=== PATIENT | female | born 2000 | race Caucasian/White ===

== ENCOUNTER 2021-12-07 10:39 | Emergency (ER) | payer MEDICAID, SELFPAY ==
--- NOTE | ~2021-12-07 | XR_ITS ---
EXAMINATION: XR ABDOMEN KUB CLINICAL INDICATION: Constipation COMPARISON: CT abdomen and pelvis from 04/28/2017 TECHNIQUE: AP view of the abdomen. FINDINGS: Nonobstructive bowel gas pattern. Mild fecal loading of the ascending colon. Osseous structures are intact. Visualized portions of the lower chest are unremarkable. Soft tissues are unremarkable. XR/XR KUB IMPRESSION: 1. Nonobstructive bowel gas pattern. 2. Mild fecal loading of the ascending colon.
[2021-12-07 10:44] VITALS: BP 144/91; PULSE 100; RESP 19; TEMP 36.6; O2SAT 98; BMI 25.6
[2021-12-07 10:56] LABS: MANUAL DIFF FLAG NO
[2021-12-07 10:57] LABS: Basophils Percent Auto 0.3 % (0-2); Eosinophils Absolute Auto 0.2 X10*3/uL (0.0-0.4); Eosinophils Percent Auto 2.5 % (0-4); Hematocrit 39.1 % (37.0-47.0); Imm Gran Abs Auto 0.01 X10*3/uL (0.00-0.03); Imm Gran Pct Auto 0.1 % (0.0-0.4); Lymphocytes Absolute Auto 2.4 X10*3/uL (1.2-4.9); Lymphocytes Percent Auto 31.9 % (20-40); Mean Corpuscular HGB Conc 33.2 g/dl (31.0-35.0); Mean Corpuscular Hemoglobin 28.2 pg (27.0-33.0); Mean Corpuscular Volume 84.8 fL (80.0-98.0); Mean Platelet Volume 9.6 fL (9.4-12.3); Monocytes Absolute Auto 0.6 X10*3/uL (0.1-1.2); Neutrophils Absolute Auto 4.4 x10*3/uL (2.0-8.3); Neutrophils Percent Auto 57.2 % (45-73); Platelet Count 398 X10*3/uL (160-400); Red Blood Count 4.61 X10*6/uL (4.20-5.50); Red Cell Distribution Width 11.9 % (11.0-16.0); White Blood Count 7.6 X10*3/uL (4.8-10.8)
[2021-12-07 10:58] LABS: Appearance Urine CLEAR; Color Urine YELLOW; Glucose Urine UA NEG (NEG); Leukocyte Esterase Urine NEG (NEG); Nitrite Urine NEG (NEG); Specific Gravity - Urine 1.015 (1.005-1.025); UACC Culture Trigger NO; Urine Blood 3+ (NEG); Urine Ketones NEG (NEG); Urine Protein NEG (NEG-TRACE)
[2021-12-07 11:05] LABS: Amorphous Sediment Urine 2+ /LPF; Bacteria Urine TRACE /LPF; Mucus Urine 1+ /LPF; RBC Urine 0-2 /HPF (0); Squamous Epithelial Cell Urine 4+ /LPF; WBC Urine 0-2 /HPF (0-4)
[2021-12-07 11:15] LABS: Alanine Aminotransferase 13 U/L (0-31); Albumin Level 4.4 g/dL (3.5-5.0); Alkaline Phosphatase 62 U/L (39-117); Anion Gap 13 (12-20); Aspartate Amino Transferase 14 U/L (5-31); Bilirubin Direct 0.2 mg/dL (0.0-0.5); Bilirubin Total 0.4 mg/dL (0.0-1.0); Blood Urea Nitrogen 8 mg/dL (9-16); Calcium 9.4 mg/dL (8.4-10.2); Carbon Dioxide 25 mmol/L (22-29); Chloride 103 mmol/L (96-108); Creatinine Clr Calc Pharmacy 108.8; Estimated Glomerular Filt Rate > 60; Glucose Random 100 mg/dL (60-115); Lipase 14 U/L (8-78); Potassium 3.9 mmol/L (3.3-5.1); Sodium 137 mmol/L (135-145); Total Protein 7.8 g/dL (6.5-8.0)
[2021-12-07 12:01] LABS: UPreg QC Valid YES; Urine Pregnancy NEGATIVE (NEGATIVE)
[2021-12-07 15:08] VITALS: BP 147/91; PULSE 79; RESP 19; TEMP 36.6; O2SAT 98
--- NOTE | 2021-12-07 15:10 | PC.NURSE ---
epigastric pain, nad, vitals rechecked
== END 2021-12-07 20:12 | disposition left against medical advice (07) ==
PROVIDERS: Emergency Provider Emergency Medicine; PCP Nurse Practitioner Family
DX: R10.9 Unspecified abdominal pain (principal); R11.2 Nausea with vomiting, unspecified
CPT/HCPCS: 36415; 74018; 80048; 80076; 81001; 81025; 83690; 85025; 99282; 99283

== ENCOUNTER 2022-01-04 15:26 | Outpatient (REF) | payer MEDICAID, SELFPAY ==
--- NOTE | ~2022-01-04 | US_ITS ---
EXAMINATION: US OBSTETRICAL ULTRASOUND CLINICAL INFORMATION: Less than 8 weeks of gestation, for size and dates. COMPARISON: None. LMP: 12/07/2021. Gestational age by maternal dates is 4 weeks 0 days. Estimated date of delivery by maternal dates is 09/13/2022. TECHNIQUE: Transabdominal imaging of pelvis is performed. FINDINGS: There is a single intrauterine gestational sac with visible yolk sac. No pole is visualized.. There is no significant subchorionic hemorrhage or hematoma. No heartbeat seen. MATERNAL ADNEXA: The right maternal ovary measures 3.0 x 2.1 x 1.9 cm. There is an involuting corpus luteal cyst The left maternal ovary measures 2.5 x 1.2 x 1.3 cm. No focal lesion seen. There is no significant maternal adnexal mass. No maternal pelvic ascites. US/US OB <= 14 weeks fetus IMPRESSION: There is an intrauterine gestational sac with yolk sac. pole is not seen. The gestational sac measurements correspond to 5 weeks and 3 days.
== END 2022-01-04 15:27 | disposition home or self-care (01) ==
LOC: HO.US 15:26
PROVIDERS: PCP Family Medicine; Visit Provider Family Medicine
DX: Z34.91 Encounter for supervision of normal pregnancy, unspecified, first trimester (principal); Z3A.01 Less than 8 weeks gestation of pregnancy
CPT/HCPCS: 76801

== ENCOUNTER → 2022-08-16 13:23 | Outpatient (BNV) | payer MEDICAID, SELFPAY | PROVIDERS: Visit Provider Internal Medicine Medical Oncology | DX: D50.9 Iron deficiency anemia, unspecified (principal) | CPT/HCPCS: 99204; 99213 ==

== ENCOUNTER 2022-09-26 12:54 | Outpatient (REF) | payer MEDICAID, SELFPAY ==
--- NOTE | ~2022-09-26 | US_ITS ---
EXAMINATION: US OBSTETRICAL ULTRASOUND CLINICAL INFORMATION: Confirm viability COMPARISON: None available.. LMP: 08/09/2022. Gestational age by maternal dates is 16 weeks 6 days. Estimated date of delivery by maternal dates is 05/16/2023. TECHNIQUE: Routine transabdominal pelvic ultrasound was performed FINDINGS: There is a single intrauterine gestational sac with visible yolk sac, embryo/fetus, and cardiac activity. There is no significant subchorionic hemorrhage or hematoma. HR: 123 beats per minute. CRL (crown rump length): 0.35 cm (6 weeks 0 days +/- 4 days). AARTI (estimated date of delivery): 05/22/2023 +/- 4 days. MATERNAL ADNEXA: The right maternal ovary measures 4.30 x 2.81 x 2.44 cm. There are 2 anechoic cysts measuring 2.0 x 1.4 x 1.7 cm and 2.0 x 2.4 x 2.7 cm. The left maternal ovary measures 2.73 x 1.96 x 1.54 cm There is no significant maternal adnexal mass. No maternal pelvic ascites. US/US OB <= 14 weeks fetus IMPRESSION: 1. Single intrauterine gestation with ultrasound gestational age of 6 weeks and 0 days +/- 4 days. 2. Estimated date of delivery is 05/22/2023 +/- 4 days. 3. 2 simple right ovarian cyst.
== END 2022-09-26 12:55 | disposition home or self-care (01) ==
LOC: HO.HMGCX 12:54
PROVIDERS: Visit Provider Family Medicine
DX: Z34.92 Encounter for supervision of normal pregnancy, unspecified, second trimester (principal); Z3A.16 16 weeks gestation of pregnancy
CPT/HCPCS: 76801

== ENCOUNTER 2022-12-07 09:10 | Outpatient (REF) | payer MEDICAID, SELFPAY | END 2022-12-07 09:11 | disposition home or self-care (01) | LOC: HO.MDS 09:10 | PROVIDERS: Visit Provider Internal Medicine Medical Oncology | DX: D50.9 Iron deficiency anemia, unspecified (principal) | CPT/HCPCS: 96365; J1756 ==

== ENCOUNTER 2022-12-14 09:28 | Outpatient (REF) | payer MEDICAID, SELFPAY | END 2022-12-14 09:29 | disposition home or self-care (01) | LOC: HO.MDS 09:28 | PROVIDERS: Visit Provider Internal Medicine Medical Oncology | DX: D50.9 Iron deficiency anemia, unspecified (principal) | CPT/HCPCS: 96365; J1756 ==

== ENCOUNTER 2022-12-21 09:32 | Outpatient (REF) | payer MEDICAID, SELFPAY | END 2022-12-21 09:33 | disposition home or self-care (01) | LOC: HO.MDS 09:32 | PROVIDERS: Visit Provider Internal Medicine Medical Oncology | DX: D50.9 Iron deficiency anemia, unspecified (principal) | CPT/HCPCS: 96365; J1756 ==

== ENCOUNTER 2022-12-28 09:30 | Outpatient (REF) | payer MEDICAID, SELFPAY ==
[2022-12-28 10:35] LABS: MANUAL DIFF FLAG NO
[2022-12-28 10:37] LABS: Basophils Percent Auto 0.5 % (0-2); Eosinophils Absolute Auto 0.2 X10*3/uL (0.0-0.4); Eosinophils Percent Auto 2.5 % (0-4); Hematocrit 36.6 % (37.0-47.0); Hemoglobin 11.4 g/dl (12.0-16.0); Imm Gran Abs Auto 0.01 X10*3/uL (0.00-0.03); Imm Gran Pct Auto 0.2 % (0.0-0.4); Lymphocytes Absolute Auto 1.5 X10*3/uL (1.2-4.9); Lymphocytes Percent Auto 24.8 % (20-40); Mean Corpuscular HGB Conc 31.1 g/dl (31.0-35.0); Mean Corpuscular Hemoglobin 24.1 pg (27.0-33.0); Mean Corpuscular Volume 77.2 fL (80.0-98.0); Mean Platelet Volume 10.2 fL (9.4-12.3); Monocytes Absolute Auto 0.5 X10*3/uL (0.1-1.2); Monocytes Percent Auto 8.2 % (2-11); Neutrophils Absolute Auto 3.9 x10*3/uL (2.0-8.3); Neutrophils Percent Auto 63.8 % (45-73); Platelet Count 369 X10*3/uL (160-400); Red Blood Count 4.74 X10*6/uL (4.20-5.50); Red Cell Distribution Width 19.4 % (11.0-16.0); White Blood Count 6.1 X10*3/uL (4.8-10.8)
[2022-12-28 11:20] LABS: Ferritin 76 ng/mL (10-122)
== END 2022-12-28 09:31 | disposition home or self-care (01) ==
LOC: HO.MDS 09:30
PROVIDERS: Visit Provider Internal Medicine Medical Oncology
DX: D50.9 Iron deficiency anemia, unspecified (principal)
CPT/HCPCS: 36415; 82728; 85025; 96365; J1756

== ENCOUNTER 2023-01-04 09:28 | Outpatient (REF) | payer MEDICAID, SELFPAY | END 2023-01-04 09:29 | disposition home or self-care (01) | LOC: HO.MDS 09:28 | PROVIDERS: Visit Provider Internal Medicine Medical Oncology | DX: D50.9 Iron deficiency anemia, unspecified (principal) | CPT/HCPCS: 96365; J1756 ==

== ENCOUNTER 2023-01-11 09:11 | Outpatient (REF) | payer MEDICAID, SELFPAY | END 2023-01-11 09:12 | disposition home or self-care (01) | LOC: HO.MDS 09:11 | PROVIDERS: Visit Provider Internal Medicine Medical Oncology | DX: D50.9 Iron deficiency anemia, unspecified (principal) | CPT/HCPCS: 96365; J1756 ==

== ENCOUNTER 2023-01-14 13:07 | Outpatient (AMB) | payer MEDICAID, SELFPAY ==
[2023-01-14 13:11] VITALS: BP 140/63; PULSE 84; BMI 27.6
--- NOTE | 2023-01-14 13:11 | A.OFFVIS_ITS ---
Intake Vital Signs 01/14/23 13:11 Height 5 ft 2 in Weight 151 lb BMI 27.6 BP 140/63 H Blood Pressure Location Rt brachial Position Sitting Pulse 84 Intake Visit Reasons: Skin lesion anus Intake Note: This patient presents for an assessment for skin lesions of the anus. Patient c/o; occasional rectal bleeding, describes feeling a tear, describes history of constiapation. In Service Education Teacher Required: No Accompanied by: Mother Allergies fluoxetine [From PROZAC] Allergy (Unknown, Unverified 01/14/23 13:16) HIVES penicillin V Allergy (Unknown, Verified 01/14/23 13:16) hives Medication List - Last Reconciled 01/14/23 by Bravo Jarrell MD acetaminophen 325 mg PO DAILY PRN oxycodone 5 mg PO DAILY PRN HPI Skin lesion anus HPI Details 22-year-old female here for a ?anal lesion . She had noticed this when she was 6 years ago. She says that this has persisted and she has had significant discomfort along with difficulty with hygiene. She wants this removed. She also describes a history of chronic constipation. She denies bleeding. [facility] Medical History (Updated 01/14/23 @ 13:31 by Bravo Jarrell MD) External hemorrhoids with complication Surgical History History of Family History Maternal Grandmother Colon cancer Social History Household Members: Children Housing: House Are you a primary property caretaker to a significant other at home: No Do you presently have visiting nurse or other home services: No Patient Tobacco Use Status: Never used Tobacco Second Hand Smoke Exposure: No service: No Current occupational status: unemployed Review of Systems Const Denies chills and Denies fever(s) Card Denies chest pain, Denies dyspnea and Denies dyspnea on exertion Resp Denies cough, Denies dyspnea and Denies dyspnea on exertion GI Denies hematochezia, Denies change in bowel habits and Reports constipation Denies hematuria Musc Denies back pain and Denies limited range of motion Neuro Denies focal weakness and Denies convulsions Psych Denies depression and Denies mood swings Physical Exam Vital Signs: Last Vital Signs Pulse 84 01/14/23 13:11 BP 140/63 H 01/14/23 13:11 BMI result Body Mass Index 27.6 Const General: comfortable and no acute distress Orientation/consciousness: patient oriented x3 Neck Neck: Yes no lymphadenopathy Resp Auscultation: clear to auscultation bilaterally Cardio Rhythm: regular rhythm GI Other: Rectal exam shows large external hemorrhoidal column on the left anal verge to the anal canal Palpation (GI): Soft to palpation, nontender and no guarding Neuro General: patient oriented x3 Assessment & Plan Assessment & Plan (1) External hemorrhoids with complication: Code(s): K64.4 - Residual hemorrhoidal skin tags Plan: She has a large external hemorrhoidal column as described above. She wants to proceed with hemorrhoidectomy. She describes difficulty with hygiene and recurrent discomfort I explained to the technique of exam under anesthesia and hemorrhoidectomy. I reviewed with her the technique of this procedure as well as the risks, benefits, and alternatives. She says that she wanted this done under local anesthesia. I explained to her that it will be very difficult to do his under local anesthesia because of the location and size of the lesion. I told her that it will be extremely uncomfortable for her to be awake and it may be unsafe. She says he does not want to proceed at this time if this requires anesthesia. I told her and her mother that she is welcome to come back when she decides to proceed. Coding Level of Care Code New Pt Level 3 (58703) Diagnoses External hemorrhoids with complication K64.4
== END 2023-01-14 13:35 | disposition home or self-care (01) ==
PROVIDERS: PCP Family Medicine; Referring Provider Family Medicine; Visit Provider Surgery
DX: K64.4 Residual hemorrhoidal skin tags (principal)
CPT/HCPCS: 99203

== ENCOUNTER → 2023-01-14 13:07 | Outpatient (BNVA) | payer MEDICAID, SELFPAY | PROVIDERS: PCP Family Medicine; Referring Provider Family Medicine; Visit Provider Surgery | DX: K64.4 Residual hemorrhoidal skin tags (principal) | CPT/HCPCS: 99202 ==

== ENCOUNTER 2023-01-18 09:36 | Outpatient (REF) | payer MEDICAID, SELFPAY | END 2023-01-18 09:37 | disposition home or self-care (01) | LOC: HO.MDS 09:36 | PROVIDERS: Visit Provider Internal Medicine Medical Oncology | DX: D50.8 Other iron deficiency anemias (principal) | CPT/HCPCS: 96365; J1756 ==

== ENCOUNTER 2023-01-31 13:41 | Outpatient (REF) | payer MEDICAID, SELFPAY ==
[2023-01-31 14:24] LABS: MANUAL DIFF FLAG NO
[2023-01-31 14:28] LABS: Basophils Percent Auto 0.5 % (0-2); Eosinophils Absolute Auto 0.2 X10*3/uL (0.0-0.4); Hematocrit 38.5 % (37.0-47.0); Hemoglobin 12.4 g/dl (12.0-16.0); Imm Gran Abs Auto 0.01 X10*3/uL (0.00-0.03); Imm Gran Pct Auto 0.2 % (0.0-0.4); Lymphocytes Absolute Auto 2.1 X10*3/uL (1.2-4.9); Lymphocytes Percent Auto 36.7 % (20-40); Mean Corpuscular HGB Conc 32.2 g/dl (31.0-35.0); Mean Corpuscular Hemoglobin 26.4 pg (27.0-33.0); Mean Corpuscular Volume 82.1 fL (80.0-98.0); Monocytes Absolute Auto 0.5 X10*3/uL (0.1-1.2); Monocytes Percent Auto 8.9 % (2-11); Neutrophils Absolute Auto 2.9 x10*3/uL (2.0-8.3); Neutrophils Percent Auto 50.7 % (45-73); Platelet Count 322 X10*3/uL (160-400); Red Blood Count 4.69 X10*6/uL (4.20-5.50); White Blood Count 5.6 X10*3/uL (4.8-10.8)
[2023-01-31 15:06] LABS: Ferritin 117 ng/mL (10-122)
== END 2023-01-31 13:42 | disposition home or self-care (01) ==
LOC: HO.MDS 13:41
PROVIDERS: Visit Provider Internal Medicine Medical Oncology
DX: D50.8 Other iron deficiency anemias (principal)
CPT/HCPCS: 36415; 82728; 85025; 96365; J1756

== ENCOUNTER 2023-06-17 13:40 | Outpatient (REF) | payer MEDICAID, SELFPAY ==
[2023-06-18 08:39] LABS: HCG Tumor Marker 70 mIU/mL
== END 2023-06-17 13:41 | disposition home or self-care (01) ==
LOC: HO.CHCLDS 13:40
PROVIDERS: Visit Provider Family Medicine
DX: Z34.90 Encounter for supervision of normal pregnancy, unspecified, unspecified trimester (principal)
CPT/HCPCS: 36415; 84702

== ENCOUNTER 2023-07-13 14:37 | Emergency (ER) | payer MEDICAID, SELFPAY ==
--- NOTE | ~2023-07-13 | CT_ITS ---
EXAMINATION: CT HEAD WITHOUT CONTRAST CLINICAL INFORMATION: Migraine. COMPARISON: None available. TECHNIQUE: Contiguous axial imaging was performed from the skull base to vertex without intravenous administration of contrast. This CT examination was performed using dose optimization techniques as appropriate, variously including the following: *Automated exposure control. *Adjustment of mA and/or kV according to patient size (this includes techniques or standardized protocols for targeted exams where dose is matched to indication/reason for exam; i.e. extremities or head). *Use of iterative reconstruction technique. DLP: 616 mGy-cm FINDINGS: There is no evidence of acute intracranial hemorrhage or edematous territorial infarction. Perez-white matter differentiation is preserved. There is no abnormal attenuation within the brain parenchyma. The ventricles are normal in morphology and size. No evidence for obstructive hydrocephalus. Normal positioning of the cerebellar tonsils. The suprasellar cistern remains widely patent. No abnormal mass effect or midline shift. No extra-axial fluid collections. No acute soft tissue or osseous abnormalities. Mild mucosal thickening of the paranasal sinuses. The mastoid air cells and middle ear cavities are clear. CT/CT head/brain wo IV con IMPRESSION: No evidence of acute intracranial hemorrhage or edematous territorial infarction. No abnormal mass effect on the noncontrast evaluation.
[2023-07-13 15:41] VITALS: BP 137/91; PULSE 92; RESP 18; TEMP 37.3; O2SAT 100; BMI 26.5
--- NOTE | 2023-07-13 15:41 | ED_ITS ---
HPI - Headache General Chief Complaint: Headache Stated Complaint: headache/ nausea Related Data Home Medications Medication Instructions Recorded Confirmed acetaminophen 325 mg tablet 325 mg PO DAILY PRN Pain 08/16/22 05/07/23 oxycodone 5 mg tablet 5 mg PO DAILY PRN Back Pain 08/16/22 05/07/23 Allergies Allergy/AdvReac Type Severity Reaction Status Date / Time fluoxetine [From PROZAC] Allergy Unknown HIVES Verified 07/13/23 15:41 penicillin V Allergy Unknown hives Verified 07/13/23 15:41 ferrous sulfate AdvReac Stomach Verified 07/13/23 15:41 Upset PMFSH Past Medical History Onset Date is defined in the Problem List Problems that require an onset date and time if occurred within 24 hrs of arrival to the ED Aortic Dissection and Rupture; Neurologic impairment; Cardiopulmonary Arrest; Endotracheal Intubation; Insertion or Replacement of Mechanical Circulatory Assist Device Medical History (Updated 07/16/23 @ 10:02 by ORVILLE Ball) External hemorrhoids with complication Surgical History History of Family History Family History Maternal Grandmother Colon cancer Social History Social History Household Members: Children Housing: House Are you a primary respiratory care practitioner to a significant other at home: No Do you presently have visiting nurse or other home services: No Patient Tobacco Use Status: Never used Tobacco Second Hand Smoke Exposure: No Advance Directives: No Advance Directives Information Provided: Yes service: No Current occupational status: unemployed Physical Exam 2 Vital Signs: Vital Signs: Last Vital Signs Temp 99.2 F 07/13/23 15:41 Pulse 92 07/13/23 15:41 Resp 18 07/13/23 15:41 BP 137/91 H 07/13/23 15:41 Pulse Ox 100 07/13/23 15:41 O2 Del Method Room Air 07/13/23 15:41 BMI result Body Mass Index 26.5 Course Course Course Narrative: This is an RME: Additional HPI, ROS, PE not included below will be deferred to primary provider. This is a 23 y/o F presenting to the ER with complaints of severe headache x 3 days ago. Endorsing vomiting which started today. Left methodist area. Hx of migraines, this headache is different as it is more severe. Pain worsens more with straining (having a BM). Had miscarriage 2 weeks ago > was 6 weeks . Plan: Reevaluation(s) Reevaluation #1: Patient eloped prior to completing treatment Medical Decision Making Lab Data 07/13/23 15:53 07/13/23 15:53 Labs: Lab Results 07/13/23 Range/Units 15:53 WBC 12.4 H (4.8-10.8) X10*3/uL RBC 4.70 (4.20-5.50) X10*6/uL Hgb 13.4 (12.0-16.0) g/dl Hct 39.6 (37.0-47.0) % MCV 84.3 (80.0-98.0) fL MCH 28.5 (27.0-33.0) pg MCHC 33.8 (31.0-35.0) g/dl RDW 11.8 (11.0-16.0) % Plt Count 366 (160-400) X10*3/uL MPV 9.7 (9.4-12.3) fL Immature Gran % (Auto) 0.3 (0.0-0.4) % Neut % (Auto) 81.4 H (45-73) % Lymph % (Auto) 11.5 L (20-40) % [place] % (Auto) 5.3 (2-11) % Eos % (Auto) 1.3 (0-4) % Baso % (Auto) 0.2 (0-2) % Lymph # (Auto) 1.4 (1.2-4.9) X10*3/uL [place] # (Auto) 0.7 (0.1-1.2) X10*3/uL Eos # (Auto) 0.2 (0.0-0.4) X10*3/uL Baso # (Auto) 0.0 (0.0-0.2) X10*3/uL Abs Immat Gran (auto) 0.04 H (0.00-0.03) X10*3/uL Absolute Neuts (auto) 10.1 H (2.0-8.3) x10*3/uL Absolute Nucleated RBC 0.000 (0.0-0.012) X10*3/uL Nucleated RBC % (auto) 0.0 (0.0-0.2) /100WBC Sodium 138 (135-145) mmol/L Potassium 4.6 (3.3-5.1) mmol/L Chloride 106 (96-108) mmol/L Carbon Dioxide 25 (22-29) mmol/L Anion Gap 12 (12-20) BUN 8 L (9-16) mg/dL Creatinine 0.67 (0.5-1.4) mg/dL Estim Creat Clear Calc 115.2 Estimated GFR > 60 Random Glucose 96 (60-115) mg/dL Calcium 9.8 (8.4-10.2) mg/dL Total Bilirubin 0.3 (0.0-1.0) mg/dL AST 33 H (5-31) U/L ALT 38 H (0-31) U/L Alkaline Phosphatase 79 (39-117) U/L Total Protein 7.9 (6.5-8.0) g/dL Albumin 4.1 (3.5-5.0) g/dL Beta HCG, Quant < 2 mIU/mL Urine Color Yellow Urine Appearance Clear Urine pH 6.5 (5.0-9.0) Ur Specific [place] 1.025 (1.005-1.025) Urine Protein Negative (Neg-Trace) mg/dL Urine Glucose (UA) Negative (Negative) mg/dL Urine Ketones Negative (Negative) mg/dL Urine Blood Negative (Negative) Urine Nitrite Negative (Negative) Ur Leukocyte Esterase Negative (Negative) Discharge Plan Discharge Clinical Impression: Headache Patient Disposition: Left W/O Completing Treatment Prescriptions: No Action acetaminophen 325 mg tablet 325 mg PO DAILY PRN (Reason: Pain) oxycodone 5 mg tablet 5 mg PO DAILY PRN (Reason: Back Pain) Discharge Date/Time: 07/13/23 22:19
[2023-07-13 15:58] LABS: MANUAL DIFF FLAG NO
[2023-07-13 16:07] LABS: Appearance Urine Clear; Color Urine Yellow; Glucose Urine UA Negative (Negative); Leukocyte Esterase Urine Negative (Negative); Nitrite Urine Negative (Negative); PH 6.5 (5.0-9.0); Specific Gravity - Urine 1.025 (1.005-1.025); Urine Blood Negative (Negative); Urine Ketones Negative (Negative); Urine Protein Negative (Neg-Trace)
[2023-07-13 16:10] LABS: Basophils Percent Auto 0.2 % (0-2); Eosinophils Absolute Auto 0.2 X10*3/uL (0.0-0.4); Eosinophils Percent Auto 1.3 % (0-4); Hematocrit 39.6 % (37.0-47.0); Hemoglobin 13.4 g/dl (12.0-16.0); Imm Gran Abs Auto 0.04 X10*3/uL (0.00-0.03); Imm Gran Pct Auto 0.3 % (0.0-0.4); Lymphocytes Absolute Auto 1.4 X10*3/uL (1.2-4.9); Lymphocytes Percent Auto 11.5 % (20-40); Mean Corpuscular HGB Conc 33.8 g/dl (31.0-35.0); Mean Corpuscular Hemoglobin 28.5 pg (27.0-33.0); Mean Corpuscular Volume 84.3 fL (80.0-98.0); Mean Platelet Volume 9.7 fL (9.4-12.3); Monocytes Absolute Auto 0.7 X10*3/uL (0.1-1.2); Monocytes Percent Auto 5.3 % (2-11); Neutrophils Absolute Auto 10.1 x10*3/uL (2.0-8.3); Neutrophils Percent Auto 81.4 % (45-73); Platelet Count 366 X10*3/uL (160-400); Red Cell Distribution Width 11.8 % (11.0-16.0); White Blood Count 12.4 X10*3/uL (4.8-10.8)
[2023-07-13 16:13] LABS: Alanine Aminotransferase 38 U/L (0-31); Albumin Level 4.1 g/dL (3.5-5.0); Alkaline Phosphatase 79 U/L (39-117); Anion Gap 12 (12-20); Aspartate Amino Transferase 33 U/L (5-31); Bilirubin Total 0.3 mg/dL (0.0-1.0); Blood Urea Nitrogen 8 mg/dL (9-16); Calcium 9.8 mg/dL (8.4-10.2); Carbon Dioxide 25 mmol/L (22-29); Chloride 106 mmol/L (96-108); Creatinine Clr Calc Pharmacy 115.2; Estimated Glomerular Filt Rate > 60; Glucose Random 96 mg/dL (60-115); Potassium 4.6 mmol/L (3.3-5.1); Sodium 138 mmol/L (135-145); Total Protein 7.9 g/dL (6.5-8.0)
[2023-07-13 16:20] LABS: HCG Quantitative < 2 mIU/mL
--- NOTE | 2023-07-13 22:18 | PC.NURSE ---
Pt not visualized in ED WR when called.
== END 2023-07-13 22:19 | disposition left against medical advice (07) ==
PROVIDERS: Physician Assistant Medical; Emergency Provider Emergency Medicine
DX: R51.9 Headache, unspecified (principal)
CPT/HCPCS: 36415; 70450; 80053; 81003; 84702; 85025; 99282; 99284

== ENCOUNTER 2024-03-17 13:00 | Outpatient (RCR) | payer MEDICAID, SELFPAY ==
[2024-01-28 11:11] VITALS: BP 128/79; PULSE 82; RESP 14; TEMP 36.6; O2SAT 100
[2024-01-28] MEDS: Iron Sucrose Complex 200 MG in 0.9 % Sodium Chloride 100 ML 440 MG IV (11:21)
[2024-01-28] MEDS: 0.9 % Sodium Chloride Flush 10 ML SYRINGE 5 ML IVFLUSH (11:43)
[2024-02-04 12:56] VITALS: BP 136/68; PULSE 96; RESP 18; TEMP 36.4; O2SAT 98
[2024-02-04] MEDS: Iron Sucrose Complex 200 MG in 0.9 % Sodium Chloride 100 ML 440 MG IV (13:15)
[2024-02-04] MEDS: 0.9 % Sodium Chloride Flush 10 ML SYRINGE 5 ML IVFLUSH (13:31)
[2024-02-11 13:45] VITALS: BP 119/71; PULSE 79; RESP 14; TEMP 36.8; O2SAT 99
[2024-02-11] MEDS: Iron Sucrose Complex 200 MG in 0.9 % Sodium Chloride 100 ML 440 MG IV (13:54)
[2024-02-11] MEDS: 0.9 % Sodium Chloride Flush 10 ML SYRINGE 5 ML IVFLUSH (14:17)
[2024-02-18 13:26] VITALS: BP 117/78; PULSE 94; RESP 18; TEMP 37; O2SAT 98
[2024-02-18 13:42] LABS: MANUAL DIFF FLAG NO
[2024-02-18 13:46] LABS: Basophils Percent Auto 0.1 % (0-2); Eosinophils Absolute Auto 0.2 X10*3/uL (0.0-0.4); Eosinophils Percent Auto 2.5 % (0-4); Hematocrit 32.7 % (37.0-47.0); Hemoglobin 10.3 g/dl (12.0-16.0); Imm Gran Abs Auto 0.04 X10*3/uL (0.00-0.03); Imm Gran Pct Auto 0.6 % (0.0-0.4); Lymphocytes Absolute Auto 1.7 X10*3/uL (1.2-4.9); Mean Corpuscular HGB Conc 31.5 g/dl (31.0-35.0); Mean Corpuscular Hemoglobin 26.3 pg (27.0-33.0); Mean Corpuscular Volume 83.4 fL (80.0-98.0); Mean Platelet Volume 9.3 fL (9.4-12.3); Monocytes Absolute Auto 0.6 X10*3/uL (0.1-1.2); Neutrophils Absolute Auto 4.2 x10*3/uL (2.0-8.3); Neutrophils Percent Auto 62.8 % (45-73); Platelet Count 264 X10*3/uL (160-400); Red Blood Count 3.92 X10*6/uL (4.20-5.50); Red Cell Distribution Width 16.3 % (11.0-16.0); White Blood Count 6.8 X10*3/uL (4.8-10.8)
[2024-02-18] MEDS: Iron Sucrose Complex 200 MG in 0.9 % Sodium Chloride 100 ML 400 MG IV (13:46)
[2024-02-18] MEDS: 0.9 % Sodium Chloride Flush 10 ML SYRINGE 5 ML IVFLUSH (14:04)
[2024-02-18 14:22] LABS: Ferritin 77 ng/mL (10-122)
[2024-02-25 13:43] VITALS: BP 129/77; PULSE 90; RESP 20; TEMP 37.2; O2SAT 99
[2024-02-25] MEDS: Iron Sucrose Complex 200 MG in 0.9 % Sodium Chloride 100 ML 440 MG IV (13:51)
[2024-03-03 13:52] VITALS: BP 119/81; PULSE 100; RESP 18; TEMP 36.7; O2SAT 99
[2024-03-03] MEDS: Iron Sucrose Complex 200 MG in 0.9 % Sodium Chloride 100 ML 440 MG IV (14:00)
[2024-03-03] MEDS: 0.9 % Sodium Chloride Flush 10 ML SYRINGE 5 ML IVFLUSH (14:17)
[2024-03-10 13:45] VITALS: BP 143/92; PULSE 95; RESP 22; TEMP 37.2; O2SAT 100
[2024-03-10] MEDS: Iron Sucrose Complex 200 MG in 0.9 % Sodium Chloride 100 ML 440 MG IV (13:54)
[2024-03-17 13:56] VITALS: BP 130/83; PULSE 110; RESP 20; TEMP 36; O2SAT 99
[2024-03-17] MEDS: Iron Sucrose Complex 200 MG in 0.9 % Sodium Chloride 100 ML 440 MG IV (14:17)
[2024-03-17] MEDS: 0.9 % Sodium Chloride Flush 10 ML SYRINGE 5 ML IVFLUSH (14:28)
--- NOTE | 2024-03-17 14:51 | HO.INF ---
lab in - blood drawn. [facility] well.
[2024-03-17 14:53] LABS: MANUAL DIFF FLAG NO
[2024-03-17 15:06] LABS: Basophils Percent Auto 0.3 % (0-2); Eosinophils Absolute Auto 0.2 X10*3/uL (0.0-0.4); Eosinophils Percent Auto 2.6 % (0-4); Hematocrit 35.9 % (37.0-47.0); Imm Gran Abs Auto 0.05 X10*3/uL (0.00-0.03); Imm Gran Pct Auto 0.7 % (0.0-0.4); Lymphocytes Absolute Auto 1.4 X10*3/uL (1.2-4.9); Mean Corpuscular HGB Conc 33.4 g/dl (31.0-35.0); Mean Corpuscular Hemoglobin 27.8 pg (27.0-33.0); Mean Corpuscular Volume 83.3 fL (80.0-98.0); Mean Platelet Volume 9.4 fL (9.4-12.3); Monocytes Absolute Auto 0.6 X10*3/uL (0.1-1.2); Neutrophils Absolute Auto 4.5 x10*3/uL (2.0-8.3); Neutrophils Percent Auto 66.4 % (45-73); Platelet Count 239 X10*3/uL (160-400); Red Blood Count 4.31 X10*6/uL (4.20-5.50); Red Cell Distribution Width 17.7 % (11.0-16.0); White Blood Count 6.8 X10*3/uL (4.8-10.8)
[2024-03-17 15:29] LABS: Ferritin 149 ng/mL (10-122)
== END 2024-03-17 14:49 | disposition home or self-care (01) ==
LOC: HO.INF 13:00
PROVIDERS: Visit Provider Internal Medicine Medical Oncology
DX: D50.9 Iron deficiency anemia, unspecified (principal)
CPT/HCPCS: 36415; 82728; 85025; 96365; 96374; J1756

== ENCOUNTER 2024-12-01 14:20 | Outpatient (REF) | payer MEDICAID, SELFPAY ==
--- OUTSIDE RECORDS SUMMARY | 2024-12-01 16:09 | XMS_ITS | Encounter Summary ---
Author Organization [employer] Address [address] [place] [address] Care Team Providers Care Remotely Piloted Vehicle Controller Name Role Phone Hanna Mills MD Primary Care Provider [phone] Encounter Details Date Type Department Care Team (Late st Contact Info) Description 11/26/2023 Orders Only [facility] [address] [place], [place] [phone] Blake Enciso MD [address] [place], [place] [phone] Social History Tobacco Use Types Packs/Day Years Used Date Smoking Tobacco: Never Passive Smoke Exposure: Never Smokeless Tobacco: Never Alcohol Use Standard Drinks/Week Comments Never 0 (1 standard drink = 0.6 oz pur e alcohol) Depression Answer Date Recorded Patient Health Questionnaire-9 Score 11 04/09/2023 Housing Stability Answer Date Recorded What is your housing situation today? I have sanket bar 09/04/[address] you li ve. Do you have problems with any of the following? None of the above 09/04/2023 Food Insecurity Answer Date Recorded Within the past 12 months, y ou worried that your food would run out before you got money to buy more: Never True 09/04/2023 Within the past 12 months,th e food you bought just didn't last and you didn't have enough money to get more: Never True 11/2023 Transportation Answer Date Recorded In the past 12 months, has l ack of transportation kept you from medical appts, meetings, work or from getting things needed for daily living? Yes, it has kept me from medical appointments or getting medications. 09/04/2023 Utilities Answer Date Recorded In the past 12 months, has t he electric, gas, oil or water company threatened to shut off services in your home? No 09/04/2023 Depression Answer Date Recorded Patient Health Questionnaire-2 Score 5 04/09/2023 Comments Yes Sex and Gender Information Value Date Recorded Sex Assigned at Female 04/30/2022 10:15 AM EDT Legal Sex Female 10:15 AM EDT Gender Identity Female 04/30/2022 10:15 AM EDT Sexual Orientation Straight 04/30/2022 10 :15 AM EDT documented as of this encounter Plan of Treatment Upcoming Encounters Date Type Department Care Team (Late st Contact Info) Description 12/29/2024 1:30 PM EDT Office Visit [facility] [address] [place] [phone] Blake Enciso MD [address] [place] [phone] documented as of this encounter Visit Diagnoses Not on filedocumented in this encounter Additional Health Concerns Assessment Noted Time PHQ-9 Depression Total Score: 11 023 11:56 AM EDT documented as of this encounter Care Teams Remotely Piloted Vehicle Controller Relationship Specialty Start Date End Date Hanna Mills MD [address] [place] [phone] PCP - General Family Medicine 02/25/22 documented as of this encounter
[2024-12-01 16:58] LABS: MANUAL DIFF FLAG NO
[2024-12-01 17:15] LABS: Basophils Percent Auto 0.4 % (0-2); Eosinophils Percent Auto 0.4 % (0-4); Hematocrit 32.2 % (37.0-47.0); Hemoglobin 9.7 g/dl (12.0-16.0); Imm Gran Abs Auto 0.01 X10*3/uL (0.00-0.03); Imm Gran Pct Auto 0.1 % (0.0-0.4); Lymphocytes Absolute Auto 1.5 X10*3/uL (1.2-4.9); Lymphocytes Percent Auto 22.5 % (20-40); Mean Corpuscular HGB Conc 30.1 g/dl (31.0-35.0); Mean Corpuscular Hemoglobin 22.7 pg (27.0-33.0); Mean Corpuscular Volume 75.2 fL (80.0-98.0); Mean Platelet Volume 10.6 fL (9.4-12.3); Monocytes Absolute Auto 0.4 X10*3/uL (0.1-1.2); Monocytes Percent Auto 6.3 % (2-11); Neutrophils Absolute Auto 4.8 x10*3/uL (2.0-8.3); Neutrophils Percent Auto 70.3 % (45-73); Platelet Count 476 X10*3/uL (160-400); Red Blood Count 4.28 X10*6/uL (4.20-5.50); Red Cell Distribution Width 13.9 % (11.0-16.0); White Blood Count 6.8 X10*3/uL (4.8-10.8)
[2024-12-01 17:45] LABS: Alanine Aminotransferase 33 U/L (0-31); Albumin Level 4.8 g/dL (3.5-5.0); Alkaline Phosphatase 65 U/L (39-117); Anion Gap 10 (12-20); Aspartate Amino Transferase 27 U/L (5-31); Bilirubin Total 0.3 mg/dL (0.0-1.0); Blood Urea Nitrogen 12 mg/dL (9-16); Calcium 9.6 mg/dL (8.4-10.2); Carbon Dioxide 27 mmol/L (22-29); Chloride 105 mmol/L (96-108); Estimated Glomerular Filt Rate > 60; Glucose Random 93 mg/dL (60-115); Potassium 4.2 mmol/L (3.3-5.1); Sodium 138 mmol/L (135-145); Total Protein 7.9 g/dL (6.5-8.0)
[2024-12-01 17:48] LABS: Ferritin 4 ng/mL (10-122)
[2024-12-03 04:12] LABS: Syphilis Screen Nonreactive (Nonreactive)
[2024-12-03 05:14] LABS: HIV AB/AG Nonreactive (Nonreactive); HIV Num 1 0.08 S/CO (0.00-0.99); ~HepC Num1 0.26 S/CO (0.00-0.79); ~Hepatitis C Antibody Nonreactive (Nonreactive)
[2024-12-04 05:30] LABS: Hepatitis A Antibody IgG REACTIVE (Nonreactive); ~Hepatitis A Antibody IgG 4.02 S/CO (0.00-0.99)
[2024-12-04 08:22] LABS: TS Negative Control Passed; TS Panel A 0; TS Panel B 0; TS Positive Control Passed; TSpotTB Negative (Negative)
== END 2024-12-01 14:21 | disposition home or self-care (01) ==
LOC: HO.HHCL 14:20
PROVIDERS: Internal Medicine Medical Oncology; Visit Provider Emergency Medicine
DX: D50.9 Iron deficiency anemia, unspecified (principal); F11.20 Opioid dependence, uncomplicated
CPT/HCPCS: 36415; 80053; 82728; 85025; 86481; 86708; 86780; 86803; 87389

== ENCOUNTER 2025-01-08 09:35 | Outpatient (AMB) | payer MEDICAID, SELFPAY ==
--- OUTSIDE RECORDS SUMMARY | 2025-01-08 09:53 | XMS_ITS | Clinical Summary ---
Author Organization [facility] Address [address] [place] [address] Care Team Providers Care Blocker And Sewer Name Role Phone Unavailable Primary Care Provider Unavailabl e Social History Tobacco Use Types Packs/Day Years Used Date Smoking Tobacco: Never Assessed Sex and Gender Information Value Date Recorded Sex Assigned at Female 10/17/2023 2:58 PM EDT Gender Identity Not on file Sexual Orientation Not on file Job Start Date Occupation Industry Not on file Not on file Not on file Plan of Treatment Not on file
--- OUTSIDE RECORDS SUMMARY | 2025-01-08 09:53 | XMS_ITS | Encounter Summary ---
Author Organization [employer] Address [address] [place] [address] Care Team Providers Care Processing Clerk Name Role Phone Hanna Mills MD Primary Care Provider Encounter Details Date Type Department Care Team (Late st Contact Info) Description 11/26/2023 Orders Only [facility] [address] [place], [place] [phone] Blake Enciso MD [address] [place], [place] [phone] Social History Tobacco Use Types Packs/Day Years [...] Care Team (Late st Contact Info) Description 01/26/2025 1:45 PM EDT Office Visit [facility] [address] [place] [phone] Blake Enciso MD [address] [place] [phone] documented as of this encounter Visit Diagnoses Not on filedocumented in this encounter Additional Health Concerns Assessment Noted Time PHQ-9 Depression Total Score: 11 023 11:56 AM EDT documented as of this encounter Care Teams Processing Clerk Relationship Specialty Start Date End Date Hanna Mills MD [address] [place] [id number] PCP - General Family Medicine 02/25/22 documented as of this encounter
--- OUTSIDE RECORDS SUMMARY | 2025-01-08 09:53 | XMS_ITS | Clinical Summary ---
Author Organization [facility] Address [address] [place] [address] Care Team Providers Care Fitter Armament Name Role Phone Physician, No Pcp Primary Care Provider Unavaila ble Allergies Active Allergy Reactions Criticality Noted Date Comments Fluoxetine Hives 10/22/2023 Hives/Urticaria Penicillins Hives 12/07/2019 Hives/Urticaria Medications aspirin 81 mg EC tablet Take 2 Tablets by mouth daily. 11/28/2023 Active blood pressure test kit (BLOOD PRESSURE MONITOR [facility] [place]) USE TO CHECK BLOOD PRESSURE EVERY DAY NEEDED 10/01/2023 Active docusate sodium (COLACE) 100 mg capsule TAKE 1 OR 2 CAPSULES BY MOUTH AT BEDTIME NEEDED FOR CONSTIPATION. 09/17/2023 Active ferrous sulfate 325 mg (65 mg elemental iron) tablet Take 1 Tablet by mouth daily. 12/29/2023 01/23/20 Active hydrOXYzine pamoate (VISTARIL) 25 mg capsule Take 1 Capsule by mouth 3 times daily as needed for Itching. 01/04/2024 Active PNV no.153/FA/om3/d ward/epa/fish ( GUMMIES ORAL) BZ-Pzh-EI-Ome ga-3 ( Gummies/DHA & FA) 0.4-32.5 MG Chew Tab Take by mouth. Active buprenorphine-n aloxone (Suboxone) 2-0.[address] 1 FILM UNDER THE TONGUE 2 TIMES DAILY FOR 15 DAYS. 11/11/2023 Active valACYclovir (VALTREX) 500 mg tablet Take 1 Tablet by mouth daily for 30 days. Active levonorgestreL (PLAN B) 1.5 mg tablet Take 1 tablet (1.5 mg total) by mouth 1 (one) time for 1 dose. 1 tablet 06/11/2024 Active levonorgestreL (PLAN B) 1.5 mg tablet Take 1 tablet (1.5 mg total) by mouth 1 (one) time for 1 dose. 1 tablet 06/11/2024 Active Active Problems Problem Noted Date Diagnosed Date Hx of preeclampsia, prior , currently p regnant 05/25/2024 Overview (05/25/2024): Baseline HELLP labs ordered, all done and normal Taking asa History of 2 sections 05/25/2024 Overview (05/25/2024): X2 Records from 2017 C/S at [facility]: Pt aware [facility] will only do a repeat c/s, pt states understanding She declines tubal ligation at delivery. REPEAT c/section ángel on 03/23 8am, pt is aware to arrive at 6am, NPO after MN L & D ANM will call pt 1-2 days prior to surg for confirmation History of hemorrhage 05/25/2024 History of depression 05/25/2024 History of gestational hypertension 05/25/2024 Overview (05/25/2024): 2020 - pt was dx'd with gHTN IMPRESSION: 19 yr. old PPD # 10 Ghtn diagnosed in PP period PLAN: Asymptomatic, labs normal given her continued elevated BPs consider ghtn and needs daily treatment. Started patient on lab 100 BID to see how she does. D/W her si/sx of BP getting too low and BP getting high. D/W her usually in PP this is a temporary thing and we can usually get a patient off the BP meds by 6 weeks PP. She has apt next week so will have BP check at that time and call if any other issues or concerns. Doesn't meet criteria for pre-e. 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 Exaggerated stress response - seen by cardiology multiple times after first during which she had PIH and continued to have elevated BPs for months after , as well as elevated BPs in emergency settings. Per cards notes , possibly she has an exagerrated stress response, rather than true cHTN- conservatively can treat at [facility] in as we have elevated BPS in office < 20 weeks Baseline HELLP labs normal Pt taking daily asa Baseline (<20 weeks) CBC, AST, ALT, creatinine and P/C ratio. If P/C ratio > 0.3 check urine creatinine, if normal, send 24-hour urine collection for total protein Start ASA 162mg at 12 weeks until delivery If no medication required, delivery 38-39 weeks Single growth u/s at 32 weeks Start meds for SBP>140 or DBP> 90 BP goal SBP: <140 and DBP: <90 If on medication or other comorbidities: Serial growth u/s at 28 weeks Weekly NST at 32 weeks Twice weekly testing at 36 weeks Deliver 37-39 weeks Last Assessment & Plan: Cont baby asa 162 mg daily High-risk , second trimester 10/22/2023 Overview (03/26/2024): [place] [facility] [place] Pt with unknown LMP . AARTI 04-01-24 confirmed by dating [place] [facility] [place]2023 Ht 5'2 143 lbs 5 oz BMI <30 08-29-23 initial appt with RN . 09-18-23 gc/chlam/trich negative 09-18-23 pap LSIL 09-18-23 creatine 0.39 GFR 143 ALT 11 H&H 12.8 / 38.3 Platelets 304 Urine no growth Hep b negative Hep c nonreactive Rubella nonreactive Syphillis non -reactive Hiv nonreactive I do not see blood type and screen UDS , panorama , varicella 10-16-2023 AST 14 10-16-23 Antibody negative Nuchal 09-18-23 normal Med list: pnv gummies, asa, suboxone 2mg d/c 10-18-23 , zofran, miralax Last Assessment & Plan: Medical Director Of Hospice on glucose screen 3rd trimester Anxiety and depression 12/07/2019 Overview (03/26/2024): EPDS 5 Inbetween therapist at this time, reports anx/dep currently stable Hx depression 2017 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 Overview (03/26/2024): Last Assessment & Plan: No eccent outbreaks, begin suppression at 36 weeks or sooner prn Resolved Problems Problem Noted Date Diagnosed Date Resolved Date Hx of preeclampsia, prior pr egnancy, currently 10/22/2023 05/25/2024 Overview (03/26/2024): Baseline HELLP labs ordered, all done and normal Taking asa Immunizations Name Administration Dates Next Due Tdap Tetanus diptheria acell ular pertussis (Boostrix; Adacel) 7yo and older 01/09/2024 Surgical History Surgery Date Site/Laterality Comments SECTION 2017 PROCEDURE: HISTORICAL DELIVERY; COMMENT: x2 Medical History Medical History Date Comments Gestational HTN DX:Gestational H TN Anemia DX:Anemia Anxiety and depression 12/07/2019 DX:Anxiet y and depression Genital HSV DX:Genital HSV History of pre-eclampsia DX:Hist ory of pre-eclampsia Mild intermittent asthma, uncomplicated DX:Mild intermittent asthma, uncomplicated Chronic hypertension DX:Chronic hypertension Social History Tobacco Use Types Packs/Day Years Used Date Smoking Tobacco: Never Smokeless Tobacco: Never Alcohol Use Standard Drinks/Week Comments No 0 (1 standard drink = 0.6 oz pur e alcohol) Housing Instability Answer Date Recorde d Are you worried that in the next 2 months you may not have stable housing? Yes 08/04/2024 Food Access & Nutrition Answer Date Rec orded Do you have access to a vari ety of food including fruits and vegetables? Yes 08/04/2024 Access to Healthcare Answer Date Record ed Within the last 3 months, ho w many times did you visit the emergency department for your medical care? 0 08/04/2024 Health Literacy Answer Date Recorded How often do you need to hav e someone help you when you read instructions, pamphlets, or other written material from your doctor or pharmacy? Patient declined 08/04/2024 Caregiver: How often do you need to have someone help you when you read instructions, pamphlets, or other written material from your doctor or pharmacy? Not on file 025 Financial Risk Answer Date Recorded How hard is it for you to pa y for the very basics like food, housing, medical care, and air conditioning / heating? Not asked 08/04/2024 Transportation Answer Date Recorded Has the lack of transportati on kept you from meetings, work, or from getting things needed for daily living? No Has the lack of transportati on kept you from medical appointments or from getting medications? No 08/04/2024 Social Isolation Answer Date Recorded How often do you feel lonely or isolated from th ose around you? Never 08/04/2024 Food Risk Answer Date Recorded Within the past 12 months we worried whether our food would run out before we got money to buy more. Sometimes true 025 Within the past 12 months th e food we bought just didn't last and we didn't have money to get more. Never true 08/04/2024 Dependent Care Answer Date Recorded Do you need help finding or paying for care for your loved ones. For example, child neurologist or elderly care for an older adult? Unable to respond 08/04/2024 Education Answer Date Recorded Do you think completing more education or training, like finishing a GED, going to college, or learning a trade, would be helpful for you? Yes 08/04/2024 Employment and Income Answer Date Recor ded During the last four weeks, have you been actively looking for work? Unable to respond 08/04/2024 Living Situation Answer Date Recorded What is your living situation? 0 08/04/2024 Comments No Sex and Gender Information Value Date Recorded Sex Assigned at Not on file Legal Sex Female 5:43 PM EST Gender Identity Not on file Sexual Orientation Not on file Obstetrics History Para Term AB IAB SAB Ectopic Multiple Livin g Live Births 1 Date Outcome GA Total Labor Labor/2nd/3rd Weight Sex Type Anes PTL [place] A1 A5 Name Clin Last Filed Vital Signs Vital Sign Reading Time Taken Comments Blood Pressure 130/87 04/10/2024 3:24 PM EDT Pulse 107 04/10/2024 3:24 PM EDT Temperature - - Respiratory Rate - - Oxygen Saturation - - Inhaled Oxygen Concentration - - Weight 59.9 kg (132 lb) 04/10/2024 3:24 PM EDT Height 157.5 cm (5' 2 ) 02/06/2024 2:08 PM EDT Body Mass Index 24.14 02/06/2024 2:08 PM EDT Plan of Treatment Health Maintenance Due Date Last Done Comments Pneumococcal Vaccine: Pediatrics (0 to 5 Years) and At-Risk Patients (6 to 49 Years) (1 of 2 - PPSV23) 08/27/2000 07/02/2000, 05/02/2000 COVID-19 Vaccine (#1) 2004 Cervical Cancer Screening: Pap Smear 2020 Influenza Vaccine (#1) 2025 07/26/2006 Social Influencers of Health Screening 08/04/2025 08/04/2024 Depression Screening 09/09/2025 09/09/2024 Hypertension/CHF/CAD Annual BMP Blood Test 12/01/2025 12/01/2024 Cholesterol Screening (Lipid Panel) 12/26/2025 12/26/2020 DTaP,Tdap,and Td Vaccines (9 - Td or Tdap) 01/08/2034 01/09/2024, 04/05/2017, 11/23/2010, Additional history exists Hepatitis B Vaccines Completed 05/14/2001, 05/01/2000, 1999 HIB Vaccines Completed 12/25/2001 IPV Vaccines Completed 05/17/2003, 08/2000, 1999, Additional history exists MMR Vaccines Completed 05/17/2003, 05/02/2000 Hepatitis A Vaccines Completed 10/11/2011, 04/11/20 11 Varicella Vaccines Aged Out 03/30/2013, 1 1999, 05/02/2000 No longer eligible based on patient's age to complete this topic HPV Vaccines Completed 09/21/2014, 03/2014, 09/17/2013 Meningococcal ACWY Vaccine Completed 09/22/2015, HIV Screening Completed 12/01/2024 Hepatitis C Screening Completed 12/01/2024 Meningococcal B Vaccine Aged Out No l onger eligible based on patient's age to complete this topic RSV Immunization Patients Under 20 months Aged Out No longer eligible based on patient's age to complete this topic Insurance MEDICAID - [place] Care Teams Fitter Armament Relationship Specialty Start Date End Date Physician, No Pcp PCP - General 08/05/24
--- NOTE | 2025-01-08 10:15 | MHC.OFFVIS ---
Vital Signs 01/08/25 10:16 Height 5 ft 2 in Weight 136 lb 4 oz BMI 24.9 BP 112/72 Intake Visit Reasons: New Pt AUB Clinical Research Technician Required: No Information Interpreted: non-clinical & clinical Preventive Maintenance Engineer: Preventive Maintenance Engineer Present (Ashley) Accompanied by: Self / Same As Patient Allergies fluoxetine (From PROZAC) Allergy (Unknown, Verified 01/08/25 10:20) HIVES penicillin V Allergy (Unknown, Verified 01/08/25 10:20) hives ferrous sulfate Adverse Reaction (Verified 01/08/25 10:20) Stomach Upset Is last menstrual period known: Yes Last menstrual period: 12/16/24 HPI Comments Details: Presenting complaining of missed menses LMP was early November, heavy menstrual cycles associated with pelvic cramping and passage of blood clots, and would like to discuss different options of control. The patient is requesting STD screen [facility] Medical History Migraine with aura External hemorrhoids with complication Surgical History History of Family History Maternal Grandmother Colon cancer Social History Household Members: Children Housing: House Are you a primary director of health care marketing to a significant other at home: No Do you presently have visiting nurse or other home services: No Patient Tobacco Use Status: Never used Tobacco Second Hand Smoke Exposure: No service: No Current occupational status: unemployed Female Reproductive History Menstrual Date of last menstrual period: 12/16/24 control method: none Total pregnancies: 6 Full term: 3 Number of Living Children: 3 Ab induced: 1 Ab spontaneous: 2 Review of Systems Const All systems reviewed & are unremarkable except as noted in HPI and below Card Reports as per HPI Resp Reports as per HPI GI Reports as per HPI and Reports no additional complaints Reports as per HPI Physical Exam Vital Signs: Last Vital Signs BP 112/72 01/08/25 10:16 BMI result Body Mass Index 24.9 Const General: cooperative, healthy appearing and comfortable Chest Chest palpation & inspection: normal inspection of the chest and normal palpation of entire chest wall Breast/axilla inspection: normal inspection of the breasts and normal inspection of the axillae Breast/axilla palpation: normal palpation of the breasts, normal palpation of the axillae and no axillary lymphadenopathy Resp Effort & Inspection: normal respiratory effort Auscultation: clear to auscultation bilaterally Percussion: percussion normal Cardio Palpation: normal PMI Rate: regular rate Rhythm: regular rhythm Heart sounds: no murmurs and no rubs Peripheral pulses: Peripheral pulses 2+ throughout GI Inspection: Yes normal to inspection Palpation (GI): Soft to palpation, nontender, no guarding, not rigid and No hepatosplenomegaly present Percussion: Yes normal to percussion Auscultation: normal bowel sounds Rectal Exam - Female: deferred General: Yes bladder normal to palpation External Female Exam: No lesion Speculum Exam - Vagina: normal appearance of the vagina, normal palpation, normal vaginal discharge and not erythematous Speculum Exam - Cervix: normal appearance of the cervix and normal palpation Bimanual exam- vagina & uterus: normal bimanual exam, normal palpation, uterine size normal, bladder normal to palpation, consistency normal and normal palpation Bimanual Exam- Adnexa, other: normal adnexae, no masses and no tenderness Results AMB Test Urine AMB Test Urine Negative Last Edit by Leandra Sue CMA on 01/08/25 10:30 Results Reviewed Results Reviewed: Laboratory Last Values Tst Clinic Negative 01/08/25 10:29 Assessment & Plan Assessment & Plan (1) Well woman exam: Code(s): Z01.419 - Encounter for gynecological examination (general) (routine) without abnormal findings Category: Medical Plan: Pap smear done. Counseled the patient about the recommended dietary allowance of 1000 mg of Calcium & 600 IU of vitamin D. The patient was instructed to perform monthly self-breast exams and to schedule an annual exam in a year; All questions answered and the patient verbalized understanding. Instructed the patient to schedule annual exam in a year (2) Family planning: Code(s): Z30.09 - Encounter for other general counseling and advice on contraception Category: Social Hx Plan: Discussed with the patient the different options of control including control pills/Nuvaring, DMPA, different types of IUD ?s ( cu vs progesterone) , sterilization. All the pros, cons, risks and benefits of each were discussed with the patient. The patient decided to go ahead with Mirena IUD, so a more detailed discussion was carried on including mechanism of action, risks (infection, uterine perforation, failure with ectopic , septic AB, ovarian cyst and pelvic pain, increased breast cancer risk and others) benefits (efficient contraceptive method, others), GC/CG were taken and the patient was asked to call day one of next cycle for IUD insertion. (3) Abnormal uterine bleeding (AUB): Code(s): N93.9 - Abnormal uterine and vaginal bleeding, unspecified Category: Medical Plan: UPT done in the office was negative. Pap smear done, GC and chlamydia taken CBC, TSH, HCG, and pelvic ultrasound ordered. Discussed with the patient the different causes of abnormal bleeding including thyroid disorders, uterine and ovarian pathology, and other potential causes. Discussed with the patient the work up including CBC (to r/o anemia), TSH, pelvic Ultrasound. All questions answered and the patient verbalized understanding. Instructed the patient to schedule an appointment for an endometrial biopsy in 2 weeks. (4) Screening for STD (sexually transmitted disease): Code(s): Z11.3 - Encounter for screening for infections with a predominantly sexual mode of transmission Category: Medical Plan: STD screening tests done includes: BV panel for trichomonas, GC/CT will send patient for serology std screening for HIV, RPR, Hep b s Ag, HepC Ab. Instructions given the patient to schedule a follow-up appointment for repeat serology screen in 6 months for possible false negatives. Orders: Orders AMB HCG Urine Test 01/08/25 Z32.02 - Encounter for test, result negative TSH reflex Free T4 01/08/25 N93.9 - Abnormal uterine and vaginal bleeding, unspecified HCG Quantitative 01/08/25 N93.9 - Abnormal uterine and vaginal bleeding, unspecified Complete Blood Count no Diff 01/08/25 N93.9 - Abnormal uterine and vaginal bleeding, unspecified US pelvic and transvaginal 01/08/25 N93.9 - Abnormal uterine and vaginal bleeding, unspecified Hepatitis C Antibody 01/08/25 Z20.2 - Contact with and (suspected) exposure to infections with a predominantly sexual mode of transmission HIV Ab/Ag 01/08/25 Z20.2 - Contact with and (suspected) exposure to infections with a predominantly sexual mode of transmission Syphilis Screen 01/08/25 Z20.2 - Contact with and (suspected) exposure to infections with a predominantly sexual mode of transmission Pap Smear 01/08/25 N93.9 - Abnormal uterine and vaginal bleeding, unspecified Hepatitis B Surface Antigen 01/08/25 Z20.2 - Contact with and (suspected) exposure to infections with a predominantly sexual mode of transmission CT NG by PCR Vag/Cerv 01/08/25 N93.9 - Abnormal uterine and vaginal bleeding, unspecified Bacterial Vaginosis Panel 01/08/25 N93.9 - Abnormal uterine and vaginal bleeding, unspecified Coding Level of Care Code New Pt Level 4 (38166) Diagnoses Well woman exam Z01.419 Family planning Z30.09 Abnormal uterine bleeding (AUB) N93.9 Screening for STD (sexually transmitted disease) Z11.3
[2025-01-08 10:16] VITALS: BP 112/72; BMI 24.9
== END 2025-01-08 10:53 | disposition home or self-care (01) ==
LOC: HO.HWS 09:36
PROVIDERS: Visit Provider Obstetrics & Gynecology
DX: Z32.02 Encounter for pregnancy test, result negative (principal)

== ENCOUNTER 2025-01-08 09:35 | Outpatient (REF) | payer MEDICAID, SELFPAY ==
[2025-01-08 11:47] LABS: Hematocrit 32.3 % (37.0-47.0); Hemoglobin 9.6 g/dl (12.0-16.0); Mean Corpuscular HGB Conc 29.7 g/dl (31.0-35.0); Mean Corpuscular Hemoglobin 21.9 pg (27.0-33.0); Mean Corpuscular Volume 73.6 fL (80.0-98.0); NRBC Abs Auto 0.000 X10*3/uL (0.0-0.012); NRBC Pct Auto 0.0 /100WBC (0.0-0.2); Platelet Count 341 X10*3/uL (160-400); Red Blood Count 4.39 X10*6/uL (4.20-5.50); White Blood Count 5.6 X10*3/uL (4.8-10.8)
[2025-01-09 08:34] LABS: HBsAGNum1 0.32 S/CO (0.00-0.99); HIV Num 1 0.07 S/CO (0.00-0.99); Hepatitis B Surface Antigen Negative (Negative); ~HepC Num1 0.46 S/CO (0.00-0.79); ~Hepatitis C Antibody Nonreactive (Nonreactive)
[2025-01-09 09:15] LABS: Syphilis Screen Nonreactive (Nonreactive)
== END 2025-01-08 09:36 | disposition home or self-care (01) ==
LOC: HO.LAB 09:35
PROVIDERS: Visit Provider Obstetrics & Gynecology
DX: N93.9 Abnormal uterine and vaginal bleeding, unspecified (principal); Z20.2 Contact with and (suspected) exposure to infections with a predominantly sexual mode of transmission; Z32.02 Encounter for pregnancy test, result negative; Z30.09 Encounter for other general counseling and advice on contraception
CPT/HCPCS: 36415; 81025; 84443; 84702; 85027; 86780; 86803; 87340; 87389; 99202

== ENCOUNTER 2025-01-08 11:34 | Outpatient (REF) | payer MEDICAID, SELFPAY ==
[2025-01-08 15:04] LABS: Bacterial Vaginosis PCR POSITIVE (Negative); Candida Group PCR DETECTED (Not Detect); Candida glab krusei PCR NOT DETECTED (Not Detect); Trichomonas vaginalis PCR NOT DETECTED (Not Detect)
[2025-01-08 15:34] LABS: CT PCR NOT DETECTED (Not Detect.); NG PCR NOT DETECTED (Not Detect.)
== END 2025-01-08 11:35 | disposition home or self-care (01) ==
LOC: HO.LNP 11:34
PROVIDERS: Visit Provider Obstetrics & Gynecology
DX: N93.9 Abnormal uterine and vaginal bleeding, unspecified (principal)
CPT/HCPCS: 81515; 87491; 87591; 88175

== ENCOUNTER 2025-02-09 12:30 | Outpatient (RCR) | payer MEDICAID, SELFPAY ==
[2025-01-05 11:51] VITALS: BP 128/64; PULSE 74; RESP 16; TEMP 36.7; O2SAT 99
[2025-01-12 12:33] VITALS: BP 126/71; PULSE 88; RESP 16; TEMP 36.8; O2SAT 100
[2025-01-19 12:38] VITALS: BP 123/80; PULSE 69; RESP 16; TEMP 36.6; O2SAT 99
[2025-01-26 12:14] VITALS: BP 110/51; PULSE 87; RESP 16; TEMP 36.6; O2SAT 99
[2025-02-02 12:24] VITALS: BP 132/79; PULSE 78; RESP 16; TEMP 36.6; O2SAT 100
[2025-02-09 12:29] VITALS: BP 121/72; RESP 16; TEMP 37.3; O2SAT 98
[2025-02-09 12:53] LABS: Hematocrit 36.6 % (37.0-47.0); Hemoglobin 11.5 g/dl (12.0-16.0); Mean Corpuscular HGB Conc 31.4 g/dl (31.0-35.0); Mean Corpuscular Hemoglobin 25.1 pg (27.0-33.0); Mean Corpuscular Volume 79.9 fL (80.0-98.0); NRBC Abs Auto 0.000 X10*3/uL (0.0-0.012); NRBC Pct Auto 0.0 /100WBC (0.0-0.2); Platelet Count 263 X10*3/uL (160-400); Red Blood Count 4.58 X10*6/uL (4.20-5.50); White Blood Count 3.4 X10*3/uL (4.8-10.8)
[2025-02-09 13:25] LABS: Ferritin 138 ng/mL (10-122)
== END 2025-02-09 13:10 | disposition home or self-care (01) ==
LOC: HO.INF 12:30
PROVIDERS: Visit Provider Nurse Practitioner Family
DX: D50.9 Iron deficiency anemia, unspecified (principal)
CPT/HCPCS: 36415; 82728; 85027; 96365; 96374; J1756

== ENCOUNTER 2025-03-29 13:46 | Outpatient (REF) | payer MEDICAID, SELFPAY ==
--- OUTSIDE RECORDS SUMMARY | 2025-03-29 14:00 | XMS_ITS | Encounter Summary ---
Author Organization [employer] Address 75 [facility] 7t [place] [address] Care Team Providers Care Underground Supervisor Name Role Phone Unavailable Primary Care Provider Unavailabl e Reason for Visit * Reason Comments OBAT Encounter Details Date Type Department Care Team (Latest Contact Info) Description 03/29/2025 2:00 PM EDT Office Visit [facility] [address] [place], [place] [phone] Blake Enciso MD [address] [place], [place] [phone] Opioid dependence, uncomplicated (CMS/HCC) (Primary Dx) Social History Tobacco Use Types Packs/Day Years Used Date Smoking Tobacco: Never Passive Smoke Exposure: Never Smokeless Tobacco: Never Alcohol Use Standard Drinks/Week Comments Never 0 (1 standard drink = 0.6 oz pur e alcohol) Depression Answer Date Recorded Patient Health Questionnaire-9 Score 2 02/10/2025 Patient Health Questionnaire-9 Score 2 02/10/2025 Last PHQ-9: Questionnaire Data Not on file 0 02/10/2025 Housing Stability Answer Date Recorded What is your housing situation today? I have sanket bar 09/04/[address] you li ve. Do you have problems with any of the following? None of the above 09/04/2023 Food Insecurity Answer Date Recorded Within the past 12 months, y ou worried that your food would run out before you got money to buy more: Sometimes True 2023 Within the past 12 months,th e food you bought just didn't last and you didn't have enough money to get more: Sometimes True 03/23/2024 Transportation Answer Date Recorded In the past 12 months, has l ack of transportation kept you from medical appts, meetings, work or from getting things needed for daily living? No 03/23/2024 Utilities Answer Date Recorded In the past 12 months, has t he electric, gas, oil or water company threatened to shut off services in your home? No 09/04/2023 Depression Answer Date Recorded Patient Health Questionnaire-2 Score 1 02/10/2025 Internet Access Answer Date Recorded Internet Access Q1 Yes 03/23/2024 Internet Access Q2 Not on file 03/23/2024 Comments Unknown Sex and Gender Information Value Date Recorded Sex Assigned at Female 04/30/2022 10:15 AM EDT Legal Sex Female 10:15 AM EDT Gender Identity Female 04/30/2022 10:15 AM EDT Sexual Orientation Straight 04/30/2022 10 :15 AM EDT documented as of this encounter Progress Notes * Blake Enciso MD - 03/29/2025 2:00 PM EDT Subjective Patient ID: Abigail Camejo is a 24 y.o. female. HPI Abigail seen today for follow up for opioid use disorder. Induction date: 04/04/2023. Abigail has been in the program for 1 year, 11 months. Dose: 24/6 mg on 8 week schedule. First dose of Sublocade is today, 03/29/2025. LFTs: done 12/01/2024. [employer] reviewed. UTOX: Not requested today Marya has been using four 8/2 mg strips daily instead of the 3 prescribed. Last week she declined switching to methadone but agreed to try Sublocade. She is here today for her first dose. She regained custody of her children from [facility]. The Imitrex I prescribed has been helping her migraines, and she is requesting a refill. States using as directed. Mother has history of migraines. Receiving IV iron infusions for iron deficiency anemia. She had a daughter named Neil on 03/23/2024. S [facility] placed her 3 children 03/2024. She states that she was at home with her children, and her 4 yo daughter's father was visiting. Also has 6 yo son. She was not aware of his arrest warrant, and when the police came and asked if he was there, she said he wasn't. They gained entry and arrested him. She states that she was unaware that they took out a warrant for her after the incident, and 3 dayslater took the kids to stay with relatives in [place]. She was arrested there, spent 30 days in senior care before being returned to [place] yesterday where she posted bail. Children are still in [facility] custody. She feels depressed, no SI. Has individual therapy with Eliseo, and was seeing Ian ([facility] psych specialist, before he left). She prefers Suboxone tablets because strips under her tongue cause burning sensation. Taking MiraLax for constipation, has been helping. Has 4 yo and 8 month old daughters and 7 yo son She moved to [place], still wants to use [facility] [address] in [place]. Non smoker; vapes. Taking Suboxone as prescribed for opioid dependence with no adverse effects. Denies cravings, w/d symptoms or illicit substance use. Has Narcan. The following portions of the chart were reviewed this encounter and updated as appropriate: Review of Systems Constitutional: Negative for fever. Respiratory: Negative for shortness of breath. Cardiovascular: Negative for chest pain. Gastrointestinal: Negative for abdominal pain. Skin: Negative for rash. Neurological: Negative for headaches. Objective Physical Exam Vitals and nursing note reviewed. Constitutional: Appearance: Normal appearance. HENT: Head: Normocephalic and atraumatic. Nose: Nose normal. Eyes: Conjunctiva/sclera: Conjunctivae normal. Pupils: Pupils are equal, round, and reactive to light. Pulmonary: Effort: Pulmonary effort is normal. Skin: General: Skin is warm and dry. Neurological: Mental Status: She is alert. Gait: Gait is intact. Psychiatric: Mood and Affect: Mood and affect normal. Behavior: Behavior normal. Procedures Assessment/Plan Diagnoses and all orders for this visit: Opioid dependence, uncomplicated ([facility]) Recovery support, harm reduction (including Narcan) and behavioral health attendance reviewed. Receiving first dose of Sublocade 300 mg subcu today. Has Narcan. Lab test were drawn today. - Syphilis Screen; Future - HIV-1/2 Antigen and Antibodies, Fourth Generation, with Reflexes; Future - Hepatitis C Antibody with Reflex to HCV, RNA, Quantitative, Real-Time PCR; Future - Chlamydia/N. Gonorrhoeae RNA, TMA, Urogenitial; Future * Slime Deluna RN - 03/29/2025 2:00 PM EDT Sublocade reviewed. Signed the consent form. Pt verbalized understanding. Sublocade 100 mg given SQback of right arm. Pt tolerated injection, no adverse reactions noted. Advised pt to call RN with any questions or concerns. documented in this encounter Plan of Treatment Upcoming Encounters Date Type Department Care Team (Late st Contact Info) Description 04/09/2025 10:00 AM EDT Office Visit [facility]INE [address] [place] [phone] Ivet Nelson MD [address] [place] [phone] 05/24/2025 1:45 PM EST Office Visit [facility] [address] [place] [phone] Blake Enciso MD [address] [place] [address] Scheduled Orders Name Type Priority Associated Diagnoses Orde r Schedule Syphilis Screen Lab Routine Opioid dependence, uncomplicated (CMS/HCC) Expected: 03/29/2025 (Approximate), Expires: 03/29/2026 HIV-1/2 Antigen and Antibodies, Fourth Generation, with Reflexes Lab Routine Opioid dependence, uncomplicated (CMS/HCC) Expected: 03/29/2025 (Approximate), Expires: 03/29/2026 Hepatitis C Antibody with Reflex to HCV, RNA, Quantitative, Real-Time PCR Lab Routine Opioid dependence, uncomplicated (CMS/HCC) Expected: 03/29/2025 (Approximate), Expires: 03/29/2026 Chlamydia/N. Gonorrhoeae RNA, TMA, Urogenitial Microbiology Routine Opioid dependence, uncomplicated (CMS/HCC) Expected: 03/29/2025 (Approximate), Expires: 03/29/2026 documented as of this encounter Visit Diagnoses Diagnosis Opioid dependence, uncomplicated (CMS/HCC) (HCC)- Primary documented in this encounter Administered Medications Inactive Administered Medications - up to 3 most recent administrations Medication Order MAR Action Action Date Dose Rate Site buprenorphine ER (Sublocade) 300 mg/1.5mL injection 1 each 1 each, Subcutaneous, Over 1 month, First dose on Sat03/29/25 at 1445, For 1 dose, For abdominal subcutaneous injection only Remove Sublocade from the fridge at least 15 minutes prior to administration. Discard if left at room temperature for longer than 7 days. Do not open the foil pouch until patient arrives. See package insert for specific administration instructions. Do not administer intravenously or intramuscularly.Indications :Opioid dependence, uncomplicated (CMS/HCC) (HCC) Given 03/29/2025 2:45 PM EDT 1 each Right Upper Arm (Back) documented in this encounter Additional Health Concerns Assessment Noted Time PHQ-9 Depression Total Score: 2 02/11/20 25 3:28 PM EDT documented as of this encounter
--- OUTSIDE RECORDS SUMMARY | 2025-03-29 15:23 | XMS_ITS | Encounter Summary ---
Author Organization [employer] Address [address] [facility] [address] 7t [place] [address] Care Team Providers Care Transport Technician Name Role Phone Unavailable Primary Care Provider Unavailabl e Encounter Details Date Type Department Care Team (Late st Contact Info) Description 11/26/2023 Orders Only [facility] [address] [place], [place] [phone] Blake Enciso MD [address] [place], [place] [phone] Social History Tobacco Use Types Packs/Day Years [...] t he electric, gas, oil or water Exclusively.in threatened to shut off services in your [...] Description 04/09/2025 10:00 AM EDT Office Visit [facility] MEDICINE [address] [place] [address] [phone] Ivet Nelson MD [address] [place] [phone] 05/24/2025 1:45 PM EST Office Visit [facility] MED[facility]INE [address] [place] [phone] Blake Enciso MD [address] [place] [phone] documented as of this encounter Visit Diagnoses Not on filedocumented in this encounter Additional Health Concerns Assessment Noted Time PHQ-9 Depression Total Score: 11 023 11:56 AM EDT documented as of this encounter
--- OUTSIDE RECORDS SUMMARY | 2025-03-29 15:24 | XMS_ITS | Encounter Summary ---
Author Organization [employer] Address [address] [facility] [address] 7t [place] [address] Care Team Providers Care Canine Deputy Name Role Phone Unavailable Primary Care Provider Unavailabl e Encounter Details Date Type Department Care Team ([facility] st Contact Info) Description 07/21/2024 Orders Only [facility] WALK[facility] [address] [place], [place] [phone] Blake Enciso MD [address] [place] [address] Social History Tobacco Use Types Packs/Day Years Used Date Smoking Tobacco: Never Passive Smoke Exposure: Never Smokeless Tobacco: Never Alcohol Use Standard Drinks/Week Comments Never 0 (1 standard drink = 0.6 oz pur e alcohol) Depression Answer Date Recorded Patient Health Questionnaire-9 Score 15 06/12/2024 Patient Health Questionnaire-9 Score 15 06/12/2024 Last PHQ-9: Questionnaire Data Not on file 1 08/13/2023 Housing Stability Answer Date Recorded What is [...] Answer Date Recorded Patient Health Questionnaire-2 Score 3 06/12/2024 Internet Access Answer Date Recorded Internet Access [...] Description 04/09/2025 10:00 AM EDT Office Visit [facility] MED[facility] [address] [place] [phone] Ivet Nelson MD [address] [place] [phone] 05/24/2025 1:45 PM EST Office Visit [facility] [address] [place] [phone] Blake Enciso MD [address] [place] [address] documented as of this encounter Visit Diagnoses Not on filedocumented in this encounter Additional Health Concerns Assessment Noted Time PHQ-9 Depression Total Score: 15 024 8:21 AM EST documented as of this encounter
--- OUTSIDE RECORDS SUMMARY | 2025-03-29 15:24 | XMS_ITS | Encounter Summary ---
Author Organization [employer] Address 75 [facility] 7t [place] [address] Care Team Providers Care Master Baker Name Role Phone Unavailable Primary Care Provider Unavailabl e Reason for Visit * Reason Comments Med Refill Encounter Details Date Type Department Care Team ([facility] st Contact Info) Description 06/19/2024 Refill [facility] MED[facility]INE [address] [place] [address] Blake Enciso MD [address] [place], [place] [phone] Opioid type dependence, continuous (CMS/HCC) Social History Tobacco Use Types Packs/Day Years [...] Description 04/09/2025 10:00 AM EDT Office Visit [facility] MEDICINE [address] [place] [phone] Ivet Nelson MD [address] [place] [phone] 05/24/2025 1:45 PM EST Office Visit [facility] MED[facility] [address] [place] [phone] Blake Enciso MD [address] [place] [phone] documented as of this encounter Visit Diagnoses Diagnosis Opioid type dependence, continuous (CMS/HCC) (HCC) Opioid type dependence, continuous documented in this encounter Additional Health Concerns Assessment Noted Time PHQ-9 Depression Total Score: 15 024 8:21 AM EST documented as of this encounter
--- OUTSIDE RECORDS SUMMARY | 2025-03-29 15:24 | XMS_ITS | Encounter Summary ---
Author Organization [employer] Address [address] [facility] 7t [place] [address] Care Team Providers Care Public Relations Director Name Role Phone Unavailable Primary Care Provider Unavailabl e Reason for Visit * Reason Onset Date Comments Med Refill 11/02/2022 Encounter Details Date Type Department Care Team ([facility] st Contact Info) Description 11/02/2022 Telephone [facility] [address] [place] [address] Hanna Mills MD [address] [place] [address] Med Refill Social History Tobacco Use Types Packs/Day Years Used Date Smoking Tobacco: Never Passive Smoke Exposure: Never Smokeless Tobacco: Never Alcohol Use Standard Drinks/Week Comments Never 0 (1 standard drink = 0.6 oz pur e alcohol) PHQ-2 Answer Date Recorded Patient Health Questionnaire-2 Score 2 07/23/2022 Depression Answer Date Recorded Patient Health Questionnaire-9 Score 5 07/23/2022 Comments Unknown Sex and Gender Information Value Date Recorded Sex Assigned at Female 04/30/2022 10:15 AM EDT Legal Sex Female 10:15 AM EDT Gender Identity Female 04/30/2022 10:15 AM EDT Sexual Orientation Straight 04/30/2022 10 :15 AM EDT COVID-19 Exposure Response Date Recorded In the last 10 days, have yo u been in contact with someone who was confirmed or suspected to have Coronavirus/COVID-19? No / Unsure 10/24/2022 9:35 AM EDT documented as of this encounter Miscellaneous Notes * Telephone Encounter - Poornima Rivera - 11/02/2022 9:01 AM EDT Tc from pt requesting med refill on oxyCODONE (Roxicodone) 5 MG immediate release tablet Please sent to [facility][id number] - [place], [place] - [phone] [facility] documented in this encounter Plan of Treatment Upcoming Encounters Date Type Department Care Team (Late st Contact Info) Description 04/09/2025 10:00 AM EDT Office Visit [facility] [address] [place] [phone] Ivet Nelson MD [address] [place] [address] [phone] 05/24/2025 1:45 PM EST Office Visit [address] [phone] Blake Enciso MD [address] [place] [address] [phone] documented as of this encounter Visit Diagnoses Not on filedocumented in this encounter Additional Health Concerns Assessment Noted Time PHQ-9 Depression Total Score: 5 07/23/19 23 3:04 PM EST documented as of this encounter
--- OUTSIDE RECORDS SUMMARY | 2025-03-29 15:24 | XMS_ITS | Encounter Summary ---
Author Organization [employer] Address 75 [facility] 7t [place] [address] Care Team Providers Care Millstone Cleaner Name Role Phone Unavailable Primary Care Provider Unavailabl e Reason for Visit * Reason Onset Date Comments Med Refill 03/29/2025 Encounter Details Date Type Department Care Team (Late st Contact Info) Description 03/29/2025 Refill [facility] [address] [place] [address] Slime Deluna RN Opioid dependence, uncomplicated ([facility]) Social History Tobacco Use Types Packs/Day Years [...] Description 04/09/2025 10:00 AM EDT Office Visit [facility] [address] [place] [address] [phone] Ivet Nelson MD [address] [place] [address] [phone] 05/24/2025 1:45 PM EST Office Visit [facility] [address] [place] [address] [phone] Blake Enciso MD [address] [place] [address] [phone] documented as of this encounter Visit Diagnoses Diagnosis Opioid dependence, uncomplicated (CMS/HCC) (HCC) documented in this encounter Additional Health Concerns Assessment Noted Time PHQ-9 Depression Total Score: 2 02/11/20 25 3:28 PM EDT documented as of this encounter
--- OUTSIDE RECORDS SUMMARY | 2025-03-29 15:24 | XMS_ITS | Encounter Summary ---
Author Organization [employer] Address 75 [facility] 7t [place] [address] Care Team Providers Care Burr Grinder Name Role Phone Unavailable Primary Care Provider Unavailabl e Reason for Visit * Reason Onset Date Comments Med Refill 06/21/2024 Encounter Details Date Type Department Care Team ([facility] st Contact Info) Description 06/21/2024 Refill [facility] [address] [place], [place] [phone] Hanna Mills MD [address] [place], [place] [phone] Social History Tobacco Use Types Packs/Day Years [...] Description 04/09/2025 10:00 AM EDT Office Visit [facility] [address] [place] [phone] Ivet Nelson MD [address] [place] [address] 05/24/2025 1:45 PM EST Office Visit [facility] [address] [place] [phone] Blake Enciso MD [address] [place] [address] [phone] documented as of this encounter Visit Diagnoses Not on filedocumented in this encounter Additional Health Concerns Assessment Noted Time PHQ-9 Depression Total Score: 15 024 8:21 AM EST documented as of this encounter
--- OUTSIDE RECORDS SUMMARY | 2025-03-29 15:24 | XMS_ITS | Encounter Summary ---
Author Organization [employer] Address [address] [facility] [address] 7t [place] [address] Care Team Providers Care Circulation Analyst Name Role Phone Unavailable Primary Care Provider Unavailabl e Encounter Details Date Type Department Care Team ([facility] st Contact Info) Description 06/15/2024 Orders Only [facility] 230 [place] [address] Radha Catalan Social History Tobacco Use Types Packs/Day Years [...] Upcoming Encounters Date Type Department Care Team ([facility] st Contact Info) Description 04/09/2025 10:00 AM EDT Office Visit [facility] MED[facility]INE [address] [place] [phone] Ivet Nelson MD [address] [place] [phone] 05/24/2025 1:45 PM EST Office Visit [facility] [address] [place] [address] [phone] Blake Enciso MD 230 [place], [place] [phone] documented as of this encounter Procedures Procedure Name Priority Date/Time Associated Diagnosis Comments PAP/HPV Routine 09/18/2023 12:00 AM EDT documented in this encounter Results * (ABNORMAL) HM PAP/HPV (09/18/2023 12:00 AM EDT) Pap Smear 4. LSIL(A) 1. NILM us Historical Provider HEALTH MAINTENANCE Edited Result - Final documented in this encounter Visit Diagnoses Not on filedocumented in this encounter Additional Health Concerns Assessment Noted Time PHQ-9 Depression Total Score: 15 024 8:21 AM EST documented as of this encounter
--- OUTSIDE RECORDS SUMMARY | 2025-03-29 15:24 | XMS_ITS | Encounter Summary ---
Author Organization [employer] Address [address] [facility] [address] 7t [place] [address] Care Team Providers Care Geology Professor Name Role Phone Unavailable Primary Care Provider Unavailabl e Encounter Details Date Type Department Care Team (Late st Contact Info) Description 08/10/2024 Orders Only [facility] [address] [place] [address] Sliem Deluna RN Opioid dependence, uncomplicated (CMS/HCC) Social History Tobacco Use Types Packs/Day [...] Description 04/09/2025 10:00 AM EDT Office Visit [facility] [address] [place] [address] [phone] Ivet Nelson MD [address] [place] [phone] 05/24/2025 1:45 PM EST Office Visit [facility] [address] [place] [phone] Blake Enciso MD [address] [place] [address] [phone] documented as of this encounter Visit Diagnoses Diagnosis Opioid dependence, uncomplicated (CMS/HCC) (HCC) documented in this encounter Additional Health Concerns Assessment Noted Time PHQ-9 Depression Total Score: 15 024 8:21 AM EST documented as of this encounter
--- OUTSIDE RECORDS SUMMARY | 2025-03-29 15:24 | XMS_ITS | Encounter Summary ---
Author Organization [employer] Address 75 [facility] 7t [place] [address] Care Team Providers Care Data Acquisition Technician Name Role Phone Unavailable Primary Care Provider Unavailabl e Encounter Details Date Type Department Care Team ([facility] Contact Info) Description 01/11/2023 Abstract [facility] [address] [place] [address] [phone] Hanna Mills MD [address] [place] [address] [phone] Social History Tobacco Use Types Packs/Day Years Used Date Smoking Tobacco: Never Passive Smoke Exposure: Never Smokeless Tobacco: Never Alcohol Use Standard Drinks/Week Comments Never 0 (1 standard drink = 0.6 oz pur e alcohol) PHQ-2 Answer Date Recorded Patient Health Questionnaire-2 Score 2 07/23/2022 Depression Answer Date Recorded Patient Health Questionnaire-9 Score 5 07/23/2022 Comments No Sex and Gender Information Value [...] suspected to have Coronavirus/COVID-19? No / Unsure 12/27/2022 8:55 AM EDT documented as of this encounter Plan of Treatment Upcoming Encounters Date Type Department Care Team ([facility] Contact Info) Description 04/09/2025 10:00 AM EDT Office Visit [facility] [address] [place] [address] [phone] Ivet Nelson MD 230 [place] [address] 05/24/2025 1:45 PM EST Office Visit [facility] 230 [place], [place] [phone] Blake Enciso MD 230 [place] [address] documented as of this encounter Procedures Procedure Name Priority Date/Time Associated Diagnosis Comments PAP/HPV Routine 11/01/2020 documented in this encounter Results * Pap Smear (11/01/2020) Pap Negative for intraephithelial lesion or malignancy Negative for intraephithelial lesion or malignancy, Other 11/01/2020 [facility] External Provider HEALTH MAINTENANCE Final Result documented in this encounter Visit Diagnoses Not on filedocumented in this encounter Additional Health Concerns Assessment Noted Time PHQ-9 Depression Total Score: 5 07/23/19 23 3:04 PM EST documented as of this encounter
--- OUTSIDE RECORDS SUMMARY | 2025-03-29 15:24 | XMS_ITS | Encounter Summary ---
Author Organization [employer] Address [address] [facility] 7t [place] [address] Care Team Providers Care Coroner Name Role Phone Unavailable Primary Care Provider Unavailabl e Encounter Details Date Type Department Care Team ([facility] Contact Info) Description 09/25/2022 Orders Only [facility] MEDICINE [address] [place] [phone] Hanna Mills MD [address] [place] [phone] 8 weeks gestation of (Primary Dx) Social History Tobacco Use Types [...] suspected to have Coronavirus/COVID-19? No / Unsure 09/20/2022 2:44 PM EDT documented as of this encounter Plan of Treatment Upcoming Encounters Date Type Department Care Team ([facility] Contact Info) Description 04/09/2025 10:00 AM EDT Office Visit [facility] MEDICINE [address] [place] [phone] Ivet Nelson MD [address] [place] [phone] 05/24/2025 1:45 PM EST Office Visit [facility] MEDICINE [address] [place] [phone] Blake Enciso MD [address] [place] [phone] documented as of this encounter Visit Diagnoses Diagnosis 8 weeks gestation of - Primary documented in this encounter Additional Health Concerns Assessment Noted Time PHQ-9 Depression Total Score: 5 07/23/19 23 3:04 PM EST documented as of this encounter
--- OUTSIDE RECORDS SUMMARY | 2025-03-29 15:24 | XMS_ITS | Encounter Summary ---
Author Organization [employer] Address [address] [place] [address] Care Team Providers Care Client Services Analyst Name Role Phone Unavailable Primary Care Provider Unavailabl e Encounter Details Date Type Department Care Team (Latest Contact Info) Description 03/29/2025 Travel Social History Tobacco Use Types Packs/Day Years [...] Description 04/09/2025 10:00 AM EDT Office Visit [facility] MEDICINE [address] [place] [phone] Ivet Nelson MD [address] [place] [phone] 05/24/2025 1:45 PM EST Office Visit [address] [phone] Blake Enciso MD [address] [place] [phone] documented as of this encounter Visit Diagnoses Not on filedocumented in this encounter Additional Health Concerns Assessment Noted Time PHQ-9 Depression Total Score: 2 02/11/20 25 3:28 PM EDT documented as of this encounter
--- OUTSIDE RECORDS SUMMARY | 2025-03-29 15:24 | XMS_ITS | Encounter Summary ---
Author Organization [employer] Address [address] [facility] [place] [address] Care Team Providers Care Auto Body Shop Manager Name Role Phone Unavailable Primary Care Provider Unavailabl e Encounter Details Date Type Department Care Team (Late st Contact Info) Description 08/10/2024 Orders Only [facility] MEDICINE [address] [place] [address] Slime Deluna RN Opioid dependence, uncomplicated (CMS/HCC) Social [...] Description 04/09/2025 10:00 AM EDT Office Visit [facility] MEDICINE [address] [place] [phone] Ivet Nelson MD [address] [place] [phone] 05/24/2025 1:45 PM EST Office Visit [facility] MEDICINE [address] [place] [phone] Blake Enciso MD [address] [place] [phone] Scheduled Orders Name Type Priority Associated Diagnoses Orde r Schedule Hepatitis C Antibody with Reflex to HCV, RNA, Quantitative, Real-Time PCR Lab Routine Opioid dependence, uncomplicated (CMS/HCC) Expected: 08/10/2024 (Approximate), Expires: 08/10/2025 HIV-1/2 Antigen and Antibodies, Fourth Generation, with Reflexes Lab Routine Opioid dependence, uncomplicated (CMS/HCC) Expected: 08/10/2024 (Approximate), Expires: 08/10/2025 Syphilis Screen Lab Routine Opioid dependence, uncomplicated (CMS/HCC) Expected: 08/10/2024 (Approximate), Expires: 08/10/2025 T-SPOT .TB Lab Routine Opioid dependence, uncomplicated (CMS/HCC) Expected: 08/10/2024 (Approximate), Expires: 08/10/2025 Hepatitis A Antibody, Total Lab Routine Opioid dependence, uncomplicated (CMS/HCC) Expected: 08/10/2024 (Approximate), Expires: 08/10/2025 documented as of this encounter Visit Diagnoses Diagnosis Opioid dependence, uncomplicated (CMS/HCC) (HCC) documented in this encounter Additional Health Concerns Assessment Noted Time PHQ-9 Depression Total Score: 15 024 8:21 AM EST documented as of this encounter
--- OUTSIDE RECORDS SUMMARY | 2025-03-29 15:24 | XMS_ITS | Clinical Summary ---
Author Organization [facility] Address [address] [place] [address] Care Team Providers Care Electric Razor Assembler Name Role Phone Physician, No Pcp Primary Care Provider Unavaila ble Allergies Active Allergy Reactions Criticality Noted Date Comments Fluoxetine Hives 10/22/2023 Hives/Urticaria Penicillins Hives 12/07/2019 Hives/Urticaria Medications aspirin 81 mg EC tablet Take 2 Tablets by mouth daily. 11/28/2023 Active blood pressure test kit (BLOOD PRESSURE MONITOR [facility]) USE TO CHECK BLOOD PRESSURE EVERY DAY NEEDED 10/01/2023 Active docusate sodium (COLACE) 100 mg capsule TAKE 1 OR 2 CAPSULES BY MOUTH AT BEDTIME NEEDED FOR CONSTIPATION. 09/17/2023 Active hydrOXYzine pamoate (VISTARIL) 25 mg capsule Take 1 Capsule by mouth 3 times daily as needed for Itching. 01/04/2024 Active PNV no.153/FA/om3/d ward/epa/fish ( GUMMIES ORAL) [id number] ga-3 ( Gummies/DHA & FA) 0.4-32.5 MG [...] (05/25/2024): X2 Records from 2017 C/S at [facility]: Pt aware [facility] will only do a repeat c/s, pt states understanding She declines tubal ligation at delivery. REPEAT c/section ángel on 03/23 8am, pt is aware to arrive at 6am, NPO after MN L & D [facility] will call pt 1-2 days prior to surg for confirmation History of hemorrhage 05/25/2024 History of depression 05/25/2024 History of gestational hypertension 05/25/2024 Overview (05/25/2024): 2019 - pt was dx'd with gHTN IMPRESSION: [...] LAMB, DO GBS (group B Streptococcus c arrier), +RV culture, currently 03/26/2024 Suboxone maintenance treatme nt complicating , antepartum (CMS/HCC V24, CMS/HCC V28) 03/26/2024 Anemia affecting in third trimester Low grade squamous intraepit h lesion on cytologic smear cervix (lgsil) 11/06/2023 Overview (03/26/2024): 08/2023 PAP - @ [facility] [place], [place]- repeat PAP Abnormal genetic test 10/22/2023 Overview (03/26/2024): 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 Exaggerated stress response - seen by cardiology multiple times after first during which she had PIH and continued to have elevated BPs for months after , as well as elevated BPs in emergency settings. Per cards notes , possibly she has an exagerrated stress response, rather than true cHTN- conservatively can treat at [facility] in as we have elevated BPS [...] second trimester 10/22/2023 Overview (03/26/2024): Transfer from [facility]- records transcribed Pt with unknown LMP . AARTI 04-01-24 confirmed by dating u/s at [facility] 08/23/2023 Ht 5'2 143 lbs 5 oz [...] , zofran, miralax Last Assessment & Plan: Ammonia Box Tender on glucose screen 3rd trimester Anxiety and [...] all done and normal Taking asa Immunizations Immunization Administration Dates Next Due Tdap Tetanus diptheria [...] for your loved ones. For example, child care teacher or elderly care for an older adult? [...] Date Recorded What is your living situation? Unrecognized valu e 08/04/2024 Comments No Sex and Gender Information [...] Patients (6 to 49 Years) (1 of 1 - PPSV23, PCV20, or PCV21) 2005 07/02/2000, 05/02/2000 Cervical Cancer Screening: Pap Smear 2020 COVID-19 Vaccine ( - season) 2025 Influenza Vaccine (#1) 2025 07/26/2006 Social Influencers of Health Screening 08/04/2025 08/04/2024 Hypertension/CHF/CAD Annual BMP Blood Test 12/01/2025 12/01/2024 Cholesterol Screening (Lipid Panel) 12/26/2025 12/26/2020 DTaP,Tdap,and Td Vaccines (9 - Td or Tdap) 01/08/2034 01/09/2024, 04/05/2017, 11/23/2010, Additional history exists RSV Immunization Adult Patients (1 - 1-dose 75+ series) 2074 Hepatitis B Vaccines Completed 05/14/2001, 05/01/2000, 1999 HIB Vaccines Completed 12/25/2001 IPV Vaccines Completed 05/17/2003, 08/2000, 1999, Additional history exists MMR Vaccines Completed 05/17/2003, 05/02/2000 Hepatitis A Vaccines Completed 10/11/2011, 04/11/20 11 Varicella Vaccines Completed 03/30/2013, 1 1999, 05/02/2000 HPV Vaccines Completed 09/21/2014, 03/2014, 09/17/2013 Meningococcal ACWY Vaccine Completed 09/22/2015, Depression Screening Completed 08/04/2024 HIV Screening Completed 12/01/2024 Hepatitis C Screening Completed 12/01/2024 Meningococcal B Vaccine Aged Out No l onger eligible based on patient's age to complete this topic RSV Immunization Patients Under 20 months Aged Out No longer eligible based on patient's age to complete this topic Insurance MEDICAID - [place] Care Teams Electric Razor Assembler Relationship Specialty Start Date End Date Physician, No Pcp PCP - General 08/05/24
--- OUTSIDE RECORDS SUMMARY | 2025-03-29 15:24 | XMS_ITS | Encounter Summary ---
Author Organization [employer] Address [address] [facility] [address] [place] [address] Care Team Providers Care Tool Hardener Name Role Phone Unavailable Primary Care Provider Unavailabl e Reason for Visit * Reason Onset Date Comments Med Change Request Prior Authorization 06/17/2023 Encounter Details Date Type Department Care Team ([facility] st Contact Info) Description 06/17/2023 Refill [facility] MEDICINE [address] [place], [place] [phone] Hanna Mills MD [address] [place], [place] [phone] Social History Tobacco Use Types Packs/Day Years Used Date Smoking Tobacco: Never Passive Smoke Exposure: Never Smokeless Tobacco: Never Alcohol Use Standard Drinks/Week Comments Never 0 (1 standard drink = 0.6 oz pur e alcohol) Depression Answer Date Recorded Patient Health Questionnaire-9 Score 11 04/09/2023 Housing Stability Answer Date Recorded What is your housing situation today? I have sanket bar 04/16/[address] you li ve. Do you have problems with any of the following? None of the above 04/16/2023 Food Insecurity Answer Date Recorded Within the past 12 months, y ou worried that your food would run out before you got money to buy more: Never True 04/16/2023 Within the past 12 months,th e food you bought just didn't last and you didn't have enough money to get more: Never True Transportation Answer Date Recorded In the past 12 months, has l ack of transportation kept you from medical appts, meetings, work or from getting things needed for daily living? No 04/16/2023 Utilities Answer Date Recorded In the past 12 months, has t he electric, gas, oil or water company threatened to shut off services in your home? No 04/16/2023 Depression Answer Date Recorded Patient Health Questionnaire-2 Score 5 04/09/2023 Comments Yes Sex and Gender Information Value Date Recorded Sex Assigned at Female 04/30/2022 10:15 AM EDT Legal Sex Female 10:15 AM EDT Gender Identity Female 04/30/2022 10:15 AM EDT Sexual Orientation Straight 04/30/2022 10 :15 AM EDT documented as of this encounter Miscellaneous Notes * Telephone Encounter - [place] - 06/26/2023 11:02 AM EST Generator Technician called [facility], spoke with pharmacy staff who stated PA not needed for vitamins and confirmed pt picked up med on 06/19. documented in this encounter Plan of Treatment Upcoming Encounters Date Type Department Care Team (Late st Contact Info) Description 04/09/2025 10:00 AM EDT Office Visit [facility] MEDICINE [address] [place] [phone] Ivet Nelson MD [address] [place] [phone] 05/24/2025 1:45 PM EST Office Visit [facility] MEDICINE [address] [place] [phone] Blake Enciso MD [address] [place] [phone] documented as of this encounter Visit Diagnoses Not on filedocumented in this encounter Additional Health Concerns Assessment Noted Time PHQ-9 Depression Total Score: 11 023 11:56 AM EDT documented as of this encounter
--- OUTSIDE RECORDS SUMMARY | 2025-03-29 15:24 | XMS_ITS | Clinical Summary ---
Author Organization [employer] Address [address] [facility] [address] [place] [address] Care Team Providers Care Privacy Officer Name Role Phone Unavailable Primary Care Provider Unavailabl e Allergies Active Allergy Reactions Criticality Noted Date Comments Fluoxetine Hives 07/03/2019 Penicillins Hives 10/24/2022 Medications * This document contains information received from the source organization and may not represent a complete record from that organization. cetirizine (ZyrTEC) 10 MG tablet TAKE 1 TABLET BY MOUTH EVERY DAY 06/04/20 22 Active Hydrocortisone, Perianal, 1 % cream Apply to affected area once daily 28 g 1 11/22/19 23 Active multivitamin () 27-0.8 MG tablet Take 1 tablet by mouth in the morning. 90 tablet 3 06/17/20 23 Active albuterol 108 (90 Base) MCG/ACT inhaler Inhale 2 puffs every 4 (four) hours if needed for wheezing or shortness of breath. Maximum 8 puffs per day 18 g 3 06/17/20 23 Active Blood Pressure Monitoring (Omron 3 Series BP Monitor) device Check blood pressure once daily and as needed 1 each 10/01/19 24 Active buprenorphine-na loxone (Suboxone) 4-1 MG per sublingual filmIndications: Opioid type dependence, continuous (CMS/HCC) (HCC) Place 1 Film under the tongue Once per day for 13 days. Take as directed. 13 Film 04/16/20 24 Active buprenorphine-na loxone (Suboxone) 2-0.5 MG per sublingual filmIndications: Opioid type dependence, continuous (CMS/HCC) (HCC) Place 1 Film under the tongue 2 times daily for 28 days. 56 Film 05/18/20 24 Active docusate sodium (Colace) 100 MG capsuleIndicatio ns:Opioid use disorder TAKE 1 OR 2 CAPSULES BY MOUTH AT BEDTIME NEEDED FOR CONSTIPATION . 180 capsule 1 07/14/19 25 Active ibuprofen 600 MG tablet Take 1 tablet (600 mg) by mouth every 8 (eight) hours if needed for mild pain, moderate pain, fever or headaches. 21 tablet 01/07/20 25 Active QUEtiapine (SEROquel) 25 MG tabletIndication s:Mood disorder (CMS/HCC) Take 1 tablet (25 mg) by mouth at bedtime. 30 tablet 2 01/22/20 25 Active buPROPion (Wellbutrin) 75 MG tabletIndication s:Posttraumatic stress disorder,JIMBO (generalized anxiety disorder) Take 1 tablet (75 mg) by mouth 2 times daily. 60 tablet 2 01/22/20 25 Active SUMAtriptan (Imitrex) 50 MG tablet Take 1 tablet (50 mg) by mouth 1 (one) time if needed for migraine for up to 1 dose. May repeat dose in 2 hours if no relief. Do not exceed 2 doses in 24 hours. 9 tablet 5 02/02/20 25 Active buprenorphine-na loxone (Suboxone) 8-2 MG SL tabletIndication s:Opioid dependence, uncomplicated (CMS/HCC) (HCC) Place 1 tablet under the tongue 3 times daily for 7 days. 21 tablet 03/22/20 25 Active buprenorphine ER (Sublocade) 300 mg/1.5mL injectionIndicat ions:Opioid dependence, uncomplicated (CMS/HCC) (HCC) Inject 1.5 mL (1 each) under the skin every month to absorb continually. 1.5 mL 1 03/29/20 25 025 Active buprenorphine-na loxone (Suboxone) 8-2 MG SL tabletIndication s:Opioid dependence, uncomplicated (CMS/HCC) (HCC) Place 1 tablet under the tongue 3 times daily. 84 tablet 1 02/02/20 25 025 Discontinued(R eorder (will not trigger notification to Pharmacy)) buprenorphine ER (Sublocade) 300 mg/1.5mL injectionIndicat ions:Opioid dependence, uncomplicated (CMS/HCC) (HCC) Inject 1.5 mL (1 each) under the skin every month to absorb continually. 1.5 mL 1 03/29/20 25 09/29/2 025 Discontinued(R eorder (will not trigger notification to Pharmacy)) Hospital, Clinic, or Other Facility Administered Medication Ordered Dose Route Frequency Start Date End Date Status buprenorphine ER (Sublocade) 300 mg/1.5mL injection 1 eachIndications:Opioid dependence, uncomplicated ([facility]) ([facility]) 1 each SC Over 1 month 03/29/2025 03/29/2025 Ended Active Problems Problem Noted Date Diagnosed Date Bipolar 2 disorder ([facility]) 11/24/2024 Alcohol use disorder, mild, in sustained remissi on 06/15/2024 Opioid use disorder in remission 12/24/2023 06/18/2023 Assessment & Plan (06/18/2023 10:40 AM EST): - unknown gestational age - check hCG - prescribe vitamin - discussed about immunizations; pt declined influenza, COVID, or Tdap vaccines. - refer to [facility] Chronic midline thoracic back pain 12/28/2022 Assessment & Plan (12/28/2022 11:36 AM EDT): - in a setting of macromastia - refer to chiropractor - home stretching exercise - avoid hunchback-posture Skin tag of anus 12/28/2022 Assessment & Plan (12/28/2022 11:40 AM EDT): - irritated, pedunculated lesion from anus - reassured that it is not a hemorrhoid - refer to general surgery to remove Abnormal uterine bleeding (AUB) 11/21/2022 Assessment & Plan (12/28/2022 11:39 AM EDT): - she tried oral contraceptive and Depo-Provera - plan for Nexaplanon insertion by [facility] Assessment & Plan (11/21/2022 11:18 AM EDT): -will check labs -will Rx Oral Contraceptive Pelvic pain 11/21/2022 Assessment & Plan (12/01/2022 7:08 AM EDT): - Discussed about my concerns for long-term use of Oxycodone use with patient - Discussed to changed Oxycodone to Tylenol with Codeine - Eventually taper off from opioid analgesic JIMBO (generalized anxiety disorder) 07/22/2022 Assessment & Plan (04/09/2023 12:17 PM EDT): Assessment: Patient with depressive symptoms such as anhedonia, feeling depressed, sleep disturbance, fatigue, over eating, low self-esteem, and crying spells. Also reported anxiety symptoms such as nervousness, persistent worry, diminished ability to relax, restlessness, and irritability. Lastly she reported has been on and off with opioid use (percocet), reported use started at age of 17 y/o with multiple attempts to cut off but was not successful, cravings, withdrawals symptoms, use despite negative effects and excessive time spend recovering from substance. Factors contributing to her sxs are, opioid addiction and low self-esteem. Patient will benefit from Ind. Therapy and Medication Management. At this time Abigail Camejo meets criteria for Visit Diagnoses: Problem List Items Addressed This Visit Other Moderate anxiety Opioid use disorder Moderate episode of recurrent major depressive disorder (CMS/HCC) Patient ready to address current needs Yes Strengths include wiling to accept help PLAN: 1. Follow up with [facility]: during OBAT appt 2. Patient goal is improve mental health and become sober 3. Behavioral Recommendations a. Ind. Therapy, referral will be submitted b. Medication Management c. Engagement with d. Use of coping skills provided as recommended e. 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 [facility] - continue parenteral iron treatment Assessment & Plan (12/01/2022 7:07 AM EDT): - check CBC and iron study - if hematocrit < 27, will send to ED for transfusion. Otherwise, advised pt to follow up with parts sales advisor for iron infusion Assessment & Plan (10/24/2022 12:42 PM EDT): Noted pt has hx of ferropenic anemia -pt reports irregular menstrual periods PCP -Dr Mills referred already to hematology x poor iron tolerance Pt states has apt coming w hem ,currently not on oral iron -advised to improve food rich in iron -prescribed iron gluconate instead of sulfonate tried in the past -explained to start after pt completes her ATB to avoid too many SE and to f w parts sales advisor ,will hold now on repeating CBC given upcoming visit w parts sales advisor -RTC in 4 weeks w PCP to continue care Assessment & Plan (07/27/2022 9:02 AM EST): - check lab - she reports symptoms of anemia, mainly fatigue - likely due to menorrhagia, but she has had anemia since she was child - encourage to try iron supplement again - pt agreed to try it with antiemetic; will prescribe ondansetron - pt would like to receive parenteral iron - will refer to parts sales advisor after confirming iron deficiency anemia by lab today - continue OCP - consider referral to GI for AUB / menorrhagia Posttraumatic stress disorder 07/30/2013 Resolved Problems Problem Noted Date Diagnosed Date Resolved Date Opioid use disorder 04/09/2023 05/26/20 24 Assessment & Plan (06/18/2023 10:38 AM EST): - participating [facility] - Currently on Suboxone 4.5 mg bid (cutting 12/3 mg into 8 pieces and taking 3 pieces bid); pt does not want to change to Subutex. - Advised to go to discuss with OBAT provider - Dr. Enciso has generously agreed to see her after this appt. Assessment & Plan (04/09/2023 12:17 PM EDT): Assessment: Patient with depressive symptoms such as anhedonia, feeling depressed, sleep disturbance, fatigue, over eating, low self-esteem, and crying spells. Also reported anxiety symptoms such as nervousness, persistent worry, diminished ability to relax, restlessness, and irritability. Lastly she reported has been on and off with opioid use (percocet), reported use started at age of 17 y/o with multiple attempts to cut off but was not successful, cravings, withdrawals symptoms, use despite negative effects and excessive time spend recovering from substance. Factors contributing to her sxs are, opioid addiction and low self-esteem. Patient will benefit from Ind. Therapy and Medication Management. At this time Abigail Camejo meets criteria for Visit Diagnoses: Problem List Items Addressed This Visit Other Moderate anxiety Opioid use disorder Moderate episode of recurrent major depressive disorder (CMS/HCC) Patient ready to address current needs Yes Strengths include wiling to accept help PLAN: 1. Follow up with [facility]: during OBAT appt 2. Patient goal is improve mental health and become sober 3. Behavioral Recommendations a. Ind. Therapy, referral will be submitted b. Medication Management c. Engagement with d. Use of coping skills provided as recommended e. [facility] contact number for extra support Moderate episode of recurren t major depressive disorder (CMS/HCC) 04/09/2023 10/01/2024 Assessment & Plan (05/26/2024 2:39 PM EST): PROGRESS NOTE: ID: Abigail is a 24 y.o. straight-identified cis-female with previous documented hx of Depression, Anxiety, Substance Use Disorder, and Trauma services including [facility] Psychotherapy psychopharmacology who presents for Anxiety, Depression, and Substance Use Disorder During IB Consult Abigail presenting with depressed mood, irritable mood, sense of isolation/loneliness , change in appetite or weight reduce appetite, changes in sleep difficulty falling asleep and difficulty staying asleep , psychomotor agitation, fatigue/loss of energy, worthlessness, inappropriate/excessive guilt , difficulty concentrating, excessive worry/anxiety, difficulty controlling worry, and anxiety/worry associated to restlessness and/or feeling keyed-up/On edge , easily fatigued , difficulty concentrating and/or mind going blank , irritability, and sleep disturbance difficulty falling asleep and difficulty staying asleep , Flashbacks, Intrusive trauma memories and thoughts, Hypervigilance, Avoidance of trauma reminders/triggers, Increased startle response, Fear and distrust in relationships, Isolation from normal social supports, and Fear of social judgement, and ptn has been in suboxone 1mg/day during her now she is taking 8mg 2x/day, has no concerns, in regard to Opioids; for a period of 18+ mo, for most or all symptoms in the context of having a baby in March, stress relationship with the baby father, ptn was recently incarcerated for 30 days, DCF take custody of 3 children, lack of outpatient services. PLAN: (check all that apply) Behavioral Health Integration Plan Internal Follow up with [facility] External OP psychiatry Referral Patient Self Plan Patient to utilize skills provided in intervention , [facility], Comply with medication , Patient to engage in OP therapy , and Patient to reach out to [facility] as needed Hemorrhoids 11/21/2022 12/28/2022 Assessment & Plan (11/21/2022 11:34 AM EDT): Will Rx Hydrocortisone cream Endometritis 10/24/2022 12/27/2022 Assessment & Plan (10/24/2022 12:41 PM EDT): Pt recently underwent a DIC that likely complicated w endometritis s/p IV ATB at hospital x 2 days ,pt was dc home on oral doxy only ,now afebrile but with ongoing pelvic pain and reported urinary symptoms pelvic exam done today here by Ritu Álvarez -no vaginal discharge seen, neg CMT, no masses, slight uterine tenderness ,urine dipstick here is neg. There is a + HCG BUT pt was recently preg and had a spontaneous so expected level to be + still. Under the microscopy vaginal swab was neg x trich ,clue cells and normal ph. Possible pain is associate w endometritis that is in tx and seems having some urinary retention possible due to pelvic swelling w neg urine dipstick . -alarm signs and symptoms discussed in length w pt in case needs to go back to ER -sent to lab today urine cx, vaginal swab x cl,Gn,trich,vaginosis. --will call pt if relevant findings -advised to take tylenol x now e 8 hours and if still pain add ibuprofen -has 800 mg at home advised to take only x one week and if needed x mod pain, pt was dced from hospital on oxycodone 5 mg -I reviewed [facility] and only had 5 tab at [facility] ,already completed , pt denies hx of opioid abuse -prescribed med x 5 days ( total of 10 tab) in case of severe pain -zofran prn x nausea -tamsulosin x now given urinary symptoms appears associated w urinary retention possible due to pelvic inflammation---explained that if symptoms dont get better would need pelvic/renal US to r/o stones but seems less likely At this time. -advised to complete doxy and add today metronidazole 500 mg BID to complete 14 days of both meds -pt has apt w her EXECUTIVE VICE PRESIDENT AND CHIEF FINANCIAL OFFICER in 11/07/2022 -I Advised to f up w them as well about pap smear and contraception methods ,discussed here w Ritu Álvarez-about options but pt wants to hold x now -may benefit to get progestin based contraception. Anxiety about health 10/18/2017 025 Encounters * This document contains information received from the source organization and may not represent a complete record from that organization. Date Type Department Care Team Description 03/29/2025 2:00 PM EDT Office Visit [facility] [address] [place] [address] [id number] Blake Enciso MD Opioid dependence, uncomplicated (CMS/HCC) (Primary Dx) 03/29/[address] [facility] [address] [place] [address] [phone] Slime Deluna RN Opioid dependence, uncomplicated (CMS/HCC) 03/29/2025 Travel 03/22/[address] [facility] [address] [place] [address] [phone] Slime Deluna RN 03/22/[address] [facility] [address] [place] [address] [phone] Slime Deluna RN Opioid dependence, uncomplicated (CMS/HCC) 02/01/2025 1:45 PM EDT Office Visit [facility] [address] [place] [address] [phone] Blake Enciso MD Opioid dependence, uncomplicated (CMS/HCC) (Primary Dx); Migraine without status migrainosus, not intractable, unspecified migraine type 02/01/[address] [facility] [address] [place] [address] Slime Deluna RN Opioid dependence, uncomplicated ([facility]/HCC) 02/01/2025 Travel 01/29/[address] [facility] [address] [place] [address] Slime Deluna RN 01/21/[address] [facility] [address] [place] [address] Ivet Nelson MD Mood disorder ([facility]); Posttraumatic stress disorder; JIMBO (generalized anxiety disorder) 01/20/[address] [facility] [address] [place] [phone] Slime Deluna RN Opioid dependence, uncomplicated ([facility]/HCC) 01/15/[address] [facility] [address] [place] [phone] Blake Enciso MD 01/11/[address] [facility] [address] [place] [phone] James Smith MD 01/06/[address] [facility] [address] [place] [address] [phone] Slime Deluna RN 01/06/[address] [facility] [address] [place] [address] [phone] Matty Vogel MD 01/06/[address] [facility] [address] [place] [address] [phone] Slime Deluna RN 12/29/2024 1:30 PM EDT Office Visit [facility] [address] [place] [phone] Blake Enciso MD Opioid dependence, uncomplicated ([facility]) (Primary Dx) 12/29/[address] [facility] [address] [place] [address] [phone] James Smith MD 12/29/2024 Travel from Last 3 Months Immunizations Immunization Administration Dates Next Due DTaP, 5 pertussis antigens 05/17/2003,,1999,1999,0 1999 HPV, Quadrivalent 09/21/2014,03/09/2014,09/18/19 14 Hep A, ped/adol, 2 dose 10/11/2011,04/11/2011 Hep B, Adolescent or Pediatric 05/14/2001,1999,1999 Hib (HbOC) 12/25/2001 IPV 05/17/2003,07/02/2000,1999 ,1999 Influenza, IIV3, injectable 07/26/2006 MMR 05/17/2003,05/02/2000 Meningococcal MCV4P ACYW-135 09/22/2015,11/24/19 11 Pneumococcal Conjugate PCV 7 07/02/2000,05/02/20 00 Rotavirus Pentavalent 05/20/2000 Tdap 04/05/2017,11/23/2010 Varicella 03/30/2013,05/20/2000,05/02/2000 Social History Tobacco Use Types Packs/Day Years Used Date Smoking Tobacco: Never Passive Smoke Exposure: Never Smokeless Tobacco: Never Tobacco Cessation:Counseling Given: Not Answered Alcohol Use Standard Drinks/Week Comments Never 0 [...] Orientation Straight 04/30/2022 10 :15 AM EDT Last Filed Vital Signs Vital Sign Reading Time Taken Comments Blood Pressure 126/74 06/17/2023 3:21 PM EST Pulse 98 06/17/2023 1:07 PM EST Temperature 36.7 C (98.1 F) 06/17/2023 1:07 PM EST Respiratory Rate 15 06/17/2023 1:07 PM EST Oxygen Saturation 98% 06/17/2023 1:07 PM EST Inhaled Oxygen Concentration - - Weight 66.9 kg (147 lb 6.4 oz) 06/17/2023 1:07 P M EST Height 159.9 cm (5' 2.95 ) 06/17/2023 1:07 PM ES T Body Mass Index 26.16 06/17/2023 1:07 PM EST Plan of Treatment Upcoming Encounters Date Type Department Care Team (Late st Contact Info) Description 04/09/2025 10:00 AM EDT Office Visit [address] [phone] Ivet Nelson MD [address] [place] [phone] 05/24/2025 1:45 PM EST Office Visit [address] [phone] Blake Enciso MD [address] [place] [phone] Health Maintenance Due Date Last Done Comments Disability Screening 1999 Family Planning (PISQ) 2014 Pneumococcal Vaccine: Pediatrics (0 to 5 Years) and At-Risk Patients (6 to 49) Years (1 of 2 - PCV) 2018 07/02/2000, 05/02/2000 HPV/Cotest 09/17/2024 COVID-19 Vaccine ( - season) 2025 Influenza Vaccine (#1) 2025 07/26/2006 SDOH Screening 03/23/2025 03/23/2024 Alcohol/Substance Use Screening 06/10/2025 06/10/2024 Lipid Panel 12/26/2025 12/26/2020 Tobacco Screening 02/01/2026 02/01/2025 Depression Screening 02/10/2026 02/10/2025, 02/11/20 Pap Smear 09/17/2026 09/18/2023, 11/01/2020 DTaP/Tdap/Td Vaccines (9 - Td or Tdap) 01/08/2034 01/09/2024, 04/05/2017, 11/23/2010, Additional history exists Zoster Vaccines (1 of 2) 2049 RSV Patients and Patients Aged 60 years or older (1 - 1-dose 75+ series) 2074 Rotavirus Vaccines Aged Out 05/20/2000 No longer eligible based on patient's age to complete this topic Hepatitis B Vaccines Completed 05/14/2001, 05/01/2000, 1999 HIB Vaccines Completed 12/25/2001 IPV Vaccines Completed 05/17/2003, 08/2000, 1999, Additional history exists Hepatitis A Vaccines Completed 10/11/2011, 04/11/20 11 HPV Vaccines Completed 09/21/2014, 03/2014, 09/17/2013 Meningococcal Vaccine Completed 09/22/2015, 011 HIV Screening Completed 12/01/2024, 07/24/2022 Hepatitis C Screening Completed 12/01/2024, 023 Meningococcal B Vaccine Aged Out No l onger eligible based on patient's age to complete this topic RSV under 20 months Aged Out No longe r eligible based on patient's age to complete this topic Procedures Procedure Name Priority Date/Time Associated Diagnosis Comments POCT [facility]DIS[facility]-14 URINE DRUG SCREEN Routine 02/02/2025 9:05 AM EDT Migraine without status migrainosus, not intractable, unspecified migraine type POCT MADDISON-14 URINE DRUG SCREEN Routine 12/29/2024 1:37 PM EDT Opioid dependence, uncomplicated (CMS/HCC) HEPATITIS C AB W/REFL TO HCV RNA, QN, PCR Routine 12/01/2024 2:23 PM EDT Opioid dependence, uncomplicated (CMS/HCC) HIV 1/2 ANTIGEN/ANTIBODY, FOURTH GENERATION W/RFL Routine 12/01/2024 2:23 PM EDT Opioid dependence, uncomplicated (CMS/HCC) HM PAP/HPV Routine 09/18/2023 12:00 AM EDT LIPID PANEL, STANDARD Routine 12/26/2020 1:46 PM EDT from Last 3 Months or Most Recently Relevant to Health Maintenance Results * (ABNORMAL) POCT MADDISON-14 Urine Drug Screen (02/02/2025 9:05 AM EDT) Only the most recent of2 resultswithin the time period is included. THC Negative Negative Cocaine Screen, Urine Negative Negative Opiate Screen, Urine Negative Negative Methamphetamine Screen Urine Negative Negative Amphetamine Screen, Urine Negative Negative Benzodiazepines Screen, Urine Negative Negative Barbiturate Screen, Urine Negative Negative Methadone Screen, Urine Negative Negative Buprenophine Screen, Urine Positive(A) Negative TCA, Urine Negative Negative MDMA Urine Negative Negative ng/mL Oxycodone Screen, Urine Negative Negative Phencyclidine (PCP), Urine Negative Negative Fentanyl, Urine Negative Negative Urine Urine specimen obtained by clean catch procedure / Unknown 02/02/2025 9:05 AM EDT Blake Enciso MD POINT OF CARE TEST ENTER/EDIT OR DERABLES Final Result * Hepatitis C Antibody with Reflex to HCV, RNA, Quantitative, Real-Time PCR (12/01/2024 2:23 PM EDT) Hepatitis C Antibody Nonreactive Nonreactive [facility] Comment:Antibodies to HCV no t detected; does not exclude early acuteHCV infection. Blood Venous blood specimen / Unknown 12/01/2024 2:23 PM EDT 12/01/2024 4:54 PM EDT Blake Enciso MD LAB BLOOD ORDERABLES Final Resul t Performing Organization Address [facility] Co de Phone Number [facility] [address] [place] [phone] * HIV-1/2 Antigen and Antibodies, Fourth Generation, with Reflexes (12/01/2024 2:23 PM EDT) HIV AB/AG Nonreactive Nonreactive [facility] Comment:HIV-1 p24 Ag and/or HIV-1/HIV-2 Ab not detected.A test result that is nonreactive does not exclude thepossibility of exposure to or infection with HIV-1 and/orHIV-2. Nonreactive results in this assay for individualswith prior exposure to HIV-1 and/or HIV-2 may be due toantigen and antibody levels that are below the limit ofdetection of this assay.The [employer] HIV Ag/Ab Combo assay result andsupplemental assay results should be interpreted inconjunction with the patient's clinical presentation,history and other laboratory results. If the results areinconsistent with clinical evidence, additional testing issuggested to confirm the result. Blood Venous blood specimen / Unknown 12/01/2024 2:23 PM EDT 12/01/2024 4:54 PM EDT Blake Enciso MD LAB BLOOD ORDERABLES Final Resul t Performing Organization Address [facility]/ZIP Co de Phone Number [facility] [address] [place] [phone] [phone] * (ABNORMAL) HM PAP/HPV (09/18/2023 12:00 AM EDT) Pap Smear 4. LSIL(A) 1. NILM Jennifer Provider HEALTH MAINTENANCE Edited Result - Final * (ABNORMAL) LIPID PANEL, STANDARD (12/26/2020 1:46 PM EDT) Chol/HDLC Ratio 2.7 <5.0 (calc) [facility] Cholesterol, Total 110 <200 mg/dL [facility] HDL Cholesterol 41(L) > OR = 50 mg/dL [facility] LDL Cholesterol 52 mg/dL (calc) [facility] Comment: Reference range: <100 Desirable range <100 mg/dL for primary prevention; <70 mg/dL for patients with CHD or diabetic patients with > or = 2 CHD risk factors. LDL-C is now calculated using the Margie calculation, which is a validated novel method providing better accuracy than the Friedewald equation in the estimation of LDL-C. Socrates SS et al. SHELBY. 2013;310(19): 6907-6524 (http://education.Seedpost & Seedpaper.Swidjit/faq/PYV883) Non-HDL Cholesterol 69 <130 mg/dL (calc) [facility] Comment: For patients with diabetes plus 1 major ASCVD risk factor, treating to a non-HDL-C goal of <100 mg/dL (LDL-C of <70 mg/dL) is considered a therapeutic option. Triglycerides 90 <150 mg/dL [facility] 12/26/2020 1:46 PM EDT us Hollie Martines MOBILE GAME ENGINEER LAB BLOOD ORDERABLES Final Result [facility] [address] from Last 3 Months or Most Recently Relevant to Health Maintenance [facility]
--- OUTSIDE RECORDS SUMMARY | 2025-03-29 15:24 | XMS_ITS | Encounter Summary ---
Author Organization [employer] Address [address] [facility] 7t [place] [address] Care Team Providers Care Multiple Cut Off Saw Operator Name Role Phone Unavailable Primary Care Provider Unavailabl e Encounter Details Date Type Department Care Team ([facility] st Contact Info) Description 08/29/2022 Telephone [facility] 230 [place], [place] [phone] Hanna Mills MD 230 [place], [place] [phone] Social History Tobacco Use Types Packs/Day Years [...] encounter Miscellaneous Notes * Telephone Encounter - Nu SOPHIE Wallace - 09/05/2022 9:40 AM EST Ezequiel w/patient expl. she does not meet criteria for tinted windows for just migraines. Expl. that car already has tinted windows and she can wear sunglasses. She stated she went to eye doctor, we do not have notes but she can take the form to her eye doctor and have them complete the form. Eye doctor did not suggest sunglasses and did not give glasses ??? She said she will wait till PCP gets back from vacation. Form is in green folder on hold. documented in this encounter Plan of Treatment Upcoming Encounters Date Type Department Care Team (Late st Contact Info) Description 04/09/2025 10:00 AM EDT Office Visit [address] [address] Ivet Nelson MD 230 [place], [place] [phone] 05/24/2025 1:45 PM EST Office Visit [facility] 230 [place], [place] [phone] Blake Enciso MD [address] [place] [address] documented as of this encounter Visit Diagnoses Not on filedocumented in this encounter Additional Health Concerns Assessment Noted Time PHQ-9 Depression Total Score: 5 07/23/19 23 3:04 PM EST documented as of this encounter
--- OUTSIDE RECORDS SUMMARY | 2025-03-29 15:24 | XMS_ITS | Encounter Summary ---
Author Organization [employer] Address 75 [facility] 7t [place] [address] Care Team Providers Care Cotton Broker Name Role Phone Unavailable Primary Care Provider Unavailabl e Encounter Details Date Type Department Care Team ([facility] Contact Info) Description 07/25/2022 Orders Only [facility] MEDICINE [address] [place] [address] [phone] Hanna Mills MD [address] [place] [address] [phone] Iron deficiency anemia due to chronic blood loss (Primary Dx); Nausea Social History Tobacco Use Types Packs/Day Years [...] suspected to have Coronavirus/COVID-19? No / Unsure 07/23/2022 2:55 PM EST documented as of this encounter Plan of Treatment Upcoming Encounters Date Type Department Care Team ([facility] Contact Info) Description 04/09/2025 10:00 AM EDT Office Visit [facility] MEDICINE [address] [place] [address] Ivet Nelson MD 230 [place], [place] [phone] 05/24/2025 1:45 PM EST Office Visit [facility] MED[facility]INE 230 [place], [place] [phone] Blake Enciso MD 230 [place], [place] [phone] documented as of this encounter Visit Diagnoses Diagnosis Iron deficiency anemia due to chronic 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
--- OUTSIDE RECORDS SUMMARY | 2025-03-29 15:24 | XMS_ITS | Encounter Summary ---
Author Organization [employer] Address [address] [facility] 7t [place] [address] Care Team Providers Care Courtroom Deputy Or Calendar Clerk Name Role Phone Unavailable Primary Care Provider Unavailabl e Reason for Visit * Reason Comments Med Refill Encounter Details Date Type Department Care Team ([facility] st Contact Info) Description 09/16/2023 Refill [facility] 230 [place], [place] [phone] Blake Enciso MD 230 [place], [place] [phone] Uncomplicated opioid dependence (CMS/HCC) Social History Tobacco Use Types Packs/Day [...] Office Visit [facility] [address] [place] [address] [phone] Ivet Nelson MD [address] [place] [phone] 05/24/2025 1:45 PM EST Office Visit [facility] [address] [place] [address] Blake Enciso MD 230 [place] [address] documented as of this encounter Visit Diagnoses Diagnosis Uncomplicated opioid dependence (CMS/HCC) (HCC) documented in this encounter Additional Health Concerns Assessment Noted Time PHQ-9 Depression Total Score: 11 023 11:56 AM EDT documented as of this encounter
--- OUTSIDE RECORDS SUMMARY | 2025-03-29 15:24 | XMS_ITS | Encounter Summary ---
Author Organization [employer] Address [address] [facility] 7t [place] [address] Care Team Providers Care Drop Crew Laborer Name Role Phone Unavailable Primary Care Provider Unavailabl e Encounter Details Date Type Department Care Team ([facility] st Contact Info) Description 06/12/2024 Orders Only [facility] MEDICINE 230 [place] [address] Hanna Mills MD 230 [place], [place] [phone] Social History Tobacco Use Types Packs/Day Years [...] AM EDT documented as of this encounter Functional Status * Over the past 2 weeks, how often have you been bothered by any of the following problems? Question Answer Date of Assessment Author Patient Health Questionnaire-2 Score 3 05/31 8:21 AM Eliseo Le * Little interest or pleasure in doing things Answer Date of Assessment Author Not at all 06/12/2024 8:21 AM Susanna Le * Feeling down, depressed, or hopeless Answer Date of Assessment Author Nearly every day 06/12/2024 8:21 AM Eliseo Le * Trouble falling or staying asleep, or sleeping too much Answer Date of Assessment Author Nearly every day 06/12/2024 8:21 AM Eliseo Le * Feeling tired or having little energy Answer Date of Assessment Author More than half the days 06/12/2024 8:21 AM Eliseo Wade * Poor appetite or overeating Answer Date of Assessment Author More than half the days 06/12/2024 8:21 AM EST Eliseo Martino * Feeling bad about yourself - or that you are a failure or have let yourself or your family down Answer Date of Assessment Author Several days 06/12/2024 8:21 AM Susanna Le * Trouble concentrating on things, such as reading the newspaper or watching television Answer Date of Assessment Author Several days 06/12/2024 8:21 AM Susanna Le * Moving or speaking so slowly that other people could have noticed? Or the opposite - being so fidgety or restless that you have been moving around a lot more than usual. Answer Date of Assessment Author Nearly every day 06/12/2024 8:21 AM Eliseo Le * Thoughts that you would be better off or hurting yourself in some way Answer Date of Assessment Author Not at all 06/12/2024 8:21 AM Susanna Le * Patient Health Questionnaire-9 Score Answer Date of Assessment Author 15 06/12/2024 8:21 AM Susanna Le * How difficult have these problems made it for you to do your work, take care of things at home, or get along with other people? Answer Date of Assessment Author Very difficult 06/12/2024 8:21 AM Susanna Le documented as of this encounter Plan of Treatment Upcoming Encounters Date Type Department Care Team (Late st Contact Info) Description 04/09/2025 10:00 AM EDT Office Visit [facility] MEDICINE [address] [place] [phone] Ivet Nelson MD [address] [place] [phone] 05/24/2025 1:45 PM EST Office Visit [facility] MEDICINE [address] [place] [phone] Blake Enciso MD 230 [place] [address] documented as of this encounter Visit Diagnoses Not on filedocumented in this encounter Additional Health Concerns Assessment Noted Time PHQ-9 Depression Total Score: 15 024 8:21 AM EST documented as of this encounter
--- OUTSIDE RECORDS SUMMARY | 2025-03-29 15:24 | XMS_ITS | Encounter Summary ---
Author Organization [employer] Address 75 [facility] 7t [place] [address] Care Team Providers Care Printing Grey Cloth Tender Name Role Phone Unavailable Primary Care Provider Unavailabl e Encounter Details Date Type Department Care Team ([facility] Contact Info) Description 11/21/2022 Telephone [facility] MEDICINE [address] [place] [address] [phone] Hanna Mills MD [address] [place] [address] [phone] Social History Tobacco Use Types Packs/Day Years [...] suspected to have Coronavirus/COVID-19? No / Unsure 11/21/2022 10:08 AM EDT documented as of this encounter Plan of Treatment Upcoming Encounters Date Type Department Care Team ([facility] Contact Info) Description 04/09/2025 10:00 AM EDT Office Visit [facility] MEDICINE [address] [place] [address] [phone] Ivet Nelson MD 230 [place] [address] 05/24/2025 1:45 PM EST Office Visit [facility] MED[facility]INE 230 [place], [place] [phone] Blake Enciso MD 230 [place] [address] documented as of this encounter Visit Diagnoses Not on filedocumented in this encounter Additional Health Concerns Assessment Noted Time PHQ-9 Depression Total Score: 5 07/23/19 23 3:04 PM EST documented as of this encounter
--- OUTSIDE RECORDS SUMMARY | 2025-03-29 15:24 | XMS_ITS | Encounter Summary ---
Author Organization [employer] Address [address] [facility] [address] 7t [place] [address] Care Team Providers Care Long Filler Cigar Roller Machine Name Role Phone Unavailable Primary Care Provider Unavailabl e Encounter Details Date Type Department Care Team ([facility] st Contact Info) Description 08/12/2024 Orders Only [facility] 230 [place] [address] Blake Enciso MD 230 [place] [address] Social History Tobacco Use Types Packs/Day Years [...] 04/09/2025 10:00 AM EDT Office Visit [facility] MEDICINE [address] [place] [phone] Ivet Nelson MD [address] [place] [address] 05/24/2025 1:45 PM EST Office Visit [facility] MED[facility]INE [address] [place] [phone] Blake Enciso MD [address] [place] [address] documented as of this encounter Visit Diagnoses Not on filedocumented in this encounter Additional Health Concerns Assessment Noted Time PHQ-9 Depression Total Score: 15 024 8:21 AM EST documented as of this encounter
--- OUTSIDE RECORDS SUMMARY | 2025-03-29 15:24 | XMS_ITS | Encounter Summary ---
Author Organization [employer] Address 75 [facility] 7t [place] [address] Care Team Providers Care Industrial Spray Painter Name Role Phone Unavailable Primary Care Provider Unavailabl e Reason for Visit * Reason Onset Date Comments Med Refill 06/21/2024 Encounter Details Date Type Department Care Team ([facility] st Contact Info) Description 06/21/2024 Refill [facility] MEDICINE 230 [place] [address] Blake Enciso MD [address] [place] [address] Opioid type dependence, continuous (CMS/HCC) Social History [...] Description 04/09/2025 10:00 AM EDT Office Visit [facility] MEDICINE [address] [place] [phone] Ivet Nelson MD [address] [place] [address] 05/24/2025 1:45 PM EST Office Visit [facility] MEDICINE [address] [place] [address] [phone] Blake Enciso MD [address] [place] [phone] documented as of this encounter Visit Diagnoses Diagnosis Opioid type dependence, continuous (CMS/HCC) (HCC) Opioid type dependence, continuous documented in this encounter Additional Health Concerns Assessment Noted Time PHQ-9 Depression Total Score: 15 024 8:21 AM EST documented as of this encounter
--- OUTSIDE RECORDS SUMMARY | 2025-03-29 15:24 | XMS_ITS | Encounter Summary ---
Author Organization [employer] Address [address] [facility] [address] 7t [place] [address] Care Team Providers Care Material Mixer Name Role Phone Unavailable Primary Care Provider Unavailabl e Encounter Details Date Type Department Care Team ([facility] st Contact Info) Description 06/12/2024 Orders Only [facility] 230 [place] [address] Blake Enciso MD 230 [place] [address] Social History Tobacco Use Types Packs/Day Years [...] AM EDT Office Visit [facility] MEDICINE [address] [place] [address] Ivet Nelson MD [address] [place] [address] 05/24/2025 1:45 PM EST Office Visit [facility] MEDICINE [address] [place] [address] Blake Enciso MD 230 [place] [address] documented as of this encounter Visit Diagnoses Not on filedocumented in this encounter Additional Health Concerns Assessment Noted Time PHQ-9 Depression Total Score: 15 024 8:21 AM EST documented as of this encounter
--- OUTSIDE RECORDS SUMMARY | 2025-03-29 15:24 | XMS_ITS | Encounter Summary ---
Author Organization [employer] Address [address] [facility] [address] 7t [place] [address] Care Team Providers Care Surgery Scheduler Name Role Phone Unavailable Primary Care Provider Unavailabl e Encounter Details Date Type Department Care Team ([facility] st Contact Info) Description 04/30/2023 Orders Only [facility] 230 [place], [place] [phone] Blake Enciso MD 230 [place] [address] Social History Tobacco Use Types Packs/Day Years [...] Patient Health Questionnaire-2 Score 5 04/09/2023 Comments No Sex and Gender Information Value [...] Office Visit [facility] MEDICINE [address] [place] [address] Ivet Nelson MD 230 [place] [address] 05/24/2025 1:45 PM EST Office Visit [facility] MEDICINE [address] [place] [address] Blake Enciso MD 230 [place] [address] documented as of this encounter Visit Diagnoses Not on filedocumented in this encounter Additional Health Concerns Assessment Noted Time PHQ-9 Depression Total Score: 11 023 11:56 AM EDT documented as of this encounter
--- OUTSIDE RECORDS SUMMARY | 2025-03-29 15:24 | XMS_ITS | Clinical Summary ---
Author Organization [facility] Address [address] [place] [address] Care Team Providers Care Protective Services Social Worker Name Role Phone Unavailable Primary Care Provider [...]
[2025-03-29 16:10] LABS: MANUAL DIFF FLAG NO
[2025-03-29 16:27] LABS: Hematocrit 37.8 % (37.0-47.0); Hemoglobin 12.5 g/dl (12.0-16.0); Imm Gran Abs Auto 0.02 X10*3/uL (0.00-0.03); Imm Gran Pct Auto 0.4 % (0.0-0.4); Lymphocytes Absolute Auto 1.8 X10*3/uL (1.2-4.9); Mean Corpuscular HGB Conc 33.1 g/dl (31.0-35.0); Mean Corpuscular Hemoglobin 27.4 pg (27.0-33.0); Mean Corpuscular Volume 82.7 fL (80.0-98.0); NRBC Abs Auto 0.000 X10*3/uL (0.0-0.012); NRBC Pct Auto 0.0 /100WBC (0.0-0.2); Platelet Count 313 X10*3/uL (160-400); Red Blood Count 4.57 X10*6/uL (4.20-5.50); White Blood Count 5.2 X10*3/uL (4.8-10.8)
[2025-03-29 17:04] LABS: Alanine Aminotransferase 87 U/L (0-31); Albumin Level 4.5 g/dL (3.5-5.0); Alkaline Phosphatase 56 U/L (39-117); Anion Gap 12 (12-20); Aspartate Amino Transferase 60 U/L (5-31); Blood Urea Nitrogen 10 mg/dL (9-16); Calcium 9.2 mg/dL (8.4-10.2); Carbon Dioxide 27 mmol/L (22-29); Chloride 105 mmol/L (96-108); Estimated Glomerular Filt Rate > 60; Ferritin 50 ng/mL (10-122); Iron 69 mcg/dL (30-160); Percent Iron Saturation 26 % (15-50); Potassium 3.7 mmol/L (3.3-5.1); Sodium 140 mmol/L (135-145); Total Iron Binding Capacity 269 mcg/dL (228-428); Total Protein 7.4 g/dL (6.5-8.0); Unsaturated Iron Binding 200 ug/dL
[2025-03-30 05:11] LABS: Syphilis Screen Nonreactive (Nonreactive)
[2025-03-30 05:28] LABS: HBS Num1 174.46 mIU/mL (0-7.99); HBc Num1 0.30 S/CO (0.00-0.79); HBsAGNum1 0.32 S/CO (0.00-0.99); HIV Num 1 0.07 S/CO (0.00-0.99); Hepatitis B Surface Antigen Negative (Negative); ~HepC Num1 0.22 S/CO (0.00-0.79); ~Hepatitis B Surface Antibody REACTIVE (Nonreactive); ~Hepatitis C Antibody Nonreactive (Nonreactive)
[2025-03-31 20:43] LABS: TS Negative Control Passed; TS Panel A 0; TS Panel B 0; TS Positive Control Passed; TSpotTB Negative (Negative)
[2025-04-02 05:54] LABS: ~Hepatitis A Antibody IgG 3.81 S/CO (0.00-0.99)
== END 2025-03-29 13:47 | disposition home or self-care (01) ==
LOC: HO.HHCL 13:46
PROVIDERS: Emergency Medicine; Visit Provider Nurse Practitioner Family
DX: Z11.4 Encounter for screening for human immunodeficiency virus [HIV] (principal); Z11.1 Encounter for screening for respiratory tuberculosis; Z11.59 Encounter for screening for other viral diseases; D50.9 Iron deficiency anemia, unspecified; F11.20 Opioid dependence, uncomplicated
CPT/HCPCS: 36415; 80053; 82728; 83540; 85025; 86481; 86704; 86706; 86708; 86780; 86803; 87340; 87389

== ENCOUNTER 2025-04-06 12:27 | Outpatient (REF) | payer MEDICAID, SELFPAY ==
--- NOTE | ~2025-04-06 | US_ITS ---
EXAMINATION: US PELVIS CLINICAL INFORMATION: Abnormal uterine bleeding. COMPARISON: 05/29/2023. TECHNIQUE: Ultrasound of the pelvis is performed using both transabdominal and transvaginal transducers along with Doppler. Transvaginal imaging is performed due to inadequate visualization transabdominally. FINDINGS: Uterus: The uterus is anteverted, retroflexed, and measures 10.5 x 4.4 x 6.7 cm. Cervix appears normal with small nabothian cysts present. The double wall endometrial thickness is 6 mm. It is uniform without irregularity. The uterus is smooth in contour and has normal myometrial echogenicity. No visible fibroid. Adnexa: Both ovaries are visualized. There is normal color flow to the adnexa. There is no ovarian torsion. There is trace fluid in the cul-de-sac, likely physiologic. There are no adnexal masses. Right ovary measures 3.1 x 1.3 x 1.8 cm. Volume = 3.8 mL. Normal sonographic appearance. Left ovary measures 2.8 x 1.5 x 2.5 cm. Volume = 5.5 mL. Normal sonographic appearance. US/US pelvic and transvaginal IMPRESSION: 1. Normal pelvic ultrasound. Endometrial thickness is 6 mm, and is uniform without irregularity. No myometrial abnormalities. 2. Normal ovaries bilaterally Electronically signed by: Jarad Lomas MD 04/06/2025 04:30 PM EDT
--- OUTSIDE RECORDS SUMMARY | 2025-04-06 15:20 | XMS_ITS | Clinical Summary ---
Author Organization [facility] Address [address] [place] [address] Care Team Providers Care Binder Coverstitch Name Role Phone Unavailable Primary Care Provider [...]
--- OUTSIDE RECORDS SUMMARY | 2025-04-06 15:20 | XMS_ITS | Clinical Summary ---
Author Organization [facility] Address [address] [place] [address] Care Team Providers Care Wearing Apparel Presser Name Role Phone Physician, No Pcp Primary Care Provider Unavaila ble Allergies Active Allergy Reactions Criticality Noted Date Comments Fluoxetine Hives 10/22/2023 Hives/Urticaria Penicillins Hives 12/07/2019 Hives/Urticaria Medications aspirin 81 mg EC tablet Take 2 Tablets by mouth daily. 11/28/2023 Active blood pressure test kit (BLOOD PRESSURE MONITOR [facility]) USE TO CHECK BLOOD PRESSURE EVERY DAY NEEDED 10/01/2023 Active docusate sodium (COLACE) 100 mg capsule TAKE 1 OR 2 CAPSULES BY MOUTH AT BEDTIME NEEDED FOR CONSTIPATION. 09/17/2023 Active hydrOXYzine pamoate (VISTARIL) 25 mg capsule Take 1 Capsule by mouth 3 times daily as needed for Itching. 01/04/2024 Active PNV no.153/FA/om3/d ward/epa/fish ( GUMMIES ORAL) BK-Eco-PU-Ome ga-3 ( Gummies/DHA & FA) 0.4-32.5 MG [...] (05/25/2024): X2 [facility]: Pt aware [facility] will only do [...] Doesn't meet criteria for pre-e. 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 Exaggerated stress response - seen by cardiology multiple times after first during which she had PIH and continued to have elevated BPs for months after , as well as elevated BPs in emergency settings. Per cards notes , possibly she has an exagerrated stress response, rather than true cHTN- conservatively can treat at [facility] in as we have elevated BPS in [...] second trimester 10/22/2023 Overview (03/26/2024): Transfer from [facility]- records transcribed Pt with unknown LMP . AARTI 04-01-24 confirmed by dating u/s at [facility] 08/23/2023 Ht 5'2 143 lbs 5 oz [...] , zofran, miralax Last Assessment & Plan: Food And Beverage Server on glucose screen 3rd trimester Anxiety and [...] for your loved ones. For example, child nutrition manager or elderly care for an older adult? [...] topic Insurance MEDICAID - [place] Care Teams Wearing Apparel Presser Relationship Specialty Start Date End Date Physician, No Pcp PCP - General 08/05/24
--- OUTSIDE RECORDS SUMMARY | 2025-04-06 15:20 | XMS_ITS | Encounter Summary ---
Author Organization [employer] Address 75 [facility] 7t [place] [address] Care Team Providers Care Com Writer Name Role Phone Unavailable Primary Care Provider Unavailabl e Reason for Visit * Reason Onset Date Comments Med Change Request Prior Authorization 06/17/2023 Encounter Details Date Type Department Care Team ([facility] st Contact Info) Description 06/17/2023 Refill [facility] 230 [place], [place] [phone] Hanna Mills MD 230 [place], [place] [phone] Social History Tobacco Use Types Packs/Day Years [...] Spring Casas - 06/26/2023 11:02 AM EST Commercial Escrow Assistant called [facility], spoke with pharmacy staff who stated PA not needed for vitamins and confirmed pt picked up med on 06/19. documented in this encounter Plan of Treatment Upcoming Encounters Date Type Department Care Team (Late st Contact Info) Description 05/24/2025 1:45 PM EST Office Visit [facility] 230 [place] [address] Blake Enciso MD 230 [place] [address] documented as of this encounter Visit Diagnoses Not on filedocumented in this encounter Additional Health Concerns Assessment Noted Time PHQ-9 Depression Total Score: 11 023 11:56 AM EDT documented as of this encounter
--- OUTSIDE RECORDS SUMMARY | 2025-04-06 15:20 | XMS_ITS | Encounter Summary ---
Author Organization [employer] Address [address] [facility] [address] 7t [place] [address] Care Team Providers Care Scanning Tech Name Role Phone Unavailable Primary Care Provider Unavailabl e Encounter Details Date Type Department Care Team ([facility] st Contact Info) Description 04/30/2023 Orders Only [facility] 230 [place], [place] [phone] Blake Enciso MD 230 [place] [address] Social History Tobacco Use Types Packs/Day Years [...] Description 05/24/2025 1:45 PM EST Office Visit [facility] MED[facility]INE 230 [place] [address] Blake Enciso MD 230 [place] [address] documented as of this encounter Visit Diagnoses Not on filedocumented in this encounter Additional Health Concerns Assessment Noted Time PHQ-9 Depression Total Score: 11 023 11:56 AM EDT documented as of this encounter
--- OUTSIDE RECORDS SUMMARY | 2025-04-06 15:20 | XMS_ITS | Encounter Summary ---
Author Organization [employer] Address 75 [facility] 7t [place] [address] Care Team Providers Care Test Tube Maker Name Role Phone Unavailable Primary Care Provider Unavailabl e Encounter Details Date Type Department Care Team ([facility] st Contact Info) Description 06/12/2024 Orders Only [facility] MEDICINE 230 [place] [address] Hanna Mills MD 230 [place], [place] [phone] Social History Tobacco Use Types Packs/Day Years [...] Description 05/24/2025 1:45 PM EST Office Visit [facility] MEDICINE [address] [place] [address] Blake Enciso MD 230 [place] [address] documented as of this encounter Visit Diagnoses Not on filedocumented in this encounter Additional Health Concerns Assessment Noted Time PHQ-9 Depression Total Score: 15 024 8:21 AM EST documented as of this encounter
--- OUTSIDE RECORDS SUMMARY | 2025-04-06 15:20 | XMS_ITS | Clinical Summary ---
Author Organization [employer] Address [address] [facility] [address] [place] [address] Care Team Providers Care Shell Shop Supervisor Name Role Phone Unavailable Primary Care [...] 300 mg/1.5mL injection 1 eachIndications:Opioid dependence, uncomplicated ([facility]) ([facility]) 1 each SC Over 1 month 03/29/2025 03/29/2025 Ended Active Problems Problem Noted Date Diagnosed Date Bipolar 2 disorder ([facility]) 11/24/2024 Alcohol use disorder, mild, in sustained remissi on 06/15/2024 Opioid use disorder in remission 12/24/2023 06/18/2023 Assessment & Plan (06/18/2023 10:40 AM EST): - unknown gestational age - check hCG - prescribe vitamin - discussed about immunizations; pt declined influenza, COVID, or Tdap vaccines. - refer to [facility] Chronic midline thoracic back pain 12/28/2022 Assessment [...] Depo-Provera - plan for Nexaplanon insertion by [facility] Assessment & Plan (11/21/2022 11:18 AM EDT): -will check labs -will Rx Oral Contraceptive Pelvic pain 11/21/2022 Assessment & Plan (12/01/2022 7:08 AM EDT): - Discussed about my concerns for long-term use of Oxycodone use with patient - Discussed to changed Oxycodone to Tylenol with Codeine - Eventually taper off from opioid analgesic JIMBO (generalized anxiety disorder) 07/22/2022 Assessment & Plan (03/31/2025 1:49 PM EDT): Assessment & Plan (04/09/2023 12:17 PM EDT): [...] Moderate episode of recurrent major depressive disorder ([facility]/HCC) Patient ready to address current needs Yes Strengths include wiling to accept help PLAN: 1. Follow up with [facility]: during OBAT appt 2. Patient goal is improve mental health and become sober 3. Behavioral Recommendations a. Ind. Therapy, referral will be submitted b. Medication Management c. Engagement with d. Use of coping skills provided as recommended e. 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 Scales, [facility] Heme - continue parenteral iron treatment Assessment & Plan (12/01/2022 7:07 AM EDT): - check CBC and iron study - if hematocrit < 27, will send to ED for transfusion. Otherwise, advised pt to follow up with data center project manager for iron infusion Assessment & Plan (10/24/2022 [...] too many SE and to f w data center project manager ,will hold now on repeating CBC given upcoming visit w data center project manager -RTC in 4 weeks w PCP to [...] receive parenteral iron - will refer to data center project manager after confirming iron deficiency anemia by lab today - continue OCP - consider referral to GI for AUB / menorrhagia Posttraumatic stress disorder 07/30/2013 Assessment & Plan (03/31/2025 1:49 PM EDT): Resolved Problems Problem Noted Date Diagnosed Date Resolved Date Opioid use disorder 04/09/2023 05/26/20 Assessment & Plan (06/18/2023 10:38 AM EST): - participating [facility] OBAT - Currently on Suboxone 4.5 [...] accept help PLAN: 1. Follow up with [facility]: during OBAT appt 2. Patient goal is improve mental health and become sober 3. Behavioral Recommendations a. Ind. Therapy, referral will be submitted b. Medication Management c. Engagement with d. Use of coping skills provided as recommended e. [facility] contact number for extra support Moderate episode of recurren t major depressive disorder (CMS/HCC) 04/09/2023 10/01/2024 Assessment & Plan (05/26/2024 2:39 PM EST): PROGRESS NOTE: ID: Abigail is a 24 y.o. straight-identified cis-female with previous documented hx of Depression, Anxiety, Substance Use Disorder, and Trauma services including [facility] Psychotherapy psychopharmacology who presents for Anxiety, Depression, [...] Health Integration Plan Internal Follow up with [facility] External OP psychiatry Referral Patient Self Plan Patient to utilize skills provided in intervention , [facility], Comply with medication , Patient to engage in OP therapy , and Patient to reach out to [facility] as needed Hemorrhoids 11/21/2022 12/28/2022 Assessment & [...] MassPAT and only had 5 tab at hi ,already completed , pt denies hx of [...] both meds -pt has apt w her PAPER LATCHER in 11/07/2022 -I Advised to f up [...] organization. Date Type Department Care Team Description 04/05/[address] [facility] [address] [place] [address] [phone] Ivet Nelson MD No Show 03/30/[address] [facility] [address] [place] [address] [phone] Ivet Nelson MD R/S appt 04/0903/29/2025 2:00 PM EDT Office Visit [facility] [address] [place] [address] [phone] Blake Enciso MD Opioid dependence, uncomplicated ([facility]) (Primary Dx) 03/29/2025 Orders Only GENERIC EXTERNAL DATA DEPARTMENT Provider, Generic External Data 03/29/[address] [facility] [address] [place] [address] [phone] Slime Deluna RN Opioid dependence, uncomplicated (CMS/HCC) 03/29/2025 Travel 03/22/[address] [facility] [address] [place] [address] Slime Deluna RN 03/22/[address] [facility] [address] [place] [address] Slime Deluna RN Opioid dependence, uncomplicated ([facility]) 02/01/2025 1:45 PM EDT Office Visit [facility] [address] [place] [address] Blake Enciso MD Opioid dependence, uncomplicated ([facility]) (Primary Dx); Migraine without status migrainosus, not intractable, unspecified migraine type 02/01/[address] [facility] [address] [place] [address] Slime Deluna RN Opioid dependence, uncomplicated ([facility]) 02/01/2025 Travel 01/29/[address] [facility] [address] [place] [address] Slime Deluna RN 01/21/[address] [facility] [address] [place] [address] Ivet Nelson MD Mood disorder ([facility]); Posttraumatic stress disorder; JIMBO (generalized anxiety disorder) 01/20/[address] [facility] [address] [place] [address] Slime Deluna RN Opioid dependence, uncomplicated ([facility]) 01/15/[address] [facility] [address] [place] [address] Blake Enciso MD 01/11/[address] [facility] [address] [place] [address] James Smith MD 01/06/[address] [facility] [address] [place] [address] Slime Deluna RN 01/06/[address] [facility] [address] [place] [address] Matty Vogel MD 01/06/[address] [facility] [address] [place] [address] Slime Deluna RN from Last 3 Months Immunizations Immunization Administration [...] Description 05/24/2025 1:45 PM EST Office Visit [facility] [address] [place] [address] Blake Enciso MD [address] [place] [address] Health Maintenance Due Date Last Done Comments Disability Screening 1999 Family Planning (PISQ) 2014 Pneumococcal Vaccine: Pediatrics (0 to 5 Years) and At-Risk Patients (6 to 49) Years (1 of 2 - PCV) 2018 07/02/2000, 05/02/2000 HPV/Cotest 09/17/2024 COVID-19 Vaccine ( season) 2025 Influenza Vaccine (#1) 2025 07/26/2006 [...] Vaccine Completed 09/22/2015, 011 HIV Screening Completed 03/29/2025, 08/2024, 07/24/2022 Hepatitis C Screening Completed 03/29/2025 , 12/01/2024, 07/24/2022 Meningococcal B Vaccine Aged Out No l onger eligible based on patient's age to complete this topic RSV under 20 months Aged Out No longe r eligible based on patient's age to complete this topic Procedures Procedure Name Priority Date/Time Associated Diagnosis Comments HEPATITIS A ANTIBODY, TOTAL Routine 03/29/2025 1:51 PM EDT T-SPOT(R).TB Routine 03/29/2025 1:51 PM EDT FERRITIN Routine 03/29/2025 1:51 PM EDT IRON AND TOTAL IRON BINDING CAPACITY Routine 03/29/2025 1:51 PM EDT COMPREHENSIVE METABOLIC PANEL Routine 03/29/2025 1:51 PM EDT CBC WITH AUTO DIFFERENTIAL Routine 03/29/2025 1:51 PM EDT SST GOLD TOP TO HOLD Routine 03/29/2025 1:51 PM EDT HEPATITIS C AB W/REFL TO HCV RNA, QN, PCR Routine 03/29/2025 1:51 PM EDT Opioid dependence, uncomplicated (CMS/HCC) HIV 1/2 ANTIGEN/ANTIBODY, FOURTH GENERATION W/RFL Routine 03/29/2025 1:51 PM EDT Opioid dependence, uncomplicated (CMS/HCC) SYPHILIS SCREEN Routine 03/29/2025 1:51 PM EDT Opioid dependence, uncomplicated (CMS/HCC) HEPATITIS B SURFACE ANTIGEN, EIA Routine 03/29/2025 1:51 PM EDT Opioid dependence, uncomplicated (CMS/HCC) HEPATITIS B SURFACE ANTIBODY, QUALITATIVE Routine 03/29/2025 1:51 PM EDT Opioid dependence, uncomplicated (CMS/HCC) HEPATITIS B CORE AB TOTAL Routine 03/29/2025 1:51 PM EDT Opioid dependence, uncomplicated (CMS/HCC) POCT MADDISON-14 URINE DRUG SCREEN Routine 02/02/2025 9:05 AM EDT Migraine without status migrainosus, not intractable, unspecified migraine type HM PAP/HPV Routine 09/18/2023 12:00 AM EDT LIPID PANEL, STANDARD Routine 12/26/2020 1:46 PM EDT from Last 3 Months or Most Recently Relevant to Health Maintenance Results * Syphilis Screen (03/29/2025 1:51 PM EDT) Syphilis Screen Nonreactive Nonreactive [facility] Blood 03/29/2025 1:51 PM EDT 03/29/2025 4:05 PM EDT Blake Enciso MD LAB BLOOD ORDERABLES Final Resul t Performing Organization Address City/[facility]/ZIP Co de Phone Number [facility] [address] [place] [address] [phone] * SST GOLD TOP TO HOLD (03/29/2025 1:51 PM EDT) [facility] Hold Gold See Note [facility] Comment:Specimen held untest ed for 24 hours; Call to requestChemistry testing. 03/29/2025 1:51 PM EDT 03/29/2025 4:05 PM EDT Generic External Data Provider LAB BLOOD ORDERAB LES Final Result Performing Organization Address [facility]/ZIP Co de Phone Number [facility] [address] [place] [phone] * T-SPOT??.TB (03/29/2025 1:51 PM EDT) [facility] T Spot TB Negative Negative [facility] Comment:A negative test resu lt does not exclude the possibilityof exposure to or infection with Mycobacteriumtuberculosis (M. tuberculosis). Patients with recentexposure to TB infected individuals exhibiting anegative T-SPOT.TB result should be considered forretesting within 6 weeks or if other relevant clinicalsymptoms indicate. Results from T-SPOT.TB testing mustbe used in conjunction with each individual'sepidemiological history, current medical status,and results of other diagnostic evaluations.The T-SPOT.TB test is qualitative and results arereported as positive, borderline, or negative, giventhat the test controls perform as expected. In linewith the Centers for Disease Control and Prevention's2010 recommendation to report quantitative measurementsalongside the qualitative result, the laboratoryprovides spot counts for informational purposes only.The T-SPOT.TB test should not be interpreted as aquantitative test. TS PANEL A 0 [facility] TS PANEL B 0 [facility] Negative Control Passed [facility] Positive Control Passed [facility] Comment:For additional infor matchina, please refer tohttp://education.[employer]/faq/UWA627(This link is being provided for informational/educational purposes only.)THIS TEST WAS PERFORMED AT:[employer] [id number] [place] [id number] PRETTY MD,PHD 03/29/2025 1:51 PM EDT 03/29/2025 4:05 PM EDT us Blake Enciso MD LAB BLOOD ORDERABLES Final Resul t [facility] [address] [place] [phone] [phone] * (ABNORMAL) CBC auto differential (03/29/2025 1:51 PM EDT) White Blood Count 5.2 4.8 - 10.8 X10*3/uL [facility] Red Blood Count 4.57 4.20 - 5.50 X10*6/uL [facility] Hemoglobin 12.5 12.0 - 16.0 g/dl [facility] Hematocrit 37.8 37.0 - 47.0 % [facility] Mean Corpuscular Volume 82.7 80.0 - 98.0 fL [facility] Mean Corpuscular Hemoglobin 27.4 27.0 - 33.0 pg [facility] Mean Corpuscular HGB Conc 33.1 31.0 - 35.0 g/dl [facility] Red Cell Distribution Width 16.3(H) 11.0 - 16.0 % [facility] Platelet Count 313 160 - 400 X10*3/uL [facility] Mean Platelet Volume 10.4 9.4 - 12.3 fL [facility] Neutrophils Percent Auto 55.8 45 - 73 % [facility] Imm Gran Pct Auto 0.4 0.0 - 0.4 % [facility] Lymphocytes Percent Auto 35.0 20 - 40 % [facility] Monocytes Percent Auto 6.7 2 - 11 % [facility] Eosinophils Percent Auto 1.7 0 - 4 % [facility] Basophils Percent Auto 0.4 0 - 2 % [facility] NRBC Pct Auto 0.0 0.0 - 0.2 /100WBC [facility] Neutrophils Absolute Auto 2.9 2.0 - 8.3 x10*3/uL [facility] Imm Gran Abs Auto 0.02 0.00 - 0.03 X10*3/uL [facility] Lymphocytes Absolute Auto 1.8 1.2 - 4.9 X10*3/uL [facility] Monocytes Absolute Auto 0.4 0.1 - 1.2 X10*3/uL [facility] Eosinophils Absolute Auto 0.1 0.0 - 0.4 X10*3/uL [facility] Basophils Absolute Auto 0.0 0.0 - 0.2 X10*3/uL [facility] NRBC Abs Auto 0.000 0.0 - 0.012 X10*3/uL [facility] 03/29/2025 1:51 PM EDT 03/29/2025 4:05 PM EDT us Generic External Data Provider LAB BLOOD ORDERAB LES Final Result [facility] [address] [place] [phone] * Hepatitis C Antibody with Reflex to HCV, RNA, Quantitative, Real-Time PCR (03/29/2025 1:51 PM EDT) Pathologist [facility] [place] Hepatitis C Antibody Nonreactive Nonreactive [facility] Comment:Antibodies to HCV no t detected; does not exclude early acuteHCV infection. Blood Venous blood specimen / Unknown 03/29/2025 1:51 PM EDT 03/29/2025 4:05 PM EDT Blake Enciso MD LAB BLOOD ORDERABLES Final Resul t Performing Organization Address [facility] de Phone Number [facility] [address] [place] [phone] * Iron And Total Iron Binding Capacity (03/29/2025 1:51 PM EDT) [facility] Iron 69 30 - 160 mcg/dL [facility] Total Iron Binding Capacity 269 228 - 428 mcg/dL [facility] Percent Iron Saturation 26 15 - 50 % [facility] Unsaturated Iron Binding 200 ug/dL [facility] 03/29/2025 1:51 PM EDT 03/29/2025 4:05 PM EDT [employer] External Data Provider LAB BLOOD ORDERAB LES Final Result Performing Organization Address [facility] Number [facility] [address] [place] [address] [phone] * Hepatitis A Antibody, Total (03/29/2025 1:51 PM EDT) [facility] Hepatitis A Antibody IgG REACTIVE Nonreactive [facility] Comment:The presence of IgG anti-HAV implies past HAV infection(recent or distant) or vaccination against HAV. 03/29/2025 1:51 PM EDT 03/29/2025 4:05 PM EDT Blake Enciso MD LAB BLOOD ORDERABLES Final Resul t Performing Organization Address [facility] Co de Phone Number [facility] [address] [place] [address] [phone] * Hepatitis B surface antigen, EIA (03/29/2025 1:51 PM EDT) Pathologist [facility] [place] Hepatitis B Surface Ag Negative Negative [facility] Blood Venous blood specimen / Unknown 03/29/2025 1:51 PM EDT 03/29/2025 4:05 PM EDT us Blake Enciso MD LAB BLOOD ORDERABLES Final Resul t Performing Organization Address City/[facility]/ZIP Co de Phone Number [facility] [address] [place] [address] [phone] * Hepatitis B Core Antibody, Total (03/29/2025 1:51 PM EDT) Pathologist [facility] [place] Hepatitis B Core Antibody Nonreactive Nonreactive [facility] Blood Venous blood specimen / Unknown 03/29/2025 1:51 PM EDT 03/29/2025 4:05 PM EDT us Blake Enciso MD LAB BLOOD ORDERABLES Final Resul t Performing Organization Address [facility] Co de Phone Number [facility] [address] [place] [phone] * HIV-1/2 Antigen and Antibodies, Fourth Generation, with Reflexes (03/29/2025 1:51 PM EDT) Pathologist [facility] [place] HIV AB/AG Nonreactive Nonreactive [facility] Comment:HIV-1 p24 Ag and/or HIV-1/HIV-2 Ab not detected.A test result that is nonreactive does not exclude thepossibility of exposure to or infection with HIV-1 and/orHIV-2. Nonreactive results in this assay for individualswith prior exposure to HIV-1 and/or HIV-2 may be due toantigen and antibody levels that are below the limit ofdetection of this assay.The [employer] HIV Ag/Ab Combo assay result andsupplemental assay results should be interpreted inconjunction with the patient's clinical presentation,history and other laboratory results. If the results areinconsistent with clinical evidence, additional testing issuggested to confirm the result. Blood Venous blood specimen / Unknown 03/29/2025 1:51 PM EDT 03/29/2025 4:05 PM EDT Blake Enciso MD LAB BLOOD ORDERABLES Final Resul t Performing Organization Address [facility] de Phone Number [facility] [address] [place] [address] [phone] * Hepatitis B Surface Antibody, Qualitative (03/29/2025 1:51 PM EDT) Pathologist [facility] [place] ~Hepatitis B Surface Antibody REACTIVE Nonreactive [facility] Comment:REACTIVE: > 11.99 m IU/mL Blood Venous blood specimen / Unknown 03/29/2025 1:51 PM EDT 03/29/2025 4:05 PM EDT Blake Enciso MD LAB BLOOD ORDERABLES Final Resul t Performing Organization Address [facility] de Phone Number [facility] [address] [place] [address] [phone] * Ferritin (03/29/2025 1:51 PM EDT) Pathologist [facility] [place] Ferritin 50 10 - 122 ng/mL [facility] 03/29/2025 1:51 PM EDT 03/29/2025 4:05 PM EDT Generic External Data Provider LAB BLOOD ORDERAB LES Final Result Performing Organization Address [facility] de Phone Number [facility] [address] [place] [address] [phone] * (ABNORMAL) Comprehensive Metabolic Panel (03/29/2025 1:51 PM EDT) [facility] Sodium 140 135 - 145 mmol/L [facility] Potassium 3.7 3.3 - 5.1 mmol/L [facility] Chloride 105 96 - 108 mmol/L [facility] Carbon Dioxide 27 22 - 29 mmol/L [facility] Anion Gap 12 12 - 20 [facility] Urea Nitrogen (BUN) 10 9 - 16 mg/dL [facility] Creatinine, Serum 0.56 0.5 - 1.4 mg/dL [facility] Estimated Glomerular Filt Rate >60 [facility] Comment:Chronic Kidney Disea se: Estimated GFR < 60 mL/min/[id number] Kidney Disease: Estimated GFR < 15 mL/min/1.73m2 Glucose 93 60 - 115 mg/dL [facility] Calcium 9.2 8.4 - 10.2 mg/dL [facility] Bilirubin, Total 0.2 0.0 - 1.0 mg/dL [facility] Aspartate Amino Transferase 60(H) 5 - 31 U/L [facility] Alanine Aminotransferase 87(H) 0 - 31 U/L [facility] Total Protein 7.4 6.5 - 8.0 g/dL [facility] Albumin Level 4.5 3.5 - 5.0 g/dL [facility] Alkaline Phosphatase 56 39 - 117 U/L [facility] 03/29/2025 1:51 PM EDT 03/29/2025 4:05 PM EDT us Generic External Data Provider LAB BLOOD ORDERAB LES Final Result [facility] [address] [place] [address] [phone] * (ABNORMAL) POCT MADDISON-14 Urine Drug Screen (02/02/2025 9:05 AM EDT) THC Negative Negative Cocaine Screen, Urine Negative [...] TEST ENTER/EDIT OR DERABLES Final Result * (ABNORMAL) HM PAP/HPV (09/18/2023 12:00 AM EDT) Pap Smear 4. LSIL(A) 1. NILM Jennifer Hong MD HEALTH MAINTENANCE Edited Result - Final * (ABNORMAL) LIPID PANEL, STANDARD (12/26/2020 1:46 PM EDT) Chol/HDLC Ratio 2.7 <5.0 (calc) [facility] Cholesterol, Total 110 <200 mg/dL [facility] HDL Cholesterol 41(L) > OR = 50 mg/dL [facility] LDL Cholesterol 52 mg/dL (calc) [facility] Comment: Reference range: <100 Desirable range <100 mg/dL for primary prevention; <70 mg/dL for patients with CHD or diabetic patients with > or = 2 CHD risk factors. LDL-C is now calculated using the Socrates-Pace calculation, which is a validated novel method providing better accuracy than the Friedewald equation in the estimation of LDL-C. Socrates SS et al. SHELBY. 2013;310(19): 2667-3020 (http://education.[employer]/faq/MMZ358) Non-HDL Cholesterol 69 <130 mg/dL (calc) [facility] Comment: For patients with diabetes plus 1 major ASCVD risk factor, treating to a non-HDL-C goal of <100 mg/dL (LDL-C of <70 mg/dL) is considered a therapeutic option. Triglycerides 90 <150 mg/dL [facility] 12/26/2020 1:46 PM EDT Hollie Martines [employer] LAB BLOOD ORDERABLES Final Result [facility] [address] from Last 3 Months or Most Recently Relevant to Health Maintenance Insurance [id number]
--- OUTSIDE RECORDS SUMMARY | 2025-04-06 15:20 | XMS_ITS | Encounter Summary ---
Author Organization [employer] Address [address] [place] [address] Care Team Providers Care Laundrette Owner Name Role Phone Unavailable Primary Care Provider Unavailabl e Encounter Details Date Type Department Care Team (Late st Contact Info) Description 08/10/[address] [facility] [address] [place] [address] Slime Deluna RN Opioid dependence, uncomplicated (CMS/HCC) [...] 05/24/2025 1:45 PM EST Office Visit [facility] [address] [place], [place] [phone] Blake Enciso MD [address] [place] [address] Scheduled Orders Name Type Priority Associated Diagnoses [...]
--- OUTSIDE RECORDS SUMMARY | 2025-04-06 15:20 | XMS_ITS | Encounter Summary ---
Author Organization [employer] Address [address] [facility] 7t [place] [address] Care Team Providers Care Product Inspection Coordinator Name Role Phone Unavailable Primary Care Provider Unavailabl e Reason for Visit * Reason Onset Date Comments Med Refill 06/21/2024 Encounter Details Date Type Department Care Team ([facility] st Contact Info) Description 06/21/2024 Refill [facility] MED[facility]INE [address] [place] [address] Blake Enciso MD 230 [place] [address] Opioid type dependence, continuous (CMS/HCC) Social History [...] Description 05/24/2025 1:45 PM EST Office Visit [facility] MED[facility]INE [address] [place] [address] Blake Enciso MD [address] [place] [address] documented as of this encounter Visit Diagnoses Diagnosis Opioid type dependence, continuous (CMS/HCC) ([facility]) Opioid type dependence, continuous documented in this encounter Additional Health Concerns Assessment Noted Time PHQ-9 Depression Total Score: 15 024 8:21 AM EST documented as of this encounter
--- OUTSIDE RECORDS SUMMARY | 2025-04-06 15:20 | XMS_ITS | Encounter Summary ---
Author Organization [employer] Address [address] [facility] [address] 7[address] [place] [address] Care Team Providers Care Senior Consumer Insights Consultant Name Role Phone Unavailable Primary Care Provider Unavailabl e Encounter Details Date Type Department Care Team ([facility] st Contact Info) Description 06/15/2024 Orders Only [facility] MEDICINE [address] [place] [address] Radha Catalan Social History Tobacco Use Types [...] Description 05/24/2025 1:45 PM EST Office Visit [facility] [address] [place] [address] Blake Enciso MD 230 [place] [address] documented as of this encounter Procedures Procedure Name Priority Date/Time Associated Diagnosis Comments PAP/HPV Routine 09/18/2023 12:00 AM EDT documented in this encounter Results * (ABNORMAL) HM PAP/HPV (09/18/2023 12:00 AM EDT) Pap Smear 4. LSIL(A) 1. NILM Historical Provider HEALTH MAINTENANCE Edited Result - Final documented in this encounter Visit Diagnoses Not on filedocumented in this encounter Additional Health Concerns Assessment Noted Time PHQ-9 Depression Total Score: 15 024 8:21 AM EST documented as of this encounter
--- OUTSIDE RECORDS SUMMARY | 2025-04-06 15:20 | XMS_ITS | Encounter Summary ---
Author Organization [employer] Address [address] [facility] [address] 7[address] [place] [address] Care Team Providers Care Landscaping Specialist Name Role Phone Unavailable Primary Care Provider Unavailabl e Encounter Details Date Type Department Care Team (Late st Contact Info) Description 08/10/2024 Orders Only [facility] MEDICINE [address] [place] [address] Slime Deluna RN Opioid dependence, uncomplicated (CMS/HCC) [...] Description 05/24/2025 1:45 PM EST Office Visit [facility] MED[facility]INE [address] [place] [address] Blake Enciso MD [address] [place] [address] documented as of this encounter Visit Diagnoses Diagnosis Opioid dependence, uncomplicated (CMS/HCC) (HCC) documented in this encounter Additional Health Concerns Assessment Noted Time PHQ-9 Depression Total Score: 15 024 8:21 AM EST documented as of this encounter
--- OUTSIDE RECORDS SUMMARY | 2025-04-06 15:20 | XMS_ITS | Encounter Summary ---
Author Organization [employer] Address [address] [facility] 7t [place] [address] Care Team Providers Care Roll Coverer Name Role Phone Unavailable Primary Care Provider Unavailabl e Reason for Visit * Reason Onset Date Comments Med Refill 06/21/2024 Encounter Details Date Type Department Care Team ([facility] st Contact Info) Description 06/21/2024 Refill [facility] MED[facility]INE [address] [place], [place] [phone] Hanna Mills MD 230 [place], [place] [phone] Social History Tobacco Use Types Packs/Day Years [...] Description 05/24/2025 1:45 PM EST Office Visit [facility] [address] [place] [address] Blake Enciso MD 230 [place] [address] documented as of this encounter Visit Diagnoses Not on filedocumented in this encounter Additional Health Concerns Assessment Noted Time PHQ-9 Depression Total Score: 15 024 8:21 AM EST documented as of this encounter
--- OUTSIDE RECORDS SUMMARY | 2025-04-06 15:20 | XMS_ITS | Encounter Summary ---
Author Organization [employer] Address [address] [facility] 7t [place] [address] Care Team Providers Care Pricing Clerk Name Role Phone Unavailable Primary Care Provider Unavailabl e Reason for Visit * Reason Comments Med Refill Encounter Details Date Type Department Care Team ([facility] st Contact Info) Description 09/16/2023 Refill [facility] MEDICINE 230 [place], [place] [phone] Blake Enciso MD 230 [place], [place] [phone] Uncomplicated opioid dependence (CMS/HCC) Social History Tobacco [...] Description 05/24/2025 1:45 PM EST Office Visit [facility] MEDICINE [address] [place] [address] Blake Enciso MD [address] [place] [address] documented as of this encounter Visit Diagnoses Diagnosis Uncomplicated opioid dependence (CMS/HCC) (HCC) documented in this encounter Additional Health Concerns Assessment Noted Time PHQ-9 Depression Total Score: 11 023 11:56 AM EDT documented as of this encounter
--- OUTSIDE RECORDS SUMMARY | 2025-04-06 15:20 | XMS_ITS | Encounter Summary ---
Author Organization [employer] Address [address] [facility] [address] 7[address] [place] [address] Care Team Providers Care Executive Casino Host Name Role Phone Unavailable Primary Care Provider Unavailabl e Encounter Details Date Type Department Care Team (Late st Contact Info) Description 11/26/2023 Orders Only [facility] 230 [place], [place] [phone] Blake Enciso MD [address] [place], [place] [phone] Social History Tobacco Use Types Packs/Day Years [...] t he electric, gas, oil or water [employer] threatened to shut off services in your [...] Description 05/24/2025 1:45 PM EST Office Visit [facility] MED[facility]INE 230 [place] [address] Blake Enciso MD [address] [place] [address] documented as of this encounter Visit Diagnoses Not on filedocumented in this encounter Additional Health Concerns Assessment Noted Time PHQ-9 Depression Total Score: 11 023 11:56 AM EDT documented as of this encounter
--- OUTSIDE RECORDS SUMMARY | 2025-04-06 15:20 | XMS_ITS | Encounter Summary ---
Author Organization [employer] Address [address] [facility] [address] 7[address] [place] [address] Care Team Providers Care Supply Tech Name Role Phone Unavailable Primary Care Provider Unavailabl e Encounter Details Date Type Department Care Team ([facility] st Contact Info) Description 07/21/2024 Orders Only [facility] [address] [place], [place] [phone] Blake Enciso MD [address] [place] [address] Social History Tobacco Use Types Packs/Day Years [...] Description 05/24/2025 1:45 PM EST Office Visit [facility] MEDICINE [address] [place] [address] Blake Enciso MD [address] [place] [address] documented as of this encounter Visit Diagnoses Not on filedocumented in this encounter Additional Health Concerns Assessment Noted Time PHQ-9 Depression Total Score: 15 024 8:21 AM EST documented as of this encounter
--- OUTSIDE RECORDS SUMMARY | 2025-04-06 15:20 | XMS_ITS | Encounter Summary ---
Author Organization [employer] Address [address] [facility] [address] 7[address] [place] [address] Care Team Providers Care Jewelry Racker Name Role Phone Unavailable Primary Care Provider Unavailabl e Encounter Details Date Type Department Care Team ([facility] st Contact Info) Description 08/12/2024 Orders Only [facility] 230 [place] [address] Blake Enciso MD [address] [place] [address] Social History Tobacco Use Types Packs/Day Years [...] Description 05/24/2025 1:45 PM EST Office Visit [facility] MEDICINE [address] [place] [address] Blake Enciso MD [address] [place] [address] documented as of this encounter Visit Diagnoses Not on filedocumented in this encounter Additional Health Concerns Assessment Noted Time PHQ-9 Depression Total Score: 15 024 8:21 AM EST documented as of this encounter
--- OUTSIDE RECORDS SUMMARY | 2025-04-06 15:21 | XMS_ITS | Encounter Summary ---
Author Organization [employer] Address [address] [facility] 7t [place] [address] Care Team Providers Care Volleyball Assembler Name Role Phone Unavailable Primary Care Provider Unavailabl e Reason for Visit * Reason Onset Date Comments Med Refill 11/02/2022 Encounter Details Date Type Department Care Team ([facility] st Contact Info) Description 11/02/2022 Telephone [facility] MEDICINE [address] [place] [address] Hanna Mills MD [address] [place] [address] Med Refill Social History Tobacco Use Types [...] MG immediate release tablet Please sent to [facility]/pharmacy #[id number] - [place], [place] - [phone] [facility] documented in this encounter Plan of Treatment Upcoming Encounters Date Type Department Care Team (Late st Contact Info) Description 05/24/2025 1:45 PM EST Office Visit [facility] MEDICINE 230 [place], [place] [phone] Blake Enciso MD 230 [place], [place] [phone] documented as of this encounter Visit Diagnoses Not on filedocumented in this encounter Additional Health Concerns Assessment Noted Time PHQ-9 Depression Total Score: 5 07/23/19 23 3:04 PM EST documented as of this encounter
--- OUTSIDE RECORDS SUMMARY | 2025-04-06 15:21 | XMS_ITS | Encounter Summary ---
Author Organization [employer] Address [address] [facility] [address] 7t [place] [address] Care Team Providers Care Data Processing Control Clerk Name Role Phone Unavailable Primary Care Provider Unavailabl e Encounter Details Date Type Department Care Team ([facility] st Contact Info) Description 06/12/2024 Orders Only [facility] 230 [place] [address] Blake Enciso MD 230 [place] [address] Social History Tobacco Use Types Packs/Day Years [...] Author Several days 06/12/2024 8:21 AM Susanna eL * Trouble concentrating on things, such as [...] Description 05/24/2025 1:45 PM EST Office Visit [facility] MED[facility]INE 230 [place] [address] Blake Enciso MD [address] [place] [address] documented as of this encounter Visit Diagnoses Not on filedocumented in this encounter Additional Health Concerns Assessment Noted Time PHQ-9 Depression Total Score: 15 024 8:21 AM EST documented as of this encounter
--- OUTSIDE RECORDS SUMMARY | 2025-04-06 15:21 | XMS_ITS | Encounter Summary ---
Author Organization [employer] Address 75 [facility] 7t [place] [address] Care Team Providers Care Delinquency Prevention Officer Name Role Phone Unavailable Primary Care Provider Unavailabl e Encounter Details Date Type Department Care Team (Late Contact Info) Description 01/11/2023 Abstract [facility] MEDICINE [address] [place] [address] [phone] Hanna Mills MD 230 [place], [place] [phone] Social History Tobacco Use Types Packs/Day Years [...] Encounters Date Type Department Care Team (Late Contact Info) Description 05/24/2025 1:45 PM EST Office Visit [facility] MEDICINE [address] [place] [address] [phone] Blake Enciso MD 230 [place] [address] documented as of this encounter Procedures Procedure Name Priority Date/Time Associated Diagnosis Comments PAP/HPV Routine 11/01/2020 documented in this encounter Results * Pap Smear (11/01/2020) Pap Negative for intraephithelial lesion or malignancy Negative for intraephithelial lesion or malignancy, Other 11/01/2020 [facility] External Provider HEALTH MAINTENANCE Final Result documented in this encounter Visit Diagnoses Not on filedocumented in this encounter Additional Health Concerns Assessment Noted Time PHQ-9 Depression Total Score: 5 07/23/19 23 3:04 PM EST documented as of this encounter
--- OUTSIDE RECORDS SUMMARY | 2025-04-06 15:21 | XMS_ITS | Encounter Summary ---
Author Organization [employer] Address [address] [facility] 7t [place] [address] Care Team Providers Care Travel Information Center Supervisor Name Role Phone Unavailable Primary Care Provider Unavailabl e Encounter Details Date Type Department Care Team ([facility] st Contact Info) Description 08/29/2022 Telephone [facility] MEDICINE 230 [place], [place] [phone] Hanna Mills MD 230 [place], [place] [phone] Social History Tobacco Use Types Packs/Day Years [...] Description 05/24/2025 1:45 PM EST Office Visit [facility] MEDICINE [address] [place], [place] [phone] Blake Enciso MD 230 [place] [address] documented as of this encounter Visit Diagnoses Not on filedocumented in this encounter Additional Health Concerns Assessment Noted Time PHQ-9 Depression Total Score: 5 07/23/19 23 3:04 PM EST documented as of this encounter
--- OUTSIDE RECORDS SUMMARY | 2025-04-06 15:21 | XMS_ITS | Encounter Summary ---
Author Organization [employer] Address [address] [facility] 7t [place] [address] Care Team Providers Care Supervisor Air Conditioning Installer Name Role Phone Unavailable Primary Care Provider Unavailabl e Encounter Details Date Type Department Care Team ([facility] Contact Info) Description 07/25/2022 Orders Only [facility] MEDICINE [address] [place] [address] [phone] Hanna Mills MD [address] [place] [address] [phone] Iron deficiency anemia due to chronic blood [...] Upcoming Encounters Date Type Department Care Team ([facility] Contact Info) Description 05/24/2025 1:45 PM EST Office Visit [facility] MEDICINE [address] [place] [phone] Blake Enciso MD 230 [facility] [place] [address] documented as of this encounter Visit Diagnoses Diagnosis Iron deficiency anemia due to chronic 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
--- OUTSIDE RECORDS SUMMARY | 2025-04-06 15:21 | XMS_ITS | Encounter Summary ---
Author Organization [employer] Address 75 [facility] 7t [place] [address] Care Team Providers Care Wall Cleaner Name Role Phone Unavailable Primary Care Provider Unavailabl e Encounter Details Date Type Department Care Team ([facility] Contact Info) Description 11/21/2022 Telephone [facility] MEDICINE [address] [place] [address] [phone] Hanna Mills MD [address] [place] [address] [phone] Social History Tobacco Use Types Packs/Day Years [...] Upcoming Encounters Date Type Department Care Team ([facility] Contact Info) Description 05/24/2025 1:45 PM EST Office Visit [facility] MEDICINE [address] [place] [address] [phone] Blake Enciso MD 230 [place] [address] documented as of this encounter Visit Diagnoses Not on filedocumented in this encounter Additional Health Concerns Assessment Noted Time PHQ-9 Depression Total Score: 5 07/23/19 23 3:04 PM EST documented as of this encounter
--- OUTSIDE RECORDS SUMMARY | 2025-04-06 15:21 | XMS_ITS | Encounter Summary ---
Author Organization [employer] Address 75 [facility] 7t [place] [address] Care Team Providers Care Parent Educator Name Role Phone Unavailable Primary Care Provider Unavailabl e Encounter Details Date Type Department Care Team ([facility] Contact Info) Description 09/25/2022 Orders Only [facility] MEDICINE [address] [place] [address] [phone] Hanna Mills MD [address] [place] [address] [phone] 8 weeks gestation of (Primary Dx) Social [...] Description 05/24/2025 1:45 PM EST Office Visit [facility] MEDICINE [address] [place] [address] [phone] Blake Enciso MD 230 [place] [address] documented as of this encounter Visit Diagnoses Diagnosis 8 weeks gestation of - Primary documented in this encounter Additional Health Concerns Assessment Noted Time PHQ-9 Depression Total Score: 5 07/23/19 23 3:04 PM EST documented as of this encounter
--- OUTSIDE RECORDS SUMMARY | 2025-04-06 15:21 | XMS_ITS | Encounter Summary ---
Author Organization [employer] Address 75 [facility] 7t [place] [address] Care Team Providers Care Turntable Operator Name Role Phone Unavailable Primary Care Provider Unavailabl e Reason for Visit * Reason Comments Med Refill Encounter Details Date Type Department Care Team ([facility] st Contact Info) Description 06/19/2024 Refill [facility] MEDICINE 230 [place] [address] Blake Enciso MD 230 [place], [place] [phone] Opioid type dependence, continuous (CMS/HCC) Social History [...] Description 05/24/2025 1:45 PM EST Office Visit [facility] MEDICINE [address] [place] [address] Blake Enciso MD [address] [place] [address] documented as of this encounter Visit Diagnoses Diagnosis Opioid type dependence, continuous (CMS/HCC) (HCC) Opioid type dependence, continuous documented in this encounter Additional Health Concerns Assessment Noted Time PHQ-9 Depression Total Score: 15 024 8:21 AM EST documented as of this encounter
--- OUTSIDE RECORDS SUMMARY | 2025-04-06 15:21 | XMS_ITS | Encounter Summary ---
Author Organization [employer] Address [address] [facility] 7t [place] [address] Care Team Providers Care Snath Handle Assembler Name Role Phone Unavailable Primary Care Provider Unavailabl e Reason for Visit * Reason Onset Date Comments No Show 04/05/2025 Encounter Details Date Type Department Care Team ([facility] st Contact Info) Description 04/05/2025 Telephone [facility] MEDICINE 230 [place], [place] [phone] Ivet Nelson MD 230 [place] [address] No Show Social History Tobacco Use Types Packs/Day Years [...] encounter Miscellaneous Notes * Telephone Encounter - Elva Rocha - 04/05/2025 10:19 AM EDT Pt no showed to appointment on 04/05/25 new patient appointment. documented in this encounter Plan of Treatment Upcoming Encounters Date Type Department Care Team (Late st Contact Info) Description 05/24/2025 1:45 PM EST Office Visit [facility] MED[facility]INE [address] [place] [address] Blake Enciso MD [address] [place] [address] documented as of this encounter Visit Diagnoses Not on filedocumented in this encounter Additional Health Concerns Assessment Noted Time PHQ-9 Depression Total Score: 2 02/11/20 3:28 PM EDT documented as of this encounter
== END 2025-04-06 12:28 | disposition home or self-care (01) ==
LOC: HO.US 12:27
PROVIDERS: Visit Provider Obstetrics & Gynecology
DX: N93.9 Abnormal uterine and vaginal bleeding, unspecified (principal)
CPT/HCPCS: 76830; 76856

== ENCOUNTER → 2025-04-06 12:29 | Outpatient (BNV) | payer MEDICAID, SELFPAY | PROVIDERS: Visit Provider Radiology Diagnostic Radiology | DX: N93.9 Abnormal uterine and vaginal bleeding, unspecified (principal) | CPT/HCPCS: 76830; 76856 ==

== ENCOUNTER 2025-05-05 09:53 | Outpatient (AMB) | payer MEDICAID, SELFPAY ==
--- NOTE | 2025-05-05 10:19 | A.OFFVIS_ITS ---
Vital Signs 05/05/25 10:22 Height 5 ft 2 in Weight 136 lb BMI 24.9 Intake Visit Reasons: vaginal odor General Manager In Training Required: No Information Interpreted: non-clinical & clinical Radius Corner Machine Operator: Radius Corner Machine Operator Present (Leandra Sue TUYETSamantha) Accompanied by: Self / Same As Patient Allergies fluoxetine (From PROZAC) Allergy (Unknown, Verified 05/05/25 10:22) HIVES penicillin V Allergy (Unknown, Verified 05/05/25 10:22) hives ferrous sulfate Adverse Reaction (Verified 05/05/25 10:22) Stomach Upset HPI Comments Details: The patient is presenting complaining of vaginal discharge associated with foul odor, no other associated symptoms, vaginal itching or any other complaint PFSH Medical History Migraine with aura External hemorrhoids with complication Surgical History History of Family History Maternal Grandmother Colon cancer Social History Household Members: Children Housing: House Are you a primary healthcare associate to a significant other at home: No Do you presently have visiting nurse or other home services: No Patient Tobacco Use Status: Never used Tobacco Second Hand Smoke Exposure: No service: No Current occupational status: unemployed Review of Systems Const All systems reviewed & are unremarkable except as noted in HPI and below Physical Exam General: Yes no CVA tenderness External Female Exam: normal external appearance and normal appearance of the urethra Speculum Exam - Vagina: normal appearance of the vagina, normal palpation, no lesions and no masses Speculum Exam - Cervix: normal appearance of the cervix, normal palpation, no lesions, no masses and nontender Bimanual exam- vagina & uterus: normal bimanual exam, normal palpation, uterine size normal, normal palpation, uterine shape normal, No Cervical tenderness present and non-tender Bimanual Exam- Adnexa, other: normal adnexae Back/Spine/Pelvis Back: no CVA tenderness Assessment & Plan Assessment & Plan (1) Bacterial vaginosis: Code(s): N76.0 - Acute vaginitis; B96.89 - Other specified bacterial agents as the cause of diseases classified elsewhere Category: Medical Plan: GC and chlamydia cultures with BV panel taken. Will treat with Flagyl 500 mg p.o. b.i.d. x 7 days, Instructions given to the patient to refrain from sexual activity or to use condoms consistently and correctly during the BV treatment regimen, not to douch, it might increase the risk for relapse, and to call if symptoms persist or recur. Medications: New metronidazole 500 mg PO BID 14 tabs 0RF 7 days Coding Level of Care Code Est Pt Level 3 (69433) Diagnoses Bacterial vaginosis N76.0; B96.89
[2025-05-05 10:22] VITALS: BMI 24.9
--- OUTSIDE RECORDS SUMMARY | 2025-05-05 11:13 | XMS_ITS | Clinical Summary ---
Author Organization [facility] Address [address] [place] [address] Care Team Providers Care Rehab Assistant Name Role Phone Unavailable Primary Care Provider [...]
--- OUTSIDE RECORDS SUMMARY | 2025-05-05 11:13 | XMS_ITS | Encounter Summary ---
Author Organization [email or web address] Address [address] [place] [address] Care Team Providers Care Citrix Lead Name Role Phone Unavailable Primary Care Provider Unavailabl e Encounter Details Date Type Department Care Team (Late Contact Info) Description 01/11/2023 Abstract [facility] [address] [place] [address] [phone] Hanna Mills MD [address] [place], [place] [phone] Social History Tobacco Use Types Packs/Day Years [...] Department Care Team (Late Contact Info) Description 05/25/2025 1:30 PM EST Office Visit [facility] [address] [place] [address] [phone] Blake Enciso MD [address] [place] [address] documented as of this encounter Procedures Procedure Name Priority Date/Time Associated Diagnosis Comments PAP/HPV Routine 11/01/2020 documented in this encounter Results * Pap Smear (11/01/2020) Pap Negative for intraephithelial lesion or malignancy Negative for intraephithelial lesion or malignancy, Other 11/01/2020 [facility] External Provider HEALTH MAINTENANCE Final Result documented in this encounter Visit Diagnoses Not on filedocumented in this encounter Additional Health Concerns Assessment Noted Time PHQ-9 Depression Total Score: 5 07/23/19 23 3:04 PM EST documented as of this encounter
--- OUTSIDE RECORDS SUMMARY | 2025-05-05 11:13 | XMS_ITS | Encounter Summary ---
Author Organization [employer] Address [address] [place] [address] Care Team Providers Care Division Commander Name Role Phone Unavailable Primary Care Provider Unavailabl e Encounter Details Date Type Department Care Team ([facility] st Contact Info) Description 06/12/2024 Orders Only [facility] [address] [place] [address] Blake Enciso MD [address] [place] [address] Social History Tobacco Use Types Packs/Day Years [...] Care Team (Late st Contact Info) Description 05/25/2025 1:30 PM EST Office Visit [facility] [address] [place] [address] Blake Enciso MD [address] [place] [address] documented as of this encounter Visit Diagnoses Not on filedocumented in this encounter Additional Health Concerns Assessment Noted Time PHQ-9 Depression Total Score: 024 8:21 AM EST documented as of this encounter
--- OUTSIDE RECORDS SUMMARY | 2025-05-05 11:13 | XMS_ITS | Encounter Summary ---
Author Organization [employer] Address [address] [facility] [address] [place] [address] Care Team Providers Care Paste Thinner Name Role Phone Unavailable Primary Care Provider Unavailabl e Reason for Visit * Reason Onset Date Comments Med Change Request Prior Authorization 06/17/2023 Encounter Details Date Type Department Care Team ([facility] st Contact Info) Description 06/17/2023 Refill [facility] [address] [place], [place] [phone] Hanna Mills MD [address] [place], [place] [phone] Social History Tobacco Use Types Packs/Day Years [...] Spring Casas - 06/26/2023 11:02 AM EST Budget Director called [facility], spoke with pharmacy staff who stated PA not needed for vitamins and confirmed pt picked up med on 06/19. documented in this encounter Plan of Treatment Upcoming Encounters Date Type Department Care Team (Late st Contact Info) Description 05/25/2025 1:30 PM EST Office Visit [facility] [address] [place] [address] Blake Enciso MD [address] [place] [address] documented as of this encounter Visit Diagnoses Not on filedocumented in this encounter Additional Health Concerns Assessment Noted Time PHQ-9 Depression Total Score: 11 023 11:56 AM EDT documented as of this encounter
--- OUTSIDE RECORDS SUMMARY | 2025-05-05 11:13 | XMS_ITS | Encounter Summary ---
Author Organization [employer] Address [address] [place] [address] Care Team Providers Care Barrel Inspector Tight Name Role Phone Unavailable Primary Care Provider Unavailabl e Encounter Details Date Type Department Care Team ([facility] st Contact Info) Description 08/12/2024 Orders Only [facility] [address] [place] [address] Blake Enciso MD [address] [place] [address] Social History Tobacco Use Types Packs/Day Years [...] Description 05/25/2025 1:30 PM EST Office Visit [facility] [address] [place] [address] Blake Enciso MD [address] [place] [address] documented as of this encounter Visit Diagnoses Not on filedocumented in this encounter Additional Health Concerns Assessment Noted Time PHQ-9 Depression Total Score: 15 024 8:21 AM EST documented as of this encounter
--- OUTSIDE RECORDS SUMMARY | 2025-05-05 11:13 | XMS_ITS | Clinical Summary ---
Author Organization [employer] Address [address] [facility] [address] [place] [address] Care Team Providers Care Long Term Care Phlebotomist Name Role Phone Unavailable Primary Care Provider [...] each 10/01/19 24 Active buprenorphine-na loxone (Suboxone) 2-0.5 MG per sublingual filmIndications: Opioid type dependence, continuous (CMS/HCC) ([facility]) Place 1 Film under the tongue 2 times daily for 28 days. 56 Film 05/18/20 24 Active docusate sodium (Colace) 100 MG capsuleIndicatio ns:Opioid use disorder TAKE 1 OR 2 CAPSULES BY MOUTH AT BEDTIME NEEDED FOR CONSTIPATION. 180 capsule 1 07/14/19 25 Active ibuprofen 600 MG tablet Take 1 tablet (600 mg) by mouth every 8 (eight) hours if needed for mild pain, moderate pain, fever or headaches. 21 tablet 01/07/20 25 Active SUMAtriptan (Imitrex) 50 MG tablet [...] absorb continually. 1.5 mL 1 03/29/20 25 2024 Active buPROPion (Wellbutrin) 75 MG tabletIndication s:Posttraumatic stress disorder,JIMBO (generalized anxiety disorder) TAKE 1 TABLET BY MOUTH TWICE DAILY 60 tablet 2 04/22/20 25 Active QUEtiapine (SEROquel) 25 MG tabletIndication s:Mood disorder (CMS/HCC) TAKE 1 TABLET BY MOUTH EVERY DAY AT BEDTIME 30 tablet 2 04/22/20 25 Active buprenorphine-na loxone (Suboxone) 4-1 MG per sublingual filmIndications: Opioid type dependence, continuous (CMS/HCC) (HCC) Place 1 Film under the tongue if needed each day for withdrawal for up to 8 days. Take as directed. 8 Film 04/27/20 25 Active buprenorphine-na loxone (Suboxone) 4-1 MG per sublingual filmIndications: Opioid type dependence, continuous (CMS/HCC) (HCC) Place 1 Film under the tongue Once per day for 13 days. Take as directed. 13 Film 04/16/20 24 2024 Discontinued(R eorder (will not trigger notification to Pharmacy)) QUEtiapine (SEROquel) 25 MG tabletIndication s:Mood disorder (CMS/HCC) Take 1 tablet (25 mg) by mouth at bedtime. 30 tablet 2 01/22/20 25 2024 Discontinued buPROPion (Wellbutrin) 75 MG tabletIndication s:Posttraumatic stress disorder,JIMBO (generalized anxiety disorder) Take 1 tablet (75 mg) by mouth 2 times daily. 60 tablet 2 01/22/20 25 2024 Discontinued Hospital, Clinic, or Other Facility Administered Medication Ordered Dose Route Frequency Start Date End Date Status buprenorphine ER (Sublocade) 300 mg/1.5mL injection 1 eachIndications:Opioid type dependence, continuous ([facility]) ([facility]) 1 each SC Over 1 month 04/27/2025 04/27/2025 Ended Active Problems Problem Noted Date Diagnosed Date Bipolar 2 disorder (CMS/[facility]) 11/24/2024 Alcohol use disorder, mild, in sustained remissi on 06/15/2024 Opioid use disorder in remission 12/24/2023 06/18/2023 Assessment & Plan (06/18/2023 10:40 AM EST): - unknown gestational age - check hCG - prescribe vitamin - discussed about immunizations; pt declined influenza, COVID, or Tdap vaccines[facility] midline thoracic back pain 12/28/2022 Assessment [...] Depo-Provera - plan for Nexaplanon insertion by [facility] Assessment & Plan (11/21/2022 [...] accept help PLAN: 1. Follow up with [facility]: during OBAT appt 2. Patient goal is improve mental health and become sober 3. Behavioral Recommendations a. Ind. Therapy, referral will be submitted b. Medication Management c. Engagement with d. Use of coping skills provided as recommended e. 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 Scales, [facility] Heme - continue parenteral iron treatment Assessment & Plan (12/01/2022 7:07 AM EDT): - check CBC and iron study - if hematocrit < 27, will send to ED for transfusion. Otherwise, advised pt to follow up with residential property manager for iron infusion Assessment & Plan [...] too many SE and to f w residential property manager ,will hold now on repeating CBC given upcoming visit w residential property manager -RTC in 4 weeks w PCP [...] receive parenteral iron - will refer to residential property manager after confirming iron deficiency anemia by lab today - continue OCP - consider referral to GI for AUB / menorrhagia Posttraumatic stress disorder 07/30/2013 Assessment & Plan (03/31/2025 1:49 PM EDT): Resolved Problems Problem Noted Date Diagnosed Date Resolved Date Opioid use disorder 04/09/2023 05/26/20 24 Assessment & Plan (06/18/2023 10:38 AM EST): - participating [facility] OBAT - Currently on Suboxone 4.5 mg [...] accept help PLAN: 1. Follow up with [facility]: during OBAT appt 2. Patient goal is improve mental health and become sober 3. Behavioral Recommendations a. Ind. Therapy, referral will be submitted b. Medication Management c. Engagement with d. Use of coping skills provided as recommended e. [facility] contact number for extra support Moderate episode of recurren t major depressive disorder (CMS/HCC) 04/09/2023 10/01/2024 Assessment & Plan (05/26/2024 2:39 PM EST): PROGRESS NOTE: ID: Abigail is a 24 y.o. straight-identified cis-female with previous documented hx of Depression, Anxiety, Substance Use Disorder, and Trauma MH services including [facility] Psychotherapy psychopharmacology who presents for Anxiety, Depression, and Substance Use Disorder During IBH Consult Abigail presenting with depressed mood, irritable [...] Health Integration Plan Internal Follow up with [facility] External OP psychiatry Referral Patient Self Plan Patient to utilize skills provided in intervention , Patient to reach out [facility] team as needed, Comply with medication , Patient to engage in OP therapy , and Patient to reach out to [facility] as needed Hemorrhoids 11/21/2022 12/28/2022 Assessment & [...] [facility] and only had 5 tab at me ,already completed , pt denies hx of [...] both meds -pt has apt w her FENCE BU[employer]DER in 11/07/2022 -I Advised to f up w them as well about pap smear and contraception methods ,discussed here w Ritu Thomasanjanadanielle-about options but pt wants to hold x now -may benefit to get progestin based contraception. Anxiety about health 10/18/2017 025 Encounters * This document contains information received from the source organization and may not represent a complete record from that organization. Date Type Department Care Team Description 04/29/2025 Refill [facility] [address] [place] [address] Blake Enciso MD 04/27/2025 1:15 PM EDT Office Visit [facility] [address] [place] [phone] Blake Enciso MD Opioid type dependence, continuous (CMS/HCC) ([facility]) 04/27/2025 Travel 04/22/2025 Refill [facility] [address] [place] [address] Ivet Nelson MD Posttraumatic stress disorder; JIMBO (generalized anxiety disorder); Mood disorder (CMS/HCC) 04/14/2025 Telephone [facility] [address] [place] [address] [place] [address] Slime Deluna RN 04/14/2025 Telephone [facility] [place] [address] Slime Deluna RN 04/06/2025 Orders Only [facility] [place] [address] Slime Deluna RN 04/05/2025 Telephone [facility] [place] [address] Ivet Nelson MD No Show 03/30/2025 Telephone [facility] [place] [address] Ivet Nelson MD R/S appt 04/0903/29/2025 2:00 PM EDT Office Visit [facility] [place] [address] Blake Enciso MD Opioid dependence, uncomplicated ([facility]) (Primary Dx) 03/29/2025 Orders Only GENERIC EXTERNAL DATA DEPARTMENT Provider, Generic External Data 03/29/2025 Refill [facility] [place] [address] Slime Deluna RN Opioid dependence, uncomplicated ([facility]) 03/29/2025 Travel 03/22/2025 Telephone [facility] [place] [address] Slime Deluna RN 03/22/2025 Refill [facility] [place] [address] Slime Deluna RN Opioid dependence, uncomplicated ([facility]) from Last 3 Months Immunizations Immunization Administration [...] housing situation today? I have sanket bar 04/27/[address] you li ve. Do you have problems with any of the following? None of the above 04/27/2025 Food Insecurity Answer Date Recorded Within the past 12 months, y ou worried that your food would run out before you got money to buy more: Never True 04/27/2025 Within the past 12 months,th e food you bought just didn't last and you didn't have enough money to get more: Never True Transportation Answer Date Recorded In the past 12 months, has l ack of transportation kept you from medical appts, meetings, work or from getting things needed for daily living? No 04/27/2025 Utilities Answer Date Recorded In the past 12 months, has t he electric, gas, oil or water company threatened to shut off services in your home? No 04/27/2025 Depression Answer Date Recorded Patient Health Questionnaire-2 Score 1 02/10/2025 Internet Access Answer Date Recorded Internet Access Q1 No 04/27/2025 Internet Access Q2 Not on file 04/27/2025 Comments Unknown Sex and Gender Information Value [...] 1:30 PM EST Office Visit [facility] [address] [place], [place] [phone] Blake Enciso MD [address] [place], [place] [phone] Health Maintenance Due Date Last Done Comments Disability Screening 1999 Family Planning (PISQ) 2014 Pneumococcal Vaccine: Pediatrics (0 to 5 Years) and At-Risk Patients (6 to 49) Years (1 of 2 - PCV) 2018 07/02/2000, 05/02/2000 HPV/Cotest 09/17/2024 COVID-19 Vaccine ( - season) 2025 Influenza Vaccine (#1) 2025 07/26/2006 Lipid Panel 12/26/2025 12/26/2020 Depression Screening 02/10/2026 02/10/2025, 02/11/20 Alcohol/Substance Use Screening 04/27/2026 04/27/2025 SDOH Screening 04/27/2026 04/27/2025 Tobacco Screening 04/27/2026 04/27/2025 Pap Smear 09/17/2026 09/18/2023, 11/01/2020 DTaP/Tdap/Td Vaccines [...] Procedure Name Priority Date/Time Associated Diagnosis Comments CHLAMYDIA/GONORRHEA VAGINAL SWAB ([place] [facility]) Routine 03/31/2025 HEPATITIS A ANTIBODY, TOTAL Routine 03/29/2025 1:51 [...] Recently Relevant to Health Maintenance Results * Chlamydia/Gonorrhea Vaginal Swab ([place] [facility]) (03/31/2025) Chlamydia Vaginal Swab Negative Negative, Indeterminate, None Detected, Invalid, Specimen unsatisfactory for evaluation, Weakly Positive, 2+ Gonorrhea Vaginal Swab Negative Negative, Indeterminate, None Detected, Invalid, Specimen unsatisfactory for evaluation, Weakly Positive, 2+ Swab Vaginal structure / Unknown 03/31/2025 Historical Provider LAB MICROBIOLOGY - GENERA L ORDERABLES Final Result * Syphilis Screen (03/29/2025 1:51 PM EDT) Syphilis Screen Nonreactive Nonreactive [facility] Blood 03/29/2025 1:51 PM EDT 03/29/2025 4:05 PM EDT Blake Enciso MD LAB BLOOD ORDERABLES Final Resul t Performing Organization Address [facility]/ZIP Co de Phone Number [facility] [address] [place] [phone] * SST GOLD TOP TO HOLD (03/29/2025 1:51 PM EDT) Hold Gold See Note [facility] Comment:Specimen held untest ed for 24 hours; Call to requestChemistry testing. 03/29/2025 1:51 PM EDT 03/29/2025 4:05 PM EDT Generic External Data Provider LAB BLOOD ORDERAB LES Final Result Performing Organization Address [facility] Co de Phone Number [facility] [address] [place] [phone] * T-SPOT??.TB (03/29/2025 1:51 PM EDT) T Spot TB Negative Negative [facility] Comment:A negative test resu lt [...] as aquantitative test. TS PANEL A 0 [facility] TS PANEL B 0 [facility] Negative Control Passed [facility] Positive Control Passed [facility] Comment:For additional infor mation, please refer tohttp://education.[employer]/faq/OSP363(This link is being provided for informational/educational purposes only.)THIS TEST WAS PERFORMED AT:[employer] [id number] [place] [id number] W. MASON,MD,PHD 03/29/2025 1:51 PM EDT 03/29/2025 4:05 PM EDT us Blake Enciso MD LAB BLOOD ORDERABLES Final Resul t [facility] [address] [place] [phone] * (ABNORMAL) CBC auto differential (03/29/2025 1:51 PM EDT) White Blood Count 5.2 4.8 - 10.8 X10*3/uL [facility] Red Blood Count 4.57 4.20 - 5.50 X10*6/uL [facility] Hemoglobin 12.5 12.0 - 16.0 g/dl [facility] Hematocrit 37.8 37.0 - 47.0 % [facility] Mean Corpuscular Volume 82.7 80.0 - 98.0 fL [facility] Mean Corpuscular Hemoglobin 27.4 27.0 - 33.0 pg [facility] Mean Corpuscular HGB Conc 33.1 31.0 - 35.0 g/dl [facility] Red Cell Distribution Width 16.3(H) 11.0 - 16.0 % [facility] Platelet Count 313 160 - 400 X10*3/uL [facility] Mean Platelet Volume 10.4 9.4 - 12.3 fL [facility] Neutrophils Percent Auto 55.8 45 - 73 % [facility] Imm Gran Pct Auto 0.4 0.0 - 0.4 % [facility] Lymphocytes Percent Auto 35.0 20 - 40 % [facility] Monocytes Percent Auto 6.7 2 - 11 % [facility] Eosinophils Percent Auto 1.7 0 - 4 % [facility] Basophils Percent Auto 0.4 0 - 2 % [facility] NRBC Pct Auto 0.0 0.0 - 0.2 /100WBC [facility] Neutrophils Absolute Auto 2.9 2.0 - 8.3 x10*3/uL [facility] Imm Gran Abs Auto 0.02 0.00 - 0.03 X10*3/uL [facility] Lymphocytes Absolute Auto 1.8 1.2 - 4.9 X10*3/uL [facility] Monocytes Absolute Auto 0.4 0.1 - 1.2 X10*3/uL [facility] Eosinophils Absolute Auto 0.1 0.0 - 0.4 X10*3/uL [facility] Basophils Absolute Auto 0.0 0.0 - 0.2 X10*3/uL [facility] NRBC Abs Auto 0.000 0.0 - 0.012 X10*3/uL [facility] 03/29/2025 1:51 PM EDT 03/29/2025 4:05 PM EDT us Generic External Data Provider LAB BLOOD ORDERAB LES Final Result [facility] [address] [place] [phone] * Hepatitis C Antibody with Reflex to HCV, RNA, Quantitative, Real-Time PCR (03/29/2025 1:51 PM EDT) Hepatitis C Antibody Nonreactive Nonreactive [facility] Comment:Antibodies to HCV no t detected; does not exclude early acuteHCV infection. Blood Venous blood specimen / Unknown 03/29/2025 1:51 PM EDT 03/29/2025 4:05 PM EDT Blake Enciso MD LAB BLOOD ORDERABLES Final Resul t Performing Organization Address [facility] Co de Phone Number [facility] [address] [place] [phone] * Iron And Total Iron Binding Capacity (03/29/2025 1:51 PM EDT) Pathologist [facility] Iron 69 30 - 160 mcg/dL [facility] Total Iron Binding Capacity 269 228 - 428 mcg/dL [facility] Percent Iron Saturation 26 15 - 50 % [facility] Unsaturated Iron Binding 200 ug/dL [facility] 03/29/2025 1:51 PM EDT 03/29/2025 4:05 PM EDT [employer] External Data Provider LAB BLOOD ORDERAB LES Final Result Performing Organization Address [facility] de Phone Number [facility] [address] [place] [phone] * Hepatitis A Antibody, Total (03/29/2025 1:51 PM EDT) Hepatitis A Antibody IgG REACTIVE Nonreactive [facility] Comment:The presence of IgG anti-HAV implies past HAV infection(recent or distant) or vaccination against HAV. 03/29/2025 1:51 PM EDT 03/29/2025 4:05 PM EDT us Blake Enciso MD LAB BLOOD ORDERABLES Final Resul t Performing Organization Address [facility] de Phone Number [facility] [address] [place] [phone] * Hepatitis B surface antigen, EIA (03/29/2025 1:51 PM EDT) Pathologist [facility] Hepatitis B Surface Ag Negative Negative [facility] Blood Venous blood specimen / Unknown 03/29/2025 1:51 PM EDT 03/29/2025 4:05 PM EDT us Blake Enciso MD LAB BLOOD ORDERABLES Final Resul t [facility] [address] [place] [phone] * Hepatitis B Core Antibody, Total (03/29/2025 1:51 PM EDT) Pathologist [facility] Hepatitis B Core Antibody Nonreactive Nonreactive [facility] Blood Venous blood specimen / Unknown 03/29/2025 1:51 PM EDT 03/29/2025 4:05 PM EDT us Blake Enciso MD LAB BLOOD ORDERABLES Final Resul t Performing Organization Address [facility] Co de Phone Number [facility] [address] [place] [phone] * HIV-1/2 Antigen and Antibodies, Fourth Generation, with Reflexes (03/29/2025 1:51 PM EDT) Pathologist [facility] HIV AB/AG Nonreactive Nonreactive [facility] Comment:HIV-1 p24 Ag and/or HIV-1/HIV-2 Ab not detected.A test result that is nonreactive does not exclude thepossibility of exposure to or infection with HIV-1 and/orHIV-2. Nonreactive results in this assay for individualswith prior exposure to HIV-1 and/or HIV-2 may be due toantigen and antibody levels that are below the limit ofdetection of this assay.The evolso HIV Ag/Ab Combo assay result andsupplemental assay results should be interpreted inconjunction with the patient's clinical presentation,history and other laboratory results. If the results areinconsistent with clinical evidence, additional testing issuggested to confirm the result. Blood Venous blood specimen / Unknown 03/29/2025 1:51 PM EDT 03/29/2025 4:05 PM EDT Blake Enciso MD LAB BLOOD ORDERABLES Final Resul t Performing Organization Address [facility] Co de Phone Number [facility] [address] [place] [phone] * Hepatitis B Surface Antibody, Qualitative (03/29/2025 1:51 PM EDT) Pathologist [facility] ~Hepatitis B Surface Antibody REACTIVE Nonreactive [facility] Comment:REACTIVE: > 11.99 mI U/mL Blood Venous blood specimen / Unknown 03/29/2025 1:51 PM EDT 03/29/2025 4:05 PM EDT Blake Enciso MD LAB BLOOD ORDERABLES Final Resul t Performing Organization Address [facility] de Phone Number [facility] [address] [place] [phone] * Ferritin (03/29/2025 1:51 PM EDT) Pathologist [facility] Ferritin 50 10 - 122 ng/mL [facility] 03/29/2025 1:51 PM EDT 03/29/2025 4:05 PM EDT us Generic External Data Provider LAB BLOOD ORDERAB LES Final Result Performing Organization Address [facility] de Phone Number [facility] [address] [place] [address] [phone] * (ABNORMAL) Comprehensive Metabolic Panel (03/29/2025 1:51 PM EDT) [facility] Sodium 140 135 - 145 mmol/L [facility] Potassium 3.7 3.3 - 5.1 mmol/L [facility] Chloride 105 96 - 108 mmol/L [facility] Carbon Dioxide 27 22 - 29 mmol/L [facility] Anion Gap 12 12 - 20 [facility] Urea Nitrogen (BUN) 10 9 - 16 mg/dL [facility] Creatinine, Serum 0.56 0.5 - 1.4 mg/dL [facility] Estimated Glomerular Filt Rate >60 [facility] Comment:Chronic Kidney Disea se: Estimated GFR < 60 mL/min/[id number] Kidney Disease: Estimated GFR < 15 mL/min/1.73m2 Glucose 93 60 - 115 mg/dL [facility] Calcium 9.2 8.4 - 10.2 mg/dL [facility] Bilirubin, Total 0.2 0.0 - 1.0 mg/dL [facility] Aspartate Amino Transferase 60(H) 5 - 31 U/L [facility] Alanine Aminotransferase 87(H) 0 - 31 U/L [facility] Total Protein 7.4 6.5 - 8.0 g/dL [facility] Albumin Level 4.5 3.5 - 5.0 g/dL [facility] Alkaline Phosphatase 56 39 - 117 U/L [facility] 03/29/2025 1:51 PM EDT 03/29/2025 4:05 PM EDT us Generic External Data Provider LAB BLOOD ORDERAB LES Final Result [facility] [address] [place] [address] [phone] * (ABNORMAL) POCT MADDISON-14 Urine Drug [...] PM EDT) Chol/HDLC Ratio 2.7 <5.0 (calc) [facility] Cholesterol, Total 110 <200 mg/dL [facility] HDL Cholesterol 41(L) > OR = 50 mg/dL [facility] LDL Cholesterol 52 mg/dL (calc) [facility] Comment: Reference range: <100 Desirable range <100 mg/dL for primary prevention; <70 mg/dL for patients with CHD or diabetic patients with > or = 2 CHD risk factors. LDL-C is now calculated using the Socrates-Pace calculation, which is a validated novel method providing better accuracy than the Friedewald equation in the estimation of LDL-C. Socrates SS et al. SHELBY. 2013;310(19): 4083-9631 (http://education.P[employer]Daily.[place] [employer]/faq/NBH859) Non-HDL Cholesterol 69 <130 mg/dL (calc) [facility] Comment: For patients with diabetes plus 1 major ASCVD risk factor, treating to a non-HDL-C goal of <100 mg/dL (LDL-C of <70 mg/dL) is considered a therapeutic option. Triglycerides 90 <150 mg/dL [facility] 12/26/2020 1:46 PM EDT Hollei Martines SALES REPRESENTATIVE [employer] LAB BLOOD ORDERABLES Final Result [facility] [address] [place] [address], from Last 3 Months or Most Recently Relevant to Health Maintenance Insurance [facility] C3
--- OUTSIDE RECORDS SUMMARY | 2025-05-05 11:13 | XMS_ITS | Encounter Summary ---
Author Organization [employer] Address [address] [place] [address] Care Team Providers Care Public Address Announcer Name Role Phone Unavailable Primary Care Provider Unavailabl e Encounter Details Date Type Department Care Team (Late st Contact Info) Description 11/26/2023 Orders Only [facility] [address] [place], [place] [phone] Blake Enciso MD [address] [place], [place] [phone] Social History Tobacco Use Types Packs/Day Years [...] t he electric, gas, oil or water [employer] threatened to shut off services in your [...] Description 05/25/2025 1:30 PM EST Office Visit [facility] [address] [place] [address] Blake Enciso MD [address] [place] [address] documented as of this encounter Visit Diagnoses Not on filedocumented in this encounter Additional Health Concerns Assessment Noted Time PHQ-9 Depression Total Score: 11 023 11:56 AM EDT documented as of this encounter
--- OUTSIDE RECORDS SUMMARY | 2025-05-05 11:13 | XMS_ITS | Encounter Summary ---
Author Organization [employer] Address [address] 7t [place] [address] Care Team Providers Care Promotions Manager Name Role Phone Unavailable Primary Care Provider Unavailabl e Encounter Details Date Type Department Care Team ([facility] st Contact Info) Description 07/21/2024 Orders Only [facility] [address] [place], [place] [phone] Blake Enciso MD [address] [place] [address] Social History Tobacco Use Types Packs/Day Years [...] Description 05/25/2025 1:30 PM EST Office Visit [facility] [address] [place] [address] Blake Enciso MD [address] [place] [address] documented as of this encounter Visit Diagnoses Not on filedocumented in this encounter Additional Health Concerns Assessment Noted Time PHQ-9 Depression Total Score: 15 024 8:21 AM EST documented as of this encounter
--- OUTSIDE RECORDS SUMMARY | 2025-05-05 11:13 | XMS_ITS | Encounter Summary ---
Author Organization [employer] Address [address] [facility] 7t [place] [address] Care Team Providers Care Ocean Forwarder Name Role Phone Unavailable Primary Care Provider Unavailabl e Encounter Details Date Type Department Care Team ([facility] Contact Info) Description 11/21/2022 Telephone [facility] [address] [place] [address] [phone] Hanna Mills MD [address] [place] [address] [phone] Social History Tobacco Use Types Packs/Day Years [...] Upcoming Encounters Date Type Department Care Team ([facility] Contact Info) Description 05/25/2025 1:30 PM EST Office Visit [facility] [address] [place] [address] [phone] Blake Enciso MD [address] [place] [address] documented as of this encounter Visit Diagnoses Not on filedocumented in this encounter Additional Health Concerns Assessment Noted Time PHQ-9 Depression Total Score: 5 07/23/19 23 3:04 PM EST documented as of this encounter
--- OUTSIDE RECORDS SUMMARY | 2025-05-05 11:13 | XMS_ITS | Encounter Summary ---
Author Organization [employer] Address [address] [facility] 7t [place] [address] Care Team Providers Care Strategic Marketing Specialist Name Role Phone Unavailable Primary Care Provider Unavailabl e Reason for Visit * Reason Onset Date Comments Med Refill 06/21/2024 Encounter Details Date Type Department Care Team ([facility] st Contact Info) Description 06/21/2024 Refill [facility] [address] [place] [address] Blake Enciso MD [address] [place] [address] Opioid type dependence, continuous (CMS/HCC) Social History [...] 05/25/2025 1:30 PM EST Office Visit [facility] [address] [place] [address] Blake Enciso MD [address] [place] [address] documented as of this encounter Visit Diagnoses Diagnosis Opioid type dependence, continuous (CMS/HCC) ([facility]) Opioid type dependence, continuous documented in this encounter Additional Health Concerns Assessment Noted Time PHQ-9 Depression Total Score: 15 024 8:21 AM EST documented as of this encounter
--- OUTSIDE RECORDS SUMMARY | 2025-05-05 11:13 | XMS_ITS | Encounter Summary ---
Author Organization [employer] Address [address] [facility] 7t [place] [address] Care Team Providers Care Spinning Bath Person Name Role Phone Unavailable Primary Care Provider Unavailabl e Reason for Visit * Reason Comments Med Refill Encounter Details Date Type Department Care Team ([facility] st Contact Info) Description 06/19/2024 Refill [facility] 230 [place] [address] Blake Enciso MD [address] [place], [place] [phone] Opioid type dependence, continuous (CMS/HCC) Social History [...] 1:30 PM EST Office Visit [facility] [address] [place] [address] Blake Enciso MD 230 [place] [address] documented as of this encounter Visit Diagnoses Diagnosis Opioid type dependence, continuous (CMS/HCC) (HCC) Opioid type dependence, continuous documented in this encounter Additional Health Concerns Assessment Noted Time PHQ-9 Depression Total Score: 15 024 8:21 AM EST documented as of this encounter
--- OUTSIDE RECORDS SUMMARY | 2025-05-05 11:13 | XMS_ITS | Encounter Summary ---
Author Organization [employer] Address [address] [facility] 7t [place] [address] Care Team Providers Care Plant Operations Manager Name Role Phone Unavailable Primary Care Provider Unavailabl e Reason for Visit * Reason Onset Date Comments Med Refill 06/21/2024 Encounter Details Date Type Department Care Team ([facility] st Contact Info) Description 06/21/2024 Refill [facility] MED[facility]INE [address] [place], [place] [phone] Hanna Mills MD [address] [place], [place] [phone] Social History Tobacco Use Types Packs/Day Years [...] Description 05/25/2025 1:30 PM EST Office Visit [facility]INE [address] [place] [address] Blake Enciso MD [address] [place] [address] documented as of this encounter Visit Diagnoses Not on filedocumented in this encounter Additional Health Concerns Assessment Noted Time PHQ-9 Depression Total Score: 15 024 8:21 AM EST documented as of this encounter
--- OUTSIDE RECORDS SUMMARY | 2025-05-05 11:13 | XMS_ITS | Encounter Summary ---
Author Organization [employer] Address [address] 7t [place] [address] Care Team Providers Care Strainer Mill Operator Name Role Phone Unavailable Primary Care Provider Unavailabl e Encounter Details Date Type Department Care Team ([facility] st Contact Info) Description 06/15/2024 Orders Only [facility] MED[facility]INE [address] [place] [address] Radha Catalan Social History Tobacco Use Types [...] Description 05/25/2025 1:30 PM EST Office Visit [facility] [address] [place] [address] Blake Enciso MD [address] [place] [address] documented as of this encounter Procedures Procedure [...]
--- OUTSIDE RECORDS SUMMARY | 2025-05-05 11:13 | XMS_ITS | Encounter Summary ---
Author Organization [employer] Address [address] [facility] 7t [place] [address] Care Team Providers Care Customs Brokerage Manager Name Role Phone Unavailable Primary Care Provider Unavailabl e Reason for Visit * Reason Comments Med Refill Encounter Details Date Type Department Care Team ([facility] st Contact Info) Description 09/16/2023 Refill [facility] MEDICINE 230 [place], [place] [phone] Blake Enciso MD [address] [place], [place] [phone] Uncomplicated opioid dependence (CMS/HCC) Social History Tobacco [...] Description 05/25/2025 1:30 PM EST Office Visit [facility] MED[facility]INE [address] [place] [address] Blake Enciso MD [address] [place] [address] documented as of this encounter Visit Diagnoses Diagnosis Uncomplicated opioid dependence (CMS/HCC) (HCC) documented in this encounter Additional Health Concerns Assessment Noted Time PHQ-9 Depression Total Score: 11 023 11:56 AM EDT documented as of this encounter
--- OUTSIDE RECORDS SUMMARY | 2025-05-05 11:13 | XMS_ITS | Encounter Summary ---
Author Organization [employer] Address [address] [facility] 7t [place] [address] Care Team Providers Care Textiles Sales Representative Name Role Phone Unavailable Primary Care Provider Unavailabl e Encounter Details Date Type Department Care Team ([facility] st Contact Info) Description 06/12/2024 Orders Only [facility] [address] [place] [address] Hanna Mills MD [address] [place], [place] [phone] Social History Tobacco Use Types Packs/Day Years [...] 1:30 PM EST Office Visit [facility] MED[facility] [address] [place] [address] Blake Enciso MD [address] [place] [address] documented as of this encounter Visit Diagnoses Not on filedocumented in this encounter Additional Health Concerns Assessment Noted Time PHQ-9 Depression Total Score: 024 8:21 AM EST documented as of this encounter
--- OUTSIDE RECORDS SUMMARY | 2025-05-05 11:13 | XMS_ITS | Clinical Summary ---
Author Organization [facility] Address [address] [place] [address] Care Team Providers Care Brand Engineer Name Role Phone Physician, No Pcp Primary Care Provider Unavaila ble Allergies Active Allergy Reactions Criticality Noted Date Comments Fluoxetine Hives 10/22/2023 Hives/Urticaria Penicillins Hives 12/07/2019 Hives/Urticaria Medications aspirin 81 mg EC tablet Take 2 Tablets by mouth daily. 11/28/2023 Active blood pressure test kit (BLOOD PRESSURE MONITOR [facility]) USE TO CHECK BLOOD PRESSURE EVERY DAY NEEDED 10/01/2023 Active docusate sodium (COLACE) 100 mg capsule TAKE 1 OR 2 CAPSULES BY MOUTH AT BEDTIME NEEDED FOR CONSTIPATION. 09/17/2023 Active hydrOXYzine pamoate (VISTARIL) 25 mg capsule Take 1 Capsule by mouth 3 times daily as needed for Itching. 01/04/2024 Active PNV no.153/FA/om3/d ward/epa/fish ( GUMMIES ORAL) XO-Wyq-XA-Ome ga-3 ( Gummies/DHA & FA) 0.4-32.5 MG [...] (05/25/2024): X2 Records from 2017 C/S at [facility]: Pt aware [facility] will only do [...] 11/06/2023 Overview (03/26/2024): 08/2023 PAP - @ 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 10/22/2023 She is told to keep this appt Abnormal Pap smear of cervix 10/22/2023 Overview (03/26/2024): 09-18-23 LSIL repeat in 1 yr Chronic hypertension 10/22/2023 Overview (03/26/2024): 01/03: elevated bp in triage Per [facility] - CHTN vs ? Exaggerated stress response - seen by cardiology multiple times after first during which she had PIH and continued to have elevated BPs for months after , as well as elevated BPs in emergency settings. Per cards notes , possibly she has an exagerrated stress response, rather than true cHTN- conservatively can treat at [facility] in as we have elevated BPS [...] second trimester 10/22/2023 Overview (03/26/2024): Transfer from [facility]- records transcribed Pt with unknown LMP . AARTI 04-01-24 confirmed by dating u/s at [facility] 08/23/2023 Ht 5'2 143 lbs 5 [...] , zofran, miralax Last Assessment & Plan: Lead Based Paint Technician on glucose screen 3rd trimester Anxiety and [...] your loved ones. For example, child care supervisor or elderly care for an older adult? [...] topic Insurance MEDICAID - [place] Care Teams Brand Engineer Relationship Specialty Start Date End Date Physician, No Pcp PCP - General 08/05/24
--- OUTSIDE RECORDS SUMMARY | 2025-05-05 11:13 | XMS_ITS | Encounter Summary ---
Author Organization [employer] Address [address] 7t [place] [address] Care Team Providers Care Office Technology Professor Name Role Phone Unavailable Primary Care Provider Unavailabl e Encounter Details Date Type Department Care Team (Late st Contact Info) Description 08/10/2024 Orders Only [facility] MEDICINE [address] [place] [address] Slime Deluna RN Opioid dependence, uncomplicated (CMS/HCC) [...] Description 05/25/2025 1:30 PM EST Office Visit [facility] [address] [place], [place] [phone] Blake Enciso MD [address] [place] [address] Scheduled Orders Name Type Priority Associated Diagnoses [...]
--- OUTSIDE RECORDS SUMMARY | 2025-05-05 11:13 | XMS_ITS | Encounter Summary ---
Author Organization [employer] Address [address] [facility] 7t [place] [address] Care Team Providers Care Sales Enablement Analyst Name Role Phone Unavailable Primary Care Provider Unavailabl e Reason for Visit * Reason Comments Med Refill Encounter Details Date Type Department Care Team ([facility] st Contact Info) Description 04/29/2025 Refill [facility] MED[facility]INE 230 [place] [address] Blake Enciso MD [address] [place] [address] Social History Tobacco Use Types Packs/Day Years [...] 1:30 PM EST Office Visit [facility] [address] [place] [phone] Blake Enciso MD [address] [place] [address] documented as of this encounter Visit Diagnoses Not on filedocumented in this encounter Additional Health Concerns Assessment Noted Time PHQ-9 Depression Total Score: 2 02/11/20 25 3:28 PM EDT documented as of this encounter
--- OUTSIDE RECORDS SUMMARY | 2025-05-05 11:13 | XMS_ITS | Encounter Summary ---
Author Organization [employer] Address [address] [facility] [facility] [address] 7t [place] [address] Care Team Providers Care Service Observer Name Role Phone Unavailable Primary Care Provider Unavailabl e Encounter Details Date Type Department Care Team ([facility] st Contact Info) Description 04/30/2023 Orders Only [facility] [address] [place], [place] [phone] Blake Enciso MD [address] [place] [address] Social History Tobacco Use Types Packs/Day Years [...] Description 05/25/2025 1:30 PM EST Office Visit [facility] [address] [place] [address] Blake Enciso MD [address] [place] [address] documented as of this encounter Visit Diagnoses Not on filedocumented in this encounter Additional Health Concerns Assessment Noted Time PHQ-9 Depression Total Score: 11 023 11:56 AM EDT documented as of this encounter
--- OUTSIDE RECORDS SUMMARY | 2025-05-05 11:13 | XMS_ITS | Encounter Summary ---
Author Organization [employer] Address [address] [facility] [address] 7t [place] [address] Care Team Providers Care Hybrid Corn Breeder Name Role Phone Unavailable Primary Care Provider Unavailabl e Encounter Details Date Type Department Care Team (Late st Contact Info) Description 08/10/2024 Orders Only [facility] MED[facility]INE [address] [place] [address] Slime Deluna RN Opioid dependence, uncomplicated (CMS/HCC) [...] Description 05/25/2025 1:30 PM EST Office Visit [facility] [address] [place] [address] Blake Enciso MD [address] [place] [address] documented as of this encounter Visit Diagnoses Diagnosis Opioid dependence, uncomplicated (CMS/HCC) (HCC) documented in this encounter Additional Health Concerns Assessment Noted Time PHQ-9 Depression Total Score: 15 024 8:21 AM EST documented as of this encounter
--- OUTSIDE RECORDS SUMMARY | 2025-05-05 11:13 | XMS_ITS | Encounter Summary ---
Author Organization [employer] Address [address] [facility] 7t [place] [address] Care Team Providers Care Supervisor Phosphorus Processing Name Role Phone Unavailable Primary Care Provider Unavailabl e Reason for Visit * Reason Onset Date Comments Med Refill 11/02/2022 Encounter Details Date Type Department Care Team ([facility] st Contact Info) Description 11/02/2022 Telephone [facility] MEDICINE [address] [place] [address] Hanna Mills MD [address] [place] [address] Med Refill Social History Tobacco Use Types [...] MG immediate release tablet Please sent to [facility]/pharmacy #[id number] - [place], [place] - [phone] [facility] documented in this encounter Plan of Treatment Upcoming Encounters Date Type Department Care Team (Late st Contact Info) Description 05/25/2025 1:30 PM EST Office Visit [facility] MED[facility]INE [address] [place], [place] [phone] Blake Enciso MD [address] [place], [place] [phone] documented as of this encounter Visit Diagnoses Not on filedocumented in this encounter Additional Health Concerns Assessment Noted Time PHQ-9 Depression Total Score: 5 07/23/19 23 3:04 PM EST documented as of this encounter
--- OUTSIDE RECORDS SUMMARY | 2025-05-05 11:14 | XMS_ITS | Encounter Summary ---
Author Organization [employer] Address [address] [facility] 7t [place] [address] Care Team Providers Care Motor Block Mechanic Name Role Phone Unavailable Primary Care Provider Unavailabl e Encounter Details Date Type Department Care Team ([facility] Contact Info) Description 09/25/2022 Orders Only [facility] MEDICINE [address] [place] [address] [phone] Hanna Mills MD [address] [place] [address] [phone] 8 weeks gestation of (Primary Dx) Social [...] Description 05/25/2025 1:30 PM EST Office Visit [facility] MEDICINE [address] [place] [address] [phone] Blake Enciso MD [address] [place] [address] documented as of this encounter Visit Diagnoses Diagnosis 8 weeks gestation of - Primary documented in this encounter Additional Health Concerns Assessment Noted Time PHQ-9 Depression Total Score: 5 07/23/19 23 3:04 PM EST documented as of this encounter
--- OUTSIDE RECORDS SUMMARY | 2025-05-05 11:14 | XMS_ITS | Encounter Summary ---
Author Organization [employer] Address [address] [facility] 7t [place] [address] Care Team Providers Care Case Management Associate Name Role Phone Unavailable Primary Care Provider Unavailabl e Encounter Details Date Type Department Care Team ([facility] st Contact Info) Description 08/29/2022 Telephone [facility] MEDICINE [address] [place], [place] [phone] Hanna Mills MD [address] [place], [place] [phone] Social History Tobacco Use Types Packs/Day Years [...] Description 05/25/2025 1:30 PM EST Office Visit [facility] MEDICINE 230 [place], [place] [phone] Blake Enciso MD [address] [place] [address] documented as of this encounter Visit Diagnoses Not on filedocumented in this encounter Additional Health Concerns Assessment Noted Time PHQ-9 Depression Total Score: 5 07/23/19 23 3:04 PM EST documented as of this encounter
--- OUTSIDE RECORDS SUMMARY | 2025-05-05 11:14 | XMS_ITS | Encounter Summary ---
Author Organization [employer] Address [address] [facility] 7t [place] [address] Care Team Providers Care Brine Mixer Operator Name Role Phone Unavailable Primary Care Provider Unavailabl e Encounter Details Date Type Department Care Team ([facility] Contact Info) Description 07/25/2022 Orders Only [facility] MEDICINE [address] [place] [address] [phone] Hanna Mills MD [address] [place] [address] [phone] Iron deficiency anemia due to chronic blood [...] Upcoming Encounters Date Type Department Care Team ([facility] Contact Info) Description 05/25/2025 1:30 PM EST Office Visit [facility] MED[facility]INE [address] [place] [phone] Blake Enciso MD 230 [facility] [place] [address] documented as of this encounter Visit Diagnoses Diagnosis Iron deficiency anemia due to chronic 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
== END 2025-05-05 10:53 | disposition home or self-care (01) ==
LOC: HO.HWS 09:53
PROVIDERS: PCP Emergency Medicine; Visit Provider Obstetrics & Gynecology
DX: N76.0 Acute vaginitis (principal); B96.89 Other specified bacterial agents as the cause of diseases classified elsewhere
CPT/HCPCS: 99213

== ENCOUNTER 2025-05-05 09:53 | Outpatient (REF) | payer MEDICAID, SELFPAY ==
[2025-05-05 16:33] LABS: Bacterial Vaginosis PCR POSITIVE (Negative); Candida Group PCR NOT DETECTED (Not Detect); Candida glab krusei PCR NOT DETECTED (Not Detect); Trichomonas vaginalis PCR NOT DETECTED (Not Detect)
[2025-05-05 17:02] LABS: CT PCR NOT DETECTED (Not Detect.); NG PCR NOT DETECTED (Not Detect.)
== END 2025-05-05 09:54 | disposition home or self-care (01) ==
LOC: HO.LNP 09:53
PROVIDERS: PCP Emergency Medicine; Visit Provider Obstetrics & Gynecology
DX: N76.0 Acute vaginitis (principal); B96.89 Other specified bacterial agents as the cause of diseases classified elsewhere; Z20.2 Contact with and (suspected) exposure to infections with a predominantly sexual mode of transmission
CPT/HCPCS: 81515; 87491; 87591; 99212

== ENCOUNTER 2025-06-07 15:19 | Outpatient (AMB) | payer MEDICAID, SELFPAY ==
--- NOTE | 2025-06-07 15:32 | A.OFFVIS_ITS ---
Intake Visit Reasons: pelvic pain Hot Air Furnace Installer And Repairer: Hot Air Furnace Installer And Repairer Present (Deanna) Accompanied by: Self / Same As Patient Allergies fluoxetine (From PROZAC) Allergy (Unknown, Verified 05/05/25 10:22) HIVES penicillin V Allergy (Unknown, Verified 05/05/25 10:22) hives ferrous sulfate Adverse Reaction (Verified 05/05/25 10:22) Stomach Upset HPI Comments Details: Presenting complaining of pelvic pain that started a year ago after her last C- section during which the patient state that she had lot of adhesions and the recommendation was for her not to get anymore, since then pain is cyclic history of bilateral lower leg . 04/24 Pelvic ultrasound showed the following: IMPRESSION: 1. Normal pelvic ultrasound. Endometrial thickness is 6 mm, and is uniform without irregularity. No myometrial abnormalities. 2. Normal ovaries bilaterally 05/25 GC/CT negative PFSH Medical History Migraine with aura External hemorrhoids with complication Surgical History History of Family History Maternal Grandmother Colon cancer Social History Household Members: Children Housing: House Are you a primary care support representative to a significant other at home: No Do you presently have visiting nurse or other home services: No Patient Tobacco Use Status: Never used Tobacco Second Hand Smoke Exposure: No service: No Current occupational status: unemployed Review of Systems Const All systems reviewed & are unremarkable except as noted in HPI and below Physical Exam General: Yes no CVA tenderness External Female Exam: normal external appearance and normal appearance of the urethra Speculum Exam - Vagina: normal appearance of the vagina, normal palpation, no lesions and no masses Speculum Exam - Cervix: normal appearance of the cervix, normal palpation, no lesions, no masses and nontender Bimanual exam- vagina & uterus: normal bimanual exam, normal palpation, uterine size normal, normal palpation, uterine shape normal, No Cervical tenderness present and non-tender Bimanual Exam- Adnexa, other: normal adnexae Back/Spine/Pelvis Back: no CVA tenderness Assessment & Plan Assessment & Plan (1) Pelvic pain: Code(s): R10.20 - Pelvic and perineal pain unspecified side Category: Medical Plan: Urine dip and test done in the office was negative. Discussed with the patient the results of the workup done including negative GC/chlamydia, urine dip, urine test and pelvic ultrasound. Differential diagnosis of ob/gyn physician causes that have not be ruled out yet include but not limited to endometriosis, pelvic adhesions , or others. Recommended for the patient to see her PCP for further workup for non ob/gyn physician causes; and you will refer to pelvic pain specialist at [facility]. Instructed the patient to call our office back in case a referral appointment is not scheduled, missed or canceled so that we will assist on rescheduling another appointment, the patient verbalized understanding agreed with the plan. Coding Level of Care Code Est Pt Level 3 (67551) Diagnoses Pelvic pain R10.20
--- OUTSIDE RECORDS SUMMARY | 2025-06-08 00:49 | XMS_ITS | Clinical Summary ---
Author Organization [employer] Address [address] [place] [address] Care Team Providers Care National Insurance Officer Name Role Phone Unavailable Primary Care [...] sublingual filmIndications: Opioid type dependence, continuous (CMS/HCC) ([facility]) Place 1 Film under the tongue [...] 7 days. 21 tablet 03/22/20 25 Active buPROPion (Wellbutrin) 75 MG tabletIndication s:Posttraumatic stress disorder,JIMBO (generalized anxiety disorder) TAKE 1 TABLET BY MOUTH TWICE DAILY 60 tablet 2 04/22/20 25 Active buprenorphine ER (Sublocade) 300 mg/1.5mL injectionIndicat ions:Opioid dependence, uncomplicated (CMS/HCC) (HCC) Inject 1.5 mL (1 each) under the skin every month to absorb continually. Administer q 28 days 1.5 mL 5 5 1:48 PM EST 05/20/20 25 2025 Active buprenorphine-na loxone (Suboxone) 4-1 MG per sublingual filmIndications: Opioid type dependence, continuous (CMS/HCC) (HCC) Place 1 Film under the tongue if needed each day for withdrawal. Take as directed. 8 Film 5 2:29 PM EST 05/25/20 25 Active QUEtiapine (SEROquel) 25 MG tabletIndication s:Mood disorder (CMS/HCC) Take 1 tablet (25 mg) by mouth if needed at bedtime (sleep). 30 tablet 2 5 2:29 PM EST 05/25/20 25 Active buprenorphine ER (Sublocade) 300 mg/1.5mL injectionIndicat ions:Opioid dependence, uncomplicated (CMS/HCC) (HCC) Inject 1.5 mL (1 each) under the skin every month to absorb continually. 1.5 mL 1 03/29/20 25 2024 QUEtiapine (SEROquel) 25 MG tabletIndication s:Mood disorder (CMS/HCC) TAKE 1 TABLET BY MOUTH EVERY DAY AT BEDTIME 30 tablet 2 04/22/202024 Discontinued(R eorder (will not trigger notification to Pharmacy)) buprenorphine-na loxone (Suboxone) 4-1 MG per sublingual filmIndications: Opioid type dependence, continuous (CMS/HCC) ([facility]) Place 1 Film under the tongue if needed each day for withdrawal for up to 8 days. Take as directed. 8 Film 04/27/202024 Discontinued(R eorder (will not trigger notification to Pharmacy)) Hospital, Clinic, or Other Facility Administered Medication Ordered Dose Route Frequency Start Date End Date Status buprenorphine ER (Sublocade) 300 mg/1.5mL injection 1 eachIndications:Opioid dependence, uncomplicated (CMS/HCC) ([facility]) 1 each SC Over 1 month 05/25/2025 05/25/2025 Ended Active Problems Problem Noted Date Diagnosed Date Bipolar 2 disorder (CMS/[facility]) 11/24/2024 Assessment & Plan (05/19/2025 12:36 PM EST): Orders: Referral to Behavioral Health; Future Alcohol use disorder, mild, in sustained remissi on 06/15/2024 Opioid use disorder in remission 12/24/2023 Assessment & Plan (05/19/2025 12:36 PM EST): Orders: Referral to Behavioral Health; Future 06/18/2023 Assessment & Plan (06/18/2023 10:40 AM EST): - unknown gestational age - check hCG - prescribe vitamin - discussed about immunizations; pt declined influenza, COVID, or Tdap vaccines. - refer to [facility] Chronic midline thoracic back pain 12/28/2022 Assessment [...] Depo-Provera - plan for Nexaplanon insertion by [facility] Assessment & Plan (11/21/2022 11:18 AM [...] accept help PLAN: 1. Follow up with [facility]: during OBAT appt 2. Patient goal is improve mental health and become sober 3. Behavioral Recommendations a. Ind. Therapy, referral will be submitted b. Medication Management c. Engagement with [facility] d. Use of coping skills provided as recommended e. 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 Scales, [facility] Heme - continue parenteral iron treatment Assessment & Plan (12/01/2022 7:07 AM EDT): - check CBC and iron study - if hematocrit < 27, will send to ED for transfusion. Otherwise, advised pt to follow up with [facility] for iron infusion Assessment & Plan (10/24/2022 [...] too many SE and to f w [facility] ,will hold now on repeating CBC given upcoming visit w [facility] -RTC in 4 weeks w PCP to [...] receive parenteral iron - will refer to [facility] after confirming iron deficiency anemia by lab today - continue OCP - consider referral to GI for AUB / menorrhagia Posttraumatic stress disorder 07/30/2013 Assessment & Plan (05/19/2025 12:36 PM EST): Orders: Referral to Behavioral Health; Future Assessment & Plan (03/31/2025 1:49 PM EDT): Resolved Problems Problem Noted Date Diagnosed Date Resolved Date Opioid use disorder 04/09/2023 05/26/20 24 Assessment & Plan (06/18/2023 10:38 AM EST): - participating [facility] OBAT - Currently on Suboxone 4.5 [...] accept help PLAN: 1. Follow up with [facility]: during OBAT appt 2. Patient goal is improve mental health and become sober 3. Behavioral Recommendations a. Ind. Therapy, referral will be submitted b. Medication Management c. Engagement with d. Use of coping skills provided as recommended e. [facility] contact number for extra support Moderate episode of recurren t major depressive disorder ([facility]) 04/09/2023 10/01/2024 Assessment & Plan (05/26/2024 2:39 PM EST): PROGRESS NOTE: ID: Abigail is a 24 y.o. straight-identified cis-female with previous documented hx of Depression, Anxiety, Substance Use Disorder, and Trauma services including OP Psychotherapy psychopharmacology who presents for Anxiety, Depression, [...] Health Integration Plan Internal Follow up with [facility] External OP psychiatry Referral Patient Self Plan Patient to utilize skills provided in intervention , [facility], Comply with medication [...] MassPAT and only had 5 tab at dc ,already completed , pt denies hx of [...] both meds -pt has apt w her [employer] in 11/07/2022 -I Advised to f up [...] organization. Date Type Department Care Team Description 06/02/2025 Orders Only [facility] MEDIC[facility] [address] [place] [phone] Slime Deluna RN 05/25/2025 1:30 PM EST Office Visit [address] [address] Blake Enciso MD Opioid dependence, uncomplicated (CMS/HCC) (HCC) (Primary Dx); Opioid type dependence, continuous (CMS/HCC) (HCC); Mood disorder (CMS/HCC) 05/25/2025 Patient Outreach [address] [address] Nicholas Gastelum Recovery Supports 05/20/2025 Refill [facility] [address] [place] [phone] Slime Deluna RN Opioid dependence, uncomplicated (CMS/HCC) (HCC) (Primary Dx) 05/05/2025 Orders Only GENERIC EXTERNAL DATA DEPARTMENT Provider, Generic External Data 04/29/2025 Refill [facility] [address] [place] [phone] Blake Enciso MD 04/27/2025 1:15 PM EDT Office Visit [address] [phone] Blake Enciso MD Opioid type dependence, continuous (CMS/HCC) (HCC) 04/27/2025 Travel 04/22/2025 Refill [facility] [address] [place], [place] [phone] Ivet Nelson MD Posttraumatic stress disorder; JIMBO (generalized anxiety disorder); Mood disorder (CMS/HCC) 04/14/2025 Telephone [facility] [address] [place] [address] [phone] Slime Deluna RN 04/14/2025 Telephone [facility] [address] [place] [phone] Slime Deluna RN 04/06/2025 Orders Only [facility] [address] [place] [address] [phone] Slime Deluna RN 04/05/2025 Telephone [facility] [address] [place] [phone] Ivet Nelson MD No Show 03/30/[address] [address] Ivet Nelson MD R/S appt 04/0903/29/2025 2:00 PM EDT Office Visit [address] [address] Blake Enciso MD Opioid dependence, uncomplicated ([facility]) (Primary Dx) 03/29/2025 Orders Only GENERIC EXTERNAL DATA DEPARTMENT Provider, Generic External Data 03/29/[address] [address] Slime Deluna RN Opioid dependence, uncomplicated (CMS/HCC) 03/29/2025 Travel 03/22/2025 Telephone [facility] [address] [place] [address] [phone] Slime Deluna RN 03/22/[address] [address] Slime Deluna RN Opioid dependence, uncomplicated (CMS/[facility]) from Last 3 Months Immunizations Immunization Administration Dates Next Due DTaP, 5 pertussis antigens 05/17/2003,,1999,1999,0 1999 HPV, Quadrivalent 09/21/2014,03/09/2014,09/18/19 14 Hep A, ped/adol, 2 dose 10/11/2011,04/11/2011 Hep B, Adolescent or Pediatric 05/14/2001,1999,1999 Hib (HbOC) 12/25/2001 IPV 05/17/2003,07/02/2000,1999 ,1999 Influenza, IIV3, injectable 07/26/2006 MMR 05/17/2003,05/02/2000 Meningococcal MCV4P ACYW-135 09/22/2015,11/24/19 11 Pneumococcal Conjugate PCV 7 07/02/2000,05/02/20 00 Rotavirus Pentavalent (3 dose) 05/20/2000 Tdap 04/05/2017,11/23/2010 Varicella 03/30/2013,05/20/2000,05/02/2000 Social History [...] Sign Reading Time Taken Comments Blood Pressure 136/85 05/25/2025 1:43 PM EST Pulse 92 05/25/2025 1:43 PM EST Temperature 36.4 C (97.5 F) 05/25/2025 1:43 PM EST Respiratory Rate 18 05/25/2025 1:43 PM EST Oxygen Saturation 98% 06/17/2023 1:07 PM EST Inhaled Oxygen Concentration - - Weight 66.9 kg (147 lb 6.4 oz) 06/17/2023 1:07 P M EST Height 159.9 cm (5' 2.95 ) 06/17/2023 1:07 PM ES T Body Mass Index 26.16 06/17/2023 1:07 PM EST Plan of Treatment Upcoming Encounters Date Type Department Care Team (Late st Contact Info) Description 06/22/2025 1:15 PM EST Clinical Support [facility] [address] [place] [address] [phone] Slime Deluna RN 07/09/2025 10:00 AM EST Office Visit [facility] [address] [place] [address] [phone] Ivet Nelson MD [address] [place] [phone] Health Maintenance Due Date Last Done Comments [...] Vaccine Completed 09/22/2015, 011 HIV Screening Completed 05/25/2025, 03/02, 12/01/2024, Additional history exists Hepatitis C Screening Completed 05/25/2025 , 03/29/2025, 12/01/2024, Additional history exists Meningococcal B Vaccine Aged Out No l onger eligible based on patient's age to complete this topic RSV under 20 months Aged Out No longe r eligible based on patient's age to complete this topic Procedures Procedure Name Priority Date/Time Associated Diagnosis Comments HIV ANTIBODY/ANTIGEN ([facility]) Routine 05/25/2025 HEPATITIS C ANTIBODY ([facility]) Routine 05/25/2025 SYPHILIS ABS ([facility]) Routine 05/25/2025 CHLAMYDIA/GONORRHEA VAGINAL SWAB ([facility]) Routine 05/25/2025 CHLAMYDIA/N. GONORRHOEAE RNA, TMA, UROGENITAL Routine 05/05/2025 10:30 AM EST BACTERIAL VAGINOSIS PANEL Routine 05/05/2025 10:30 AM EST CHLAMYDIA/GONORRHEA VAGINAL SWAB ([facility]) Routine 03/31/2025 [...] 1:51 PM EDT Opioid dependence, uncomplicated (CMS/HCC) HM PAP/HPV Routine 09/18/2023 12:00 AM EDT LIPID PANEL, STANDARD Routine 12/26/2020 1:46 PM EDT from Last 3 Months or Most Recently Relevant to Health Maintenance Results * Chlamydia/Gonorrhea Vaginal Swab ([facility]) (05/25/2025) Only the most recent of2 resultswithin the time period is included. Pathologist [facility] Chlamydia Vaginal Swab Negative Negative, Indeterminate, None Detected, Trace, 3+, Specimen unsatisfactory for evaluation, Weakly Positive, 1+, 2+ Gonorrhea Vaginal Swab Negative Negative, Indeterminate, None Detected, Trace, 3+, Specimen unsatisfactory for evaluation, Weakly Positive, 1+, 2+ Swab Vaginal structure / Unknown 05/25/2025 Result [facility] Provider LAB MICROBIOLOGY - GENERA L ORDERABLES Edited Result - Final * Syphilis Antibodies ([facility]) (05/25/2025) Pathologist [facility] Syphilis Abs Nonreactive Borderline, Nonreactive, Weakly Reactive, Inconclusive, Specimen unsatisfactory for evaluation Blood Venous blood specimen / Unknown 05/25/2025 Result [facility] Provider MD LAB BLOOD ORDERABLES Edit ed Result - Final * Hepatitis C Antibody ([facility]) (05/25/2025) Pathologist [facility] Hepatitis C Ab Nonreactive Blood 05/25/2025 Result [facility] MD LAB BLOOD ORDERABLES Edit ed Result - Final * HIV Ab/Ag ([facility]) (05/25/2025) Pathologist [facility] HIV Ag/Ab Nonreactive Blood 05/25/2025 Result [facility] MD LAB BLOOD ORDERABLES Edit ed Result - Final * (ABNORMAL) Bacterial Vaginosis (05/05/2025 10:30 AM EST) [facility] TRICHOMONAS VAGINALIS DETECTION BY PCR NOT DETECTED Not Detect [facility] BACTERIAL VAGINOSIS DETECTION BY PCR POSITIVE(A) Negative [facility] Comment:The BV organism targ ets of the Xpert Xpress MVP test can becommensal in women; Xpert Xpress MVP positive results forbacterial vaginosis should be considered in conjunction withother clinical and patient information to determine thedisease status. Organisms that are not detected by the XpertXpress MVP test have also been reported to be associatedwith BV and aerobic vaginitis.The Xpert Xpress MVP test performance has not been evaluatedin patients under the age of 14. DANUTA GROUP DETECTION BY PCR NOT DETECTED Not Detect [facility] Danuta glab krusei PCR NOT DETECTED Not Detect [facility] 05/05/2025 10:3 0 AM EST 05/05/2025 3:14 PM EST us Generic External Data Provider LAB MICROBIOLOGY - GENERAL ORDERABLES Final Result [facility] [address] [place] [phone] * Chlamydia/N. Gonorrhoeae RNA, TMA, Urogenitial (05/05/2025 10:30 AM EST) CT PCR NOT DETECTED Not Detect. [facility] Comment:A not detected test result does not exclude the possibilityof infection because test results can be affected byimproper specimen collection, concurrent antibiotic therapy,or the number of organisms in the specimen which may bebelow the sensitivity of the test. As with many diagnostictests, results from the Xpert CT/NG assay should beinterpreted in conjunction with other laboratory andclinical data available to the clinician.Xpert CT/NG performance has not been evaluated in patientsless than 14 years of age. The assay should not be used forthe evaluationof suspected sexual abuse or for other medico-legalindications. Additional testing is recommended in anycircumstance when false positive or false negative resultscould lead to adverse medical, social or psychologicalconsequences. NG PCR NOT DETECTED Not Detect. [facility] Comment:A not detected test result does not exclude the possibilityof infection because test results can be affected byimproper specimen collection, concurrent antibiotic therapy,or the number of organisms in the specimen which may bebelow the sensitivity of the test. As with many diagnostictests, results from the Xpert CT/NG assay should beinterpreted in conjunction with other laboratory andclinical data available to the clinician.Xpert CT/NG performance has not been evaluated in patientsless than 14 years of age. The assay should not be used forthe evaluationof suspected sexual abuse or for other medico-legalindications. Additional testing is recommended in anycircumstance when false positive or false negative resultscould lead to adverse medical, social or psychologicalconsequences. 05/05/2025 10:3 0 AM EST 05/05/2025 3:14 PM EST us Generic External Data Provider LAB MICROBIOLOGY - GENERAL ORDERABLES Final Result Performing Organization Address [facility] de Phone Number [facility] [address] [place] [phone] * Syphilis Screen (03/29/2025 1:51 PM EDT) Syphilis Screen Nonreactive Nonreactive [facility] Blood 03/29/2025 1:51 PM EDT 03/29/2025 4:05 PM EDT Blake Enciso MD LAB BLOOD ORDERABLES Final Resul t Performing Organization Address [facility] de Phone Number [facility] [address] [place] [phone] * SST GOLD TOP TO HOLD (03/29/2025 1:51 PM EDT) Hold Gold See Note [facility] Comment:Specimen held untest ed for 24 hours; Call to requestChemistry testing. 03/29/2025 1:51 PM EDT 03/29/2025 4:05 PM EDT us Generic External Data Provider LAB BLOOD ORDERAB LES Final Result Performing Organization Address [facility]/ZIP Co de Phone Number [facility] [address] [place] [phone] * T-SPOT??.TB (03/29/2025 1:51 PM EDT) T Spot TB Negative Negative [facility] Comment:A negative test resu lt does [...] as aquantitative test. TS PANEL A 0 [facility] TS PANEL B 0 [facility] Negative Control Passed [facility] Positive Control Passed [facility] Comment:For additional infor dana, please refer tohttp://education.[employer]/faq/NSU312(This link is being provided for informational/educational purposes only.)THIS TEST WAS PERFORMED AT:[email or web address] [id number] [place] [id number] PRETTY MD,PHD 03/29/2025 1:51 PM EDT 03/29/2025 4:05 PM EDT us Blake Enciso MD LAB BLOOD ORDERABLES Final Resul t Performing Organization Address City/[facility]/ZIP Co de Phone Number [facility] [address] [place] [phone] * (ABNORMAL) CBC auto differential (03/29/2025 1:51 PM EDT) White Blood Count 5.2 4.8 - 10.8 X10*3/uL [facility] Red Blood Count 4.57 4.20 - 5.50 X10*6/uL [facility] Hemoglobin 12.5 12.0 - 16.0 g/dl [facility] Hematocrit 37.8 37.0 - 47.0 % [facility] Mean Corpuscular Volume 82.7 80.0 - 98.0 fL [facility] Mean Corpuscular Hemoglobin 27.4 27.0 - 33.0 pg [facility] Mean Corpuscular HGB Conc 33.1 31.0 - 35.0 g/dl [facility] Red Cell Distribution Width 16.3(H) 11.0 - 16.0 % [facility] Platelet Count 313 160 - 400 X10*3/uL [facility] Mean Platelet Volume 10.4 9.4 - 12.3 fL [facility] Neutrophils Percent Auto 55.8 45 - 73 % [facility] Imm Gran Pct Auto 0.4 0.0 - 0.4 % [facility] Lymphocytes Percent Auto 35.0 20 - 40 % [facility] Monocytes Percent Auto 6.7 2 - 11 % [facility] Eosinophils Percent Auto 1.7 0 - 4 % [facility] Basophils Percent Auto 0.4 0 - 2 % [facility] NRBC Pct Auto 0.0 0.0 - 0.2 /100WBC [facility] Neutrophils Absolute Auto 2.9 2.0 - 8.3 x10*3/uL [facility] Imm Gran Abs Auto 0.02 0.00 - 0.03 X10*3/uL [facility] Lymphocytes Absolute Auto 1.8 1.2 - 4.9 X10*3/uL [facility] Monocytes Absolute Auto 0.4 0.1 - 1.2 X10*3/uL [facility] Eosinophils Absolute Auto 0.1 0.0 - 0.4 X10*3/uL [facility] Basophils Absolute Auto 0.0 0.0 - 0.2 X10*3/uL [facility] NRBC Abs Auto 0.000 0.0 - 0.012 X10*3/uL [facility] 03/29/2025 1:51 PM EDT 03/29/2025 4:05 PM EDT Generic External Data Provider LAB BLOOD ORDERAB LES Final Result Performing Organization Address [facility]/ZIP Co de Phone Number [facility] [address] [place] [phone] * Hepatitis C Antibody with Reflex to HCV, RNA, Quantitative, Real-Time PCR (03/29/2025 1:51 PM EDT) Hepatitis C Antibody Nonreactive Nonreactive [facility] Comment:Antibodies to HCV no t detected; does not exclude early acuteHCV infection. Blood Venous blood specimen / Unknown 03/29/2025 1:51 PM EDT 03/29/2025 4:05 PM EDT Blake Enciso MD LAB BLOOD ORDERABLES Final Resul t Performing Organization Address [facility] Co de Phone Number [facility] [address] [place] [phone] * Iron And Total Iron Binding Capacity (03/29/2025 1:51 PM EDT) Iron 69 30 - 160 mcg/dL [facility] Total Iron Binding Capacity 269 228 - 428 mcg/dL [facility] Percent Iron Saturation 26 15 - 50 % [facility] Unsaturated Iron Binding 200 ug/dL [facility] 03/29/2025 1:51 PM EDT 03/29/2025 4:05 PM EDT Generic External Data Provider LAB BLOOD ORDERAB LES Final Result Performing Organization Address [facility] Co de Phone Number [facility] [address] [place] [phone] * Hepatitis A Antibody, Total (03/29/2025 1:51 PM EDT) Hepatitis A Antibody IgG REACTIVE Nonreactive [facility] Comment:The presence of IgG anti-HAV implies past HAV infection(recent or distant) or vaccination against HAV. 03/29/2025 1:51 PM EDT 03/29/2025 4:05 PM EDT us Blake Enciso MD LAB BLOOD ORDERABLES Final Resul t Performing Organization Address [facility] Co de Phone Number [facility] [address] [place] [phone] * Hepatitis B surface antigen, EIA (03/29/2025 1:51 PM EDT) Hepatitis B Surface Ag Negative Negative [facility] Blood Venous blood specimen / Unknown 03/29/2025 1:51 PM EDT 03/29/2025 4:05 PM EDT us Blake Enciso MD LAB BLOOD ORDERABLES Final Resul t Performing Organization Address [facility] Co de Phone Number [facility] [address] [place] [phone] * Hepatitis B Core Antibody, Total (03/29/2025 1:51 PM EDT) Hepatitis B Core Antibody Nonreactive Nonreactive [facility] Blood Venous blood specimen / Unknown 03/29/2025 1:51 PM EDT 03/29/2025 4:05 PM EDT us Blake Enciso MD LAB BLOOD ORDERABLES Final Resul t Performing Organization Address [facility] Co de Phone Number [facility] [address] [place] [phone] * HIV-1/2 Antigen and Antibodies, Fourth Generation, with Reflexes (03/29/2025 1:51 PM EDT) [facility] HIV AB/AG Nonreactive Nonreactive [facility] Comment:HIV-1 p24 Ag and/or HIV-1/HIV-2 Ab not detected.A test result that is nonreactive does not exclude thepossibility of exposure to or infection with HIV-1 and/orHIV-2. Nonreactive results in this assay for individualswith prior exposure to HIV-1 and/or HIV-2 may be due toantigen and antibody levels that are below the limit ofdetection of this assay.The [employer] HIV Ag/Ab Combo assay result andsupplemental assay results should be interpreted inconjunction with the patient's clinical presentation,history and other laboratory results. If the results areinconsistent with clinical evidence, additional testing issuggested to confirm the result. Blood Venous blood specimen / Unknown 03/29/2025 1:51 PM EDT 03/29/2025 4:05 PM EDT us Blake Enciso MD LAB BLOOD ORDERABLES Final Resul t Performing Organization Address [facility] Hospital/[facility]/ZIP Co de Phone Number [facility] [address] [place] [phone] * Hepatitis B Surface Antibody, Qualitative (03/29/2025 1:51 PM EDT) [facility] ~Hepatitis B Surface Antibody REACTIVE Nonreactive [facility] Comment:REACTIVE: > 11.99 mI U/mL Blood Venous blood specimen / Unknown 03/29/2025 1:51 PM EDT 03/29/2025 4:05 PM EDT us Blake Enciso MD LAB BLOOD ORDERABLES Final Resul t Performing Organization Address City/[facility]/ZIP Co de Phone Number [facility] [address] [place] [address] [phone] * Ferritin (03/29/2025 1:51 PM EDT) Ferritin 50 10 - 122 ng/mL [facility] 03/29/2025 1:5 1 PM EDT 03/29/2025 4:05 PM EDT us Generic External Data Provider LAB BLOOD ORDERAB LES Final Result [facility] [address] [place] [address] [phone] * (ABNORMAL) Comprehensive Metabolic Panel (03/29/2025 1:51 PM EDT) Sodium 140 135 - 145 mmol/L [facility] Potassium 3.7 3.3 - 5.1 mmol/L [facility] Chloride 105 96 - 108 mmol/L [facility] Carbon Dioxide 27 22 - 29 mmol/L [facility] Anion Gap 12 12 - 20 [facility] Urea Nitrogen (BUN) 10 9 - 16 mg/dL [facility] Creatinine, Serum 0.56 0.5 - 1.4 mg/dL [facility] Estimated Glomerular Filt Rate >60 [facility] Comment:Chronic Kidney Disea se: Estimated GFR < 60 mL/min/1.31j4Wfulyl Kidney Disease: Estimated GFR < 15 mL/min/1.73m2 Glucose 93 60 - 115 mg/dL [facility] Calcium 9.2 8.4 - 10.2 mg/dL [facility] Bilirubin, Total 0.2 0.0 - 1.0 mg/dL [facility] Aspartate Amino Transferase 60(H) 5 - 31 U/L [facility] Alanine Aminotransferase 87(H) 0 - 31 U/L [facility] Total Protein 7.4 6.5 - 8.0 g/dL [facility] Albumin Level 4.5 3.5 - 5.0 g/dL [facility] Alkaline Phosphatase 56 39 - 117 U/L [facility] 03/29/2025 1:51 PM EDT 03/29/2025 4:05 PM EDT us Generic External Data Provider LAB BLOOD ORDERAB LES Final Result [facility] [address] [place] [phone] * (ABNORMAL) HM PAP/HPV (09/18/2023 12:00 AM EDT) Pap Smear 4. LSIL(A) 1. NILM us Historical Provider HEALTH MAINTENANCE Edited Result - Final * (ABNORMAL) LIPID PANEL, STANDARD (12/26/2020 1:46 PM EDT) Chol/HDLC Ratio 2.7 <5.0 (calc) [facility] Cholesterol, Total 110 <200 mg/dL [facility] HDL Cholesterol 41(L) > OR = 50 mg/dL [facility] LDL Cholesterol 52 mg/dL (calc) [facility] Comment: Reference range: <100 Desirable range <100 mg/dL for primary prevention; <70 mg/dL for patients with CHD or diabetic patients with > or = 2 CHD risk factors. LDL-C is now calculated using the Socrates-Katelynn calculation, which is a validated novel method providing better accuracy than the Friedewald equation in the estimation of LDL-C. Socrates LYNCH et al. SHELBY. 2013;310(19): 5178-0768 (http://education.[employer]iderOak.com/faq/QMV815) Non-HDL Cholesterol 69 <130 mg/dL (calc) [facility] Comment: For patients with diabetes plus 1 major ASCVD risk factor, treating to a non-HDL-C goal of <100 mg/dL (LDL-C of <70 mg/dL) is considered a therapeutic option. Triglycerides 90 <150 mg/dL [facility] 12/26/2020 1:46 PM EDT us Hollie Martines NATIONAL INSURANCE OFFICER LAB BLOOD ORDERABLES Final Result [facility] [address] from Last 3 Months or Most Recently Relevant to Health Maintenance Insurance [facility] [id number]
--- OUTSIDE RECORDS SUMMARY | 2025-06-08 00:49 | XMS_ITS | Encounter Summary ---
Author Organization [employer] Address 75 [facility] 7t [place] [address] Care Team Providers Care Air Traffic Control Operator Name Role Phone Unavailable Primary Care Provider Unavailabl e Reason for Visit * Reason Comments Med Refill Encounter Details Date Type Department Care Team ([facility] st Contact Info) Description 09/16/2023 Refill [facility] [address] [place], [place] [phone] Blake Enciso MD [address] [place], [place] [phone] Uncomplicated opioid dependence (CMS/HCC) Social History Tobacco [...] Description 06/22/2025 1:15 PM EST Clinical Support [facility] [address] [place] [phone] Slime Deluna RN 07/09/2025 10:00 AM EST Office Visit [facility] [address] [place] [phone] Ivet Nelson MD [address] [place] [phone] documented as of this encounter Visit Diagnoses Diagnosis Uncomplicated opioid dependence (CMS/HCC) (HCC) documented in this encounter Additional Health Concerns Assessment Noted Time PHQ-9 Depression Total Score: 11 023 11:56 AM EDT documented as of this encounter
--- OUTSIDE RECORDS SUMMARY | 2025-06-08 00:49 | XMS_ITS | Encounter Summary ---
Author Organization [employer] Address 75 [facility] 7t [place] [address] Care Team Providers Care Erco Machine Operator Name Role Phone Unavailable Primary Care Provider Unavailabl e Reason for Visit * Reason Comments Med Refill Encounter Details Date Type Department Care Team ([facility] st Contact Info) Description 04/29/2025 Refill [facility] [address] [place] [address] Blake Enciso MD 230 [place] [address] Social History Tobacco Use Types Packs/Day Years [...] Description 06/22/2025 1:15 PM EST Clinical Support [address] [address] Slime Deluna RN 07/09/2025 10:00 AM EST Office Visit [facility] [address] [place] [phone] Ivet Nelson MD [address] [place] [phone] documented as of this encounter Visit Diagnoses Not on filedocumented in this encounter Additional Health Concerns Assessment Noted Time PHQ-9 Depression Total Score: 2 02/11/20 25 3:28 PM EDT documented as of this encounter
--- OUTSIDE RECORDS SUMMARY | 2025-06-08 00:49 | XMS_ITS | Clinical Summary ---
Author Organization [facility] Address [address] [place] [address] Care Team Providers Care Roller Maker Name Role Phone Physician, No Pcp Primary Care Provider Unavaila ble Allergies Active Allergy Reactions Criticality Noted Date Comments Fluoxetine Hives 10/22/2023 Hives/Urticaria Penicillins Hives 12/07/2019 Hives/Urticaria Medications aspirin 81 mg EC tablet Take 2 Tablets by mouth daily. 11/28/2023 Active blood pressure test kit (BLOOD PRESSURE MONITOR [facility]) USE TO CHECK BLOOD PRESSURE EVERY DAY NEEDED 10/01/2023 Active docusate sodium (COLACE) 100 mg capsule TAKE 1 OR 2 CAPSULES BY MOUTH AT BEDTIME NEEDED FOR CONSTIPATION. 09/17/2023 Active hydrOXYzine pamoate (VISTARIL) 25 mg capsule Take 1 Capsule by mouth 3 times daily as needed for Itching. 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 Exaggerated stress response - seen by cardiology multiple times after first during which she had PIH and continued to have elevated BPs for months after , as well as elevated BPs in emergency settings. Per cards notes , possibly she has an exagerrated stress response, rather than true cHTN- conservatively can treat at [facility] in as we have elevated BPS [...] second trimester 10/22/2023 Overview (03/26/2024): [place] [facility] Pt with unknown LMP . 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 For example, child therapist or elderly care for an older adult? [...] Cancer Screening: Pap Smear 2020 COVID-19 Vaccine (1 - season) 2025 Influenza Vaccine (#1) 2025 [...] topic Insurance MEDICAID - [place] Care Teams Roller Maker Relationship Specialty Start Date End Date Physician, No Pcp PCP - General 08/05/24
--- OUTSIDE RECORDS SUMMARY | 2025-06-08 00:49 | XMS_ITS | Encounter Summary ---
Author Organization [employer] Address [address] [facility] [address] 7t [place] [address] Care Team Providers Care Machine Greaser Name Role Phone Unavailable Primary Care Provider Unavailabl e Encounter Details Date Type Department Care Team (Late st Contact Info) Description 11/26/2023 Orders Only [facility] 230 [place], [place] [phone] Blake Enciso MD 230 [place], [place] [phone] Social History Tobacco Use Types Packs/Day Years [...] t he electric, gas, oil or water [employer] threatened to shut off services in your [...] Description 06/22/2025 1:15 PM EST Clinical Support [facility] [address] [place] [phone] Slime Deluna RN 07/09/2025 10:00 AM EST Office Visit [facility] [address] [place] [phone] Ivet Nelson MD [address] [place] [phone] documented as of this encounter Visit Diagnoses Not on filedocumented in this encounter Additional Health Concerns Assessment Noted Time PHQ-9 Depression Total Score: 11 023 11:56 AM EDT documented as of this encounter
--- OUTSIDE RECORDS SUMMARY | 2025-06-08 00:49 | XMS_ITS | Encounter Summary ---
Author Organization [employer] Address [address] [facility] [address] 7t [place] [address] Care Team Providers Care Quill Worker Name Role Phone Unavailable Primary Care Provider Unavailabl e Encounter Details Date Type Department Care Team ([facility] st Contact Info) Description 08/12/2024 Orders Only [facility] 230 [place] [address] Blake Enciso MD [address] [place] [address] Social History Tobacco Use Types Packs/Day Years [...] Description 06/22/2025 1:15 PM EST Clinical Support [facility] [address] [place] [phone] Slime Deluna RN 07/09/2025 10:00 AM EST Office Visit [facility] [address] [place] [phone] Ivet Nelson MD [address] [place] [phone] documented as of this encounter Visit Diagnoses Not on filedocumented in this encounter Additional Health Concerns Assessment Noted Time PHQ-9 Depression Total Score: 15 024 8:21 AM EST documented as of this encounter
--- OUTSIDE RECORDS SUMMARY | 2025-06-08 00:49 | XMS_ITS | Encounter Summary ---
Author Organization [employer] Address 75 [facility] 7t [place] [address] Care Team Providers Care Remote Sensing Engineer Name Role Phone Unavailable Primary Care Provider Unavailabl e Reason for Visit * Reason Onset Date Comments Med Change Request Prior Authorization 06/17/2023 Encounter Details Date Type Department Care Team ([facility] st Contact Info) Description 06/17/2023 Refill [facility] 230 [place], [place] [phone] Hanna Mills MD 230 [place], [place] [phone] Social History Tobacco Use Types Packs/Day Years [...] Spring Casas - 06/26/2023 11:02 AM EST Cloth Weigher called [facility], spoke with pharmacy staff who stated PA not needed for vitamins and confirmed pt picked up med on 06/19. documented in this encounter Plan of Treatment Upcoming Encounters Date Type Department Care Team (Late st Contact Info) Description 06/22/2025 1:15 PM EST Clinical Support [facility] [address] [place] [phone] Slime Deluna RN 07/09/2025 10:00 AM EST Office Visit [facility] [address] [place] [phone] Ivet Nelson MD [address] [place] [phone] documented as of this encounter Visit Diagnoses Not on filedocumented in this encounter Additional Health Concerns Assessment Noted Time PHQ-9 Depression Total Score: 11 023 11:56 AM EDT documented as of this encounter
--- OUTSIDE RECORDS SUMMARY | 2025-06-08 00:50 | XMS_ITS | Encounter Summary ---
Author Organization [employer] Address 75 [facility] 7t [place] [address] Care Team Providers Care Food Service Hotel Runner Name Role Phone Unavailable Primary Care Provider Unavailabl e Encounter Details Date Type Department Care Team ([facility] Contact Info) Description 11/21/2022 Telephone [facility] [address] [place] [address] [phone] Hanna Mills MD [address] [place] [address] [phone] Social History Tobacco Use Types Packs/Day Years [...] Upcoming Encounters Date Type Department Care Team ([facility] Contact Info) Description 06/22/2025 1:15 PM EST Clinical Support [facility] [address] [place] [address] [phone] Slime Deluna RN 07/09/2025 10:00 AM EST Office Visit [facility] 230 [place] [address] Ivet Nelson MD 230 [place] [phone] documented as of this encounter Visit Diagnoses Not on filedocumented in this encounter Additional Health Concerns Assessment Noted Time PHQ-9 Depression Total Score: 5 07/23/19 23 3:04 PM EST documented as of this encounter
--- OUTSIDE RECORDS SUMMARY | 2025-06-08 00:50 | XMS_ITS | Encounter Summary ---
Author Organization [employer] Address [address] [facility] [address] 7t [place] [address] Care Team Providers Care Ore Miner Name Role Phone Unavailable Primary Care Provider Unavailabl e Encounter Details Date Type Department Care Team ([facility] st Contact Info) Description 07/21/[address] [facility] 230 [place], [place] [phone] Blake Enciso MD 230 [place] [address] Social History Tobacco Use Types Packs/Day Years [...] Description 06/22/2025 1:15 PM EST Clinical Support [facility] [address] [place] [address] 24067 Slime Deluna RN 07/09/2025 10:00 AM EST Office Visit [facility] [address] [place] [phone] Ivet Nelson MD [address] [place] [phone] documented as of this encounter Visit Diagnoses Not on filedocumented in this encounter Additional Health Concerns Assessment Noted Time PHQ-9 Depression Total Score: 15 024 8:21 AM EST documented as of this encounter
--- OUTSIDE RECORDS SUMMARY | 2025-06-08 00:50 | XMS_ITS | Encounter Summary ---
Author Organization [employer] Address 75 [facility] 7t [place] [address] Care Team Providers Care Cooler Operator Name Role Phone Unavailable Primary Care Provider Unavailabl e Reason for Visit * Reason Onset Date Comments Med Refill 11/02/2022 Encounter Details Date Type Department Care Team ([facility] st Contact Info) Description 11/02/2022 Telephone [facility] 230 [place] [address] Hanna Mills MD 230 [place] [address] Med Refill Social History Tobacco Use Types [...] MG immediate release tablet Please sent to [facility]/pharmacy #[id number] [facility] [phone] [facility] documented in this encounter Plan of Treatment Upcoming Encounters Date Type Department Care Team (Late st Contact Info) Description 06/22/2025 1:15 PM EST Clinical Support [facility] [address] [place] [phone] Slime Deluna RN 07/09/2025 10:00 AM EST Office Visit [facility] [address] [place] [address] [phone] Ivet Nelson MD [address] [place] [phone] documented as of this encounter Visit Diagnoses Not on filedocumented in this encounter Additional Health Concerns Assessment Noted Time PHQ-9 Depression Total Score: 5 07/23/19 3:04 PM EST documented as of this encounter
--- OUTSIDE RECORDS SUMMARY | 2025-06-08 00:50 | XMS_ITS | Encounter Summary ---
Author Organization [employer] Address 75 [facility] 7t [place] [address] Care Team Providers Care Manufacturing Area Manager Name Role Phone Unavailable Primary Care Provider Unavailabl e Reason for Visit * Reason Onset Date Comments Med Refill 06/21/2024 Encounter Details Date Type Department Care Team ([facility] st Contact Info) Description 06/21/2024 Refill [facility] 230 [place] [address] Blake Enciso MD [address] [place] [address] Opioid type dependence, continuous (CMS/HCC) Social History [...] Description 06/22/2025 1:15 PM EST Clinical Support [facility] [address] [place] [phone] Slime Deluna RN 07/09/2025 10:00 AM EST Office Visit [facility] [address] [place] [phone] Ivet Nelson MD [address] [place] [address] [phone] documented as of this encounter Visit Diagnoses Diagnosis Opioid type dependence, continuous (CMS/HCC) (HCC) Opioid type dependence, continuous documented in this encounter Additional Health Concerns Assessment Noted Time PHQ-9 Depression Total Score: 15 024 8:21 AM EST documented as of this encounter
--- OUTSIDE RECORDS SUMMARY | 2025-06-08 00:50 | XMS_ITS | Encounter Summary ---
Author Organization [employer] Address [address] [facility] [address] 7t [place] [address] Care Team Providers Care Pain Medicine Physician Name Role Phone Unavailable Primary Care Provider Unavailabl e Encounter Details Date Type Department Care Team ([facility] st Contact Info) Description 04/30/2023 Orders Only [facility] 230 [place], [place] [phone] Blake Enciso MD 230 [place] [address] Social History Tobacco Use Types Packs/Day Years [...] Description 06/22/2025 1:15 PM EST Clinical Support [facility] [address] [place] [phone] Slime Deluna RN 07/09/2025 10:00 AM EST Office Visit [facility] [address] [place] [address] Ivet Nelson MD [address] [place] [address] [phone] documented as of this encounter Visit Diagnoses Not on filedocumented in this encounter Additional Health Concerns Assessment Noted Time PHQ-9 Depression Total Score: 11 023 11:56 AM EDT documented as of this encounter
--- OUTSIDE RECORDS SUMMARY | 2025-06-08 00:50 | XMS_ITS | Encounter Summary ---
Author Organization [employer] Address 75 [facility] 7t [place] [address] Care Team Providers Care Clinical Applications Specialist Name Role Phone Unavailable Primary Care Provider Unavailabl e Encounter Details Date Type Department Care Team ([facility] Contact Info) Description 09/25/2022 Orders Only [facility] MEDICINE [address] [place] [address] [phone] Hanna Mills MD [address] [place] [address] [phone] 8 weeks gestation of (Primary Dx) Social [...] Department Care Team (Late Contact Info) Description 06/22/2025 1:15 PM EST Clinical Support [facility] MED[facility]INE [address] [place] [address] [phone] Slime Deluna RN 07/09/2025 10:00 AM EST Office Visit [facility]INE 230 [facility], [place] [phone] Ivet Nelson MD 230 [place] [address] documented as of this encounter Visit Diagnoses Diagnosis 8 weeks gestation of - Primary documented in this encounter Additional Health Concerns Assessment Noted Time PHQ-9 Depression Total Score: 5 07/23/19 23 3:04 PM EST documented as of this encounter
--- OUTSIDE RECORDS SUMMARY | 2025-06-08 00:50 | XMS_ITS | Encounter Summary ---
Author Organization [employer] Address [address] [facility] [address] 7t [place] [address] Care Team Providers Care Funeral Service Licensee Name Role Phone Unavailable Primary Care Provider Unavailabl e Encounter Details Date Type Department Care Team (Late st Contact Info) Description 08/10/2024 Orders Only [facility] 230 [place] [address] Slime Deluna RN Opioid dependence, uncomplicated (CMS/HCC) [...] Description 06/22/2025 1:15 PM EST Clinical Support [facility] [address] [place] [phone] Slime Deluna RN 07/09/2025 10:00 AM EST Office Visit [facility] [address] [place] [phone] Ivet Nelson MD [address] [place] [phone] documented as of this encounter Visit Diagnoses Diagnosis Opioid dependence, uncomplicated (CMS/HCC) (HCC) documented in this encounter Additional Health Concerns Assessment Noted Time PHQ-9 Depression Total Score: 15 024 8:21 AM EST documented as of this encounter
--- OUTSIDE RECORDS SUMMARY | 2025-06-08 00:50 | XMS_ITS | Encounter Summary ---
Author Organization [employer] Address [address] [facility] [address] 7t [place] [address] Care Team Providers Care Exchange Mechanic Name Role Phone Unavailable Primary Care Provider Unavailabl e Encounter Details Date Type Department Care Team ([facility] st Contact Info) Description 06/12/2024 Orders Only [facility] 230 [place] [address] Blake Enciso MD 230 [place] [address] Social History Tobacco Use Types Packs/Day Years [...] Description 06/22/2025 1:15 PM EST Clinical Support [facility] MEDICINE [address] [place] [phone] Slime Deluna RN 07/09/2025 10:00 AM EST Office Visit [facility] MEDICINE [address] [place] [phone] Ivet Nelson MD [address] [place] [phone] documented as of this encounter Visit Diagnoses Not on filedocumented in this encounter Additional Health Concerns Assessment Noted Time PHQ-9 Depression Total Score: 024 8:21 AM EST documented as of this encounter
--- OUTSIDE RECORDS SUMMARY | 2025-06-08 00:50 | XMS_ITS | Encounter Summary ---
Author Organization [employer] Address 75 [facility] 7t [place] [address] Care Team Providers Care Watershed Coordinator Name Role Phone Unavailable Primary Care Provider Unavailabl e Reason for Visit * Reason Onset Date Comments Med Refill 06/21/2024 Encounter Details Date Type Department Care Team ([facility] st Contact Info) Description 06/21/2024 Refill [facility] [address] [place], [place] [phone] Hanna Mills MD [address] [place], [place] [phone] Social History Tobacco Use Types Packs/Day Years [...] Description 06/22/2025 1:15 PM EST Clinical Support [facility] [address] [place] [phone] Slime Deluna RN 07/09/2025 10:00 AM EST Office Visit [facility] [address] [place] [phone] Ivet Nelson MD [address] [place] [phone] documented as of this encounter Visit Diagnoses Not on filedocumented in this encounter Additional Health Concerns Assessment Noted Time PHQ-9 Depression Total Score: 15 024 8:21 AM EST documented as of this encounter
--- OUTSIDE RECORDS SUMMARY | 2025-06-08 00:50 | XMS_ITS | Encounter Summary ---
Author Organization [employer] Address 75 [facility] 7t [place] [address] Care Team Providers Care Steam Distribution Supervisor Name Role Phone Unavailable Primary Care Provider Unavailabl e Encounter Details Date Type Department Care Team ([facility] Contact Info) Description 07/25/2022 Orders Only [facility] [address] [place] [address] [phone] Hanna Mills MD [address] [place] [address] [phone] Iron deficiency anemia due to chronic blood [...] Upcoming Encounters Date Type Department Care Team ([facility] Contact Info) Description 06/22/2025 1:15 PM EST Clinical Support [facility] [address] [place] [phone] Slime Deluna RN 07/09/2025 10:00 AM EST Office Visit [facility] [address] [place], [place] [phone] Ivet Nelson MD [address] [place] [phone] documented as of this encounter Visit Diagnoses Diagnosis Iron deficiency anemia due to chronic 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
--- OUTSIDE RECORDS SUMMARY | 2025-06-08 00:50 | XMS_ITS | Encounter Summary ---
Author Organization [employer] Address 75 [facility] 7t [place] [address] Care Team Providers Care Plastic Welding Machine Operator Name Role Phone Unavailable Primary Care Provider Unavailabl e Encounter Details Date Type Department Care Team (Late Contact Info) Description 01/11/2023 Abstract [facility] [address] [place] [phone] Hanna Mills MD [address] [place] [address] [phone] Social History Tobacco Use Types Packs/Day Years [...] Description 06/22/2025 1:15 PM EST Clinical Support [facility] [address] [place] [address] [phone] Slime Deluna RN 07/09/2025 10:00 AM EST Office Visit [facility] [address] [place] [address] Ivet Nelson MD 230 [place] [phone] documented as of this encounter Procedures Procedure Name Priority Date/Time Associated Diagnosis Comments PAP/HPV Routine 11/01/2020 documented in this encounter Results * Pap Smear (11/01/2020) Pap Negative for intraephithelial lesion or malignancy Negative for intraephithelial lesion or malignancy, Other 11/01/2020 [facility] External Provider HEALTH MAINTENANCE Final Result documented in this encounter Visit Diagnoses Not on filedocumented in this encounter Additional Health Concerns Assessment Noted Time PHQ-9 Depression Total Score: 5 07/23/19 23 3:04 PM EST documented as of this encounter
--- OUTSIDE RECORDS SUMMARY | 2025-06-08 00:50 | XMS_ITS | Encounter Summary ---
Author Organization [employer] Address [address] [facility] [address] [place] [address] Care Team Providers Care Low Altitude Air Defense Officer Name Role Phone Unavailable Primary Care Provider Unavailabl e Encounter Details Date Type Department Care Team ([facility] st Contact Info) Description 06/15/2024 Orders Only [facility] [address] [place] [address] Radha Catalan Social History Tobacco Use Types [...] Description 06/22/2025 1:15 PM EST Clinical Support [facility] [address] [place] [phone] Slime Deluna RN 07/09/2025 10:00 AM EST Office Visit [facility] [address] [place] [phone] Ivet Nelson MD [address] [place] [address] [phone] documented as of this encounter Procedures Procedure Name Priority Date/Time Associated Diagnosis Comments HM PAP/HPV Routine 09/18/2023 12:00 AM EDT documented in this encounter Results * (ABNORMAL) PAP/HPV (09/18/2023 12:00 AM EDT) Pap Smear 4. LSIL(A) 1. NILM us Historical Provider HEALTH MAINTENANCE Edited Result - Final documented in this encounter Visit Diagnoses Not on filedocumented in this encounter Additional Health Concerns Assessment Noted Time PHQ-9 Depression Total Score: 15 024 8:21 AM EST documented as of this encounter
--- OUTSIDE RECORDS SUMMARY | 2025-06-08 00:50 | XMS_ITS | Encounter Summary ---
Author Organization [employer] Address [address] [facility] [address] 7t [place] [address] Care Team Providers Care Gas Station Clerk Name Role Phone Unavailable Primary Care Provider Unavailabl e Encounter Details Date Type Department Care Team (Late st Contact Info) Description 08/10/2024 Orders Only [facility] 230 [place] [address] Slime Deluna RN Opioid dependence, uncomplicated (CMS/HCC) [...] PM EST Clinical Support [facility] [address] [place] [address] [phone] Slime Deluna RN 07/09/2025 10:00 AM EST Office Visit [address] [phone] Ivet Nelson MD [address] [place] [phone] Scheduled Orders Name Type Priority Associated Diagnoses [...] Noted Time PHQ-9 Depression Total Score: 15 06/12/ 024 8:21 AM EST documented as of this encounter
--- OUTSIDE RECORDS SUMMARY | 2025-06-08 00:50 | XMS_ITS | Encounter Summary ---
Author Organization [email or web address] Address 75 [facility] 7t [place] [address] Care Team Providers Care Lead Level Designer Name Role Phone Unavailable Primary Care Provider Unavailabl e Reason for Visit * Reason Comments Med Refill Encounter Details Date Type Department Care Team ([facility] st Contact Info) Description 06/19/2024 Refill [facility] 230 [place] [address] Blake Enciso MD 230 [place], [place] [phone] Opioid type dependence, continuous (CMS/HCC) Social History [...] Description 06/22/2025 1:15 PM EST Clinical Support [facility] [address] [place] [phone] Slime Deluna RN 07/09/2025 10:00 AM EST Office Visit [facility] [address] [place] [phone] Ivet Nelson MD [address] [place] [phone] documented as of this encounter Visit Diagnoses Diagnosis Opioid type dependence, continuous (CMS/HCC) (HCC) Opioid type dependence, continuous documented in this encounter Additional Health Concerns Assessment Noted Time PHQ-9 Depression Total Score: 15 024 8:21 AM EST documented as of this encounter
--- OUTSIDE RECORDS SUMMARY | 2025-06-08 00:50 | XMS_ITS | Clinical Summary ---
Author Organization [facility] Prior to 11/28/[address] [place] [phone] Care Team Providers Care Photo Offset Printer Name Role Phone Unavailable Primary Care Provider [...]
--- OUTSIDE RECORDS SUMMARY | 2025-06-08 00:50 | XMS_ITS | Encounter Summary ---
Author Organization [employer] Address 75 [facility] 7t [place] [address] Care Team Providers Care Cardiac Care Unit Nurse Name Role Phone Unavailable Primary Care Provider Unavailabl e Encounter Details Date Type Department Care Team ([facility] st Contact Info) Description 06/12/2024 Orders Only [facility] [address] [place] [address] Hanna Mills MD 230 [place], [place] [phone] Social History Tobacco Use Types Packs/Day Years [...] Description 06/22/2025 1:15 PM EST Clinical Support [facility] [address] [place] [phone] Slime Deluna RN 07/09/2025 10:00 AM EST Office Visit [facility] [address] [place] [phone] Ivet Nelson MD [address] [place] [phone] documented as of this encounter Visit Diagnoses Not on filedocumented in this encounter Additional Health Concerns Assessment Noted Time PHQ-9 Depression Total Score: 024 8:21 AM EST documented as of this encounter
--- OUTSIDE RECORDS SUMMARY | 2025-06-08 00:51 | XMS_ITS | Encounter Summary ---
Author Organization [employer] Address 75 [facility] 7t [place] [address] Care Team Providers Care [employer] Dean Name Role Phone Unavailable Primary Care Provider Unavailabl e Encounter Details Date Type Department Care Team ([facility] st Contact Info) Description 08/29/2022 Telephone [facility] [address] [place], [place] [phone] Hanna Mills MD 230 [place], [place] [phone] Social History Tobacco Use Types Packs/Day Years [...] Description 06/22/2025 1:15 PM EST Clinical Support [facility] [address] [place] [phone] Slime Deluna RN 07/09/2025 10:00 AM EST Office Visit [facility] [address] [place] [phone] Ivet Nelson MD [address] [place] [phone] documented as of this encounter Visit Diagnoses Not on filedocumented in this encounter Additional Health Concerns Assessment Noted Time PHQ-9 Depression Total Score: 5 07/23/19 23 3:04 PM EST documented as of this encounter
== END 2025-06-07 16:09 | disposition home or self-care (01) ==
LOC: HO.HWS 15:19
PROVIDERS: PCP Emergency Medicine; Visit Provider Obstetrics & Gynecology
DX: Z32.02 Encounter for pregnancy test, result negative (principal); R10.20 Pelvic and perineal pain unspecified side
CPT/HCPCS: 99213

== ENCOUNTER → 2025-06-07 15:19 | Outpatient (BNVA) | payer MEDICAID, SELFPAY | PROVIDERS: PCP Emergency Medicine; Visit Provider Obstetrics & Gynecology | DX: R10.20 Pelvic and perineal pain unspecified side (principal); Z32.02 Encounter for pregnancy test, result negative | CPT/HCPCS: 81002; 81025; 99212 ==